=== PATIENT | male | born 1985 | race Caucasian/White ===

== ENCOUNTER 2018-08-21 14:37 | Outpatient (CLI) | payer BC, SELFPAY ==
--- NOTE | 2018-08-21 14:29 | DI.RAD_ITS ---
SYMPTOMS/DIAGNOSIS: LEFT HIP PAIN, POPPING AND CREPITUS LEFT HIP AND PELVIS: No bony or joint abnormality is seen.
== END 2018-08-21 14:57 ==
PROVIDERS: Visit Provider Student in an Organized Health Care Education/Training Program
DX: M25.552 Pain in left hip (principal)
CPT/HCPCS: 73502

== ENCOUNTER 2020-11-10 10:58 | Outpatient (REF) | payer OTHER, SELFPAY ==
[2020-11-10 14:25] LABS: HCT 52.3 % (40.0-50.0); HGB 17.2 g/dL (13.5-17.5); MCH 30.7 pg (27.0-33.0); MCHC 32.9 % (32.0-36.0); MCV 93.2 fL (80-95); MPV 9.5 fL (8.0-11.0); Platelet Count 333 10^3/uL (130-400); RBC 5.61 10^6/uL (4.36-5.78); RDW 13.1 % (11.8-14.1); WBC 8.22 10^3/uL (4.4-10.8)
[2020-11-10 14:32] LABS: ALT 33 U/L (16-63); AST 23 U/L (15-37); Anion Gap 6.5 mmol/L (3-11); BUN 16 mg/dL (7-18); CO2 29.5 mmol/L (21.0-32.0); Calcium 9.8 mg/dL (8.5-10.1); Chloride 109 mmol/L (98-107); Glucose 69 mg/dL (74-106); Magnesium 2.2 mg/dL (1.8-2.4); Potassium 4.6 mmol/L (3.5-5.1); Sodium 145 mmol/L (136-145)
[2020-11-11 09:45] LABS: HIV-1/2 Ag & Ab Screen Negative (Negative)
[2020-11-11 10:38] LABS: Hepatitis C Ab w Rflx HCV PCR Negative (Negative)
== END 2020-11-10 10:59 | disposition home or self-care (01) ==
LOC: NCHCN 10:58
PROVIDERS: Visit Provider Nurse Practitioner Family
DX: Z11.4 Encounter for screening for human immunodeficiency virus [HIV] (principal); Z13.818 Encounter for screening for other digestive system disorders; R74.8 Abnormal levels of other serum enzymes; R00.2 Palpitations
CPT/HCPCS: 80048; 85027; 86803; 87389; 83735; 84450; 84460

== ENCOUNTER 2021-02-09 01:59 | Outpatient (CLI) | payer OTHER, SELFPAY ==
--- NOTE | 2021-02-09 10:30 | DI.US_ITS ---
APPROVED REPORT EXAM: Comprehensive 2D, Doppler, and color-flow Echocardiogram Patient Location: Out-Patient [facility] Fe[employer]: Mana Bartlett RDCS (AE) Indications: A Fib Other Information Study Quality: Good Conclusion Normal left ventricular wall thickness and chamber size. Estimated ejection fraction is 60%. There are no segmental wall motion abnormalities Normal right ventricular size and systolic function Both atria are normal in size There is no structural or hemodynamically significant valvular disease Normal estimated right ventricular systolic pressure Wall motion Left Ventricle The left ventricle is normal size. The left ventricular systolic function is normal. The left ventric ular ejection fraction is within the normal range. There is normal left ventricular wall thickness. T here is normal LV segmental wall motion. There is no ventricular septal defect visualized. LVEF is 60 %. Right Ventricle The right ventricle is normal size. The right ventricular systolic function is normal. The RVSP is 22 .4 mmHg. Atria The left atrium size is normal. The right atrium size is normal. The interatrial septum is intact wit h no evidence for an atrial septal defect. Aortic Valve The aortic valve is normal in structure. Aortic valve is trileaflet. There is no aortic valvular sten osis. No aortic regurgitation is present. Mitral Valve The mitral valve is normal in structure. No evidence of mitral valve stenosis. Trace to mild mitral r egurgitation. Tricuspid Valve The tricuspid valve is normal in structure. There is no tricuspid valve stenosis. Trace tricuspid reg urgitation. Pulmonic Valve The pulmonary valve is normal in structure. There is no pulmonic valvular stenosis. There is no pulmo kristel valvular regurgitation. Great Vessels The aortic root is normal in size. The ascending aorta is normal in size. Aortic arch is normal in ca liber. IVC is normal in size and collapses >50% with inspiration. Pericardium There is no pericardial effusion. 2D Dimensions IVSD d PLAX 0.91 cm M: 0.6-1.2 LV Vol A2C d MOD 153.8 mL LVPW d PLAX 0.92 cm M: 0.6 - 1.2 LV Vol A4C d MOD 131.1 mL LVID d PLAX 5.02 cm M: 4.2 - 5.8 LA vol/ BSA A2C s A-L 37.5 mL/m2 LVDs 3.50 cm M: 2.5 - 4.0 LA vol/ BSA A4C s A-L 23.7 mL/m2 Ao Root d 2.96 cm M: 3.1 - 3.7 LA Vol/ BSA Biplane s A-L 30.7 mL/m2 RA Area A4C 18.82 cm2 LA Area A4C s MOD 18.81 cm2 RA Vol/ BSA A4C s A-L 28.0 mL/m2 LA Area A2C s MOD 22.98 cm2 Ao Asc Diam d 3.24 cm M: 2.6 - 3.4 LV EF A4C MOD 59.7 % LV EF Teichholz 56.1 % LV EF A2C MOD 57.2 % LVEF (Baldwin's) 58.12 % M: 52 - 72 LV EF Biplane MOD 58.1 % LV Volume 106.03 mL M: 62 - 150 SV 84.89 mL LV Volume Index 47.97 mL/m2 M: 34 - 74 SV Index 38.37 mL/m2 LV Vol Biplane MOD 146.1 mL FS 29.40 % M-Mode TAPSE 2.84 cm (M/F) >1.7 LV Diastology MV E' medial 0.116 (>0.07 m/s) E/A Ratio 2.2 LV E/e MED 5.75 (<14) MV E Vmax 0.67 (0.4-1.3 m/s) MV E' lateral 0.122 (>0.1 m/s) MV A Vmax 0.30 (0.4-1.3 m/s) LV E/e LAT 5.45 (<14) MV E/A Ratio 1.96 MV E/E' medial 5.75 MV E/E' lateral 5.48 Aortic Valve LVOT Area 3.83 cm2 AoV Area Vmax 3.37 cm2 LVOT Vmax 1.00 m/s AoV Area/ BSA (Vmax) 1.52 cm2/m2 LVOT Mean Braxton. 0.61 m/s URSZULA Mean Braxton. 2.90 cm2 LVOT Peak Grad 4.0 mmHg URSZULA Mean Braxton. Index 1.31 cm2/m2 LVOT Mean Grad 1.8 mmHg LVOT VTI 0.194 m LVOT Diam s 2.20 cm AoV Vmax 1.13 m/s Velocity Ratio 0.88 AoV Mean Braxton. 0.81 m/s AoV Peak Grad 5.1 mmHg LVOT SV 74.18 mL AoV Mean Grad 2.9 mmHg AoV VTI 0.213 m AoV Area VTI 3.48 cm2 AoV Area/ BSA (VTI) 1.57 cm/m2 Mitral Valve MV DT 209 (160-240 msec) MV PHT 61 msec MV Area PHT 3.63 cm2 MV VTI 0.249 m MV Area VTI 2.98 (4.0-6.0 cm2) Pulmonary Valve PV Vmax 0.88 (0.5-1.5 m/s) RVOT Peak Gr. 2.04 mmHg PV Peak Grad 3.1 mmHg RVOT Mean Gr. 0.95 mmHg PV Mean Grad 1.7 mmHg RVOT VTI 0.148 m PV VTI 0.157 m RVOT Vmax 0.71 m/s Tricuspid Valve TR Peak Grad 19.3 mmHg TR Vmax 2.20 m/s RA Pressure 3.00 mmHg RVSP (TR) 22.4 mmHg
== END 2021-02-09 02:19 ==
PROVIDERS: Visit Provider Internal Medicine Cardiovascular Disease
DX: I48.91 Unspecified atrial fibrillation (principal)
CPT/HCPCS: 93306

== ENCOUNTER 2023-02-23 10:14 | Outpatient (CLI) | payer OTHER, SELFPAY ==
--- NOTE | 2023-02-23 10:07 | DI.RAD_ITS ---
Exam(s) XR HIP RT COMPLETE AP PELVIS EXAM: XR HIP RT COMPLETE AP PELVIS CLINICAL HISTORY: RIGHT HIP PAIN. TECHNIQUE: 2D digital imaging was performed. Two views COMPARISON: CR XR hip LT complete AP pelvis from 08/21/2018 FINDINGS: BONES: No acute fracture is present. No bony destructive lesion is seen. JOINTS: No dislocation present. Hip joint spaces are maintained. No significant acetabular spurrin g. SI joints are unremarkable. SOFT TISSUE: Normal. IMPRESSION: No acute abnormality. DATA REPOSITORY: RADIATION DOSE DELIVERED:
== END 2023-02-23 10:15 | disposition home or self-care (01) ==
LOC: DIORS 10:14
PROVIDERS: PCP Nurse Practitioner Family; Referring Provider Nurse Practitioner Family; Visit Provider Physician Assistant
DX: M25.551 Pain in right hip (principal)
CPT/HCPCS: 73502

== ENCOUNTER 2024-02-21 12:22 | Outpatient (REF) | payer BC, SELFPAY ==
--- OUTSIDE RECORDS SUMMARY | 2024-02-21 12:24 | XMS_ITS | Encounter Summary ---
Author Organization [facility] Address [facility] [place] [address] Care Team Providers Care Labor And Delivery Nurse Name Role Phone Sharri Rosario APRN Primary Care Provider [phone] Reason for Visit * Diagnostic Test (Routine) - Closed Specialty Diagnoses / Procedures Referred By Davidson t Referred To Contact Sleep Center Diagnoses Paroxysmal atrial fibrillation Non-restorative sleep Procedures Home Sleep Study Gregoria Hsieh APRN [facility] [place] [address] [facility] Sleep Medicine [address] [place] [address] Referral ID Status Reason Start Date Expiration Date V isits Requested Visits Authorized [id number] Closed Specialty Service Requested 09/12/2023 09/11/2024 1 1 Encounter Details Date Type Department Care Team (Late st Contact Info) Description 11/08/2023 12:00 PM EDT Procedure visit Sleep Center at [facility] [address] [place] [address] Nikki Fontanez MD [facility] [place] [address] Paroxysmal atrial fibrillation; Non-restorative sleep Social History Tobacco Use Types Packs/Day Years Used Date Smoking Tobacco: Former Cigarettes Passive Smoke Exposure: Past Smokeless Tobacco: Former Alcohol Use Standard Drinks/Week Comments Not Currently 0 (1 standard drink = 0.6 oz pur e alcohol) Sex and Gender Information Value Date Recorded Sex Assigned at Not on file Gender Identity Not on file Sexual Orientation Not on file documented as of this encounter Progress Notes * Nikki Fontanez MD - 11/08/2023 12:00 PM EDT Images from the original note were not included. REPORT OF DIAGNOSTIC HOME SLEEP TEST IDENTIFYING INFORMATION Roni Horn : 1985 REFERRING PHYSICIAN: Gregoria Hsieh APRN PRIMARY CARE PHYSICIAN: Sharri Rosario APRN History Of Present Illness: Roni Horn is a 38 y.o. male who presents for a home based polysomnogram in the setting of new atrial fibrillation diagnosis, s/p ablation. H/o anxiety. Denies snoring. Reported non-restorative sleep. Limited Polysomnography: The recording includes chest/abdominal respiratory effort, nasal pressure air flow, snoring and oxygen saturation (by pulse oximeter). Comment: - Respiratory: EDNA 4% of 4 was noted with a minimum saturation of 88%. Mean saturation of 93%. [place] 1 minute was spent with a saturation less than or equal to 88%. - Cardiac: Heart rate ranged from 35 to 110 bpm with an average heart rate of 57 bpm. - Other: Total recording time of 583 minutes. Assessment: Mr. Roni Horn is a 38 y.o. male whose home sleep test was non- diagnostic for obstructive sleep apnea. Mild cyclic desaturations to a low of 88% were observed, mean 93%. Home sleep testing may underestimate sleep apnea severity. Results and recommendations relayed via [facility]. Recommendations: To clarify if sleep disordered breathing is playing a role in presenting symptoms,a full in lab diagnostic polysomnogram is recommended. - In lab PSG, split for AHI 30 *Results to Gregoria Hsieh APRN for review and care coordination. Nikki Fontanez MD [facility] HOME SLEEP APNEA TEST REPORT Patient Roni Horn Study Date 11/08/2023 1985 Age 37 Height 6'5 Weight (lbs.) 196 BMI 23.2 PSG Tech: DERIK Gutierrez Scoring Tech DERIK Michel Interpreting Physician Ordering Provider Fellow Physician ENTER General Test Details Type III home sleep apnea testing was performed utilizing nasal pressure, single thoracoabdominal movement, heart rate, and oxygen saturation according to established AASM guidelines. Recording Start Time: :13:03 Monitoring Start Time: ::03 Recording End Time: : Monitoring End Time: :03 Total Recording Time (TRT): 583.0 minutes Monitoring Time (MT): 583.0 minutes Respiratory Details Respiratory Event Total Count Index (events/hr) Obstructive apnea 5 0.5 Mixed apnea 0 0.0 Central apnea 24 2.5 Sum of all apnea types 29 3.0 Hypopneas without associated desaturation 0 0.0 Hypopneas with desaturation >=4% (CMS) 10 1.0 4% Respiratory Event Index (4%EDNA): 4.0 *Includes the sum of all apneas and hypopneas (assoc. with desaturation of >=4%) per hour of monitoring. 4% AHI (CMS): 4.0 *Includes the sum of all apneas and hypopneas (assoc. with desaturation of >=4%) per hour of monitoring. Tom-Gutierrez Breathin.0% of total monitoring time Minimum SpO2: 88% Average SpO2 (during TRT): 93% SpO2 <= X%: Total Time <=90% 0.4 min <=89% 0.2 min <=88% 0.1 min SpO2 Ranges: Total Time 90%-99% 571.8 min 80%-90% 0.2 min 70%-80% 0.0 min 60%-70% 0.0 min 0%-60% 0.0 min Cardiac Details Minimum Heart Rate 35 bpm Maximum Heart Rate 110 bpm Average Heart Rate 57 bpm Graphs Time Scale Respiratory Event Graph SpO2 Trend * Gregoria Hsieh APRN - 11/08/2023 12:00 PM EDT PSG ordered. Please contact to schedule. Thank you documented in this encounter Plan of Treatment Upcoming Encounters Date Type Department Care Team (Late st Contact Info) Description 02/29/2024 7:30 PM EDT Procedure visit Sleep Center at [facility] [address] [place] [address] 04/11/2024 1:00 PM EST Office Visit Cardiology at [address] [address] Gerardo Lobo MD [facility] [place] [address] documented as of this encounter Visit Diagnoses Diagnosis Paroxysmal atrial fibrillation Atrial fibrillation Non-restorative sleep Other sleep disturbances documented in this encounter Care Teams Labor And Delivery Nurse Relationship Specialty Start Date End Date Sharri Rosario APRN [address] [place] [address] PCP - General Family Medicine 06/01/22 documented as of this encounter
--- OUTSIDE RECORDS SUMMARY | 2024-02-21 12:24 | XMS_ITS | Clinical Summary ---
Author Organization [place] [address] Care Team Providers Care Audit Director Name Role Phone Sharri Rosario APRN Primary Care Provider Allergies Active Allergy Reactions Criticality Noted Date Comments Codeine Nausea Only 07/04/2022 Medications Medication Sig Dispensed Refills Start Date End Date Status traZODone (Desyrel) 50 mg tablet 1/2 to 2 tabs HS as directed (I provided him a specific titration schedule.Please call our office if questions.) 30 tablet 2 05/31/2023 Active Additional Information Patient not taking.Reported on 01/29/2024 LORazepam (Ativan) 0.5 mg tablet 1 tab TID PRN. 20 tablet 10/17/2023 Active Additional Information Patient not taking.Reported on 11/27/2023 LORazepam (Ativan) 0.5 mg tablet 1 tab TID PRN. 60 tablet 2 10/17/2023 Active dilTIAZem XR (Dilacor XR) 120 mg ER (XR/XT) 24 hr capsuleIndication s:SVT (supraventricular tachycardia) Take 1 capsule by mouth daily for 30 days. 30 capsule 01/29/2024 02/28/2024 Active hydrOXYzine (Atarax) 25 mg tablet Take 1 tablet by mouth 3 times daily as needed for Itching. 45 tablet 2 02/05/2024 Active buPROPion SR (Wellbutrin SR) 100 mg SR 12 hr tablet 1 tab QAM x 4 days then increase to 1 tab BID. 60 tablet 2 02/05/2024 Active Active Problems Problem Noted Date Diagnosed Date Paroxysmal atrial fibrillation 07/16/2023 PAF (paroxysmal atrial fibrillation) 07/04/2022 Encounters Date Type Department Care Team Description 02/20/2024 Telephone Cardiology at [address] [address] Chary Soriano RN 01/29/2024 1:40 PM EDT Office Visit Cardiology at [place] [phone] Gerardo Lobo MD SVT (supraventricular tachycardia) 01/29/2024 Travel 12/24/2023 6:45 AM EDT - 12/24/2023 11:59 PM EDT Hospital Encounter Non-[place] [address] MD PAF (paroxysmal atrial fibrillation); History of radiofrequency ablation (RFA) for complex left atrial arrhythmia; Palpitations Discharge Disposition: Home 11/28/2023 Orders [place] [address] Ranjit Padilla MD Left wrist injury, initial encounter 11/27/2023 1:30 PM EDT - 11/27/2023 11:59 PM EDT Hospital Encounter Non-[place]vasive [place] [address] MD PAF (paroxysmal atrial fibrillation); History of radiofrequency ablation (RFA) for complex left atrial arrhythmia; Dilated cardiomyopathy Discharge Disposition: Home 11/27/2023 1:00 PM EDT Office Visit Cardiology at [address] [address] Peter Jaramillo PA PAF (paroxysmal atrial fibrillation); History of radiofrequency ablation (RFA) for complex left atrial arrhythmia; Dilated cardiomyopathy; Palpitations 11/27/2023 Travel 11/25/2023 12:10 AM EDT Ancillary Procedure Radiology Library at [facility] [place] [address] Sharri Rosario APRN 11/25/2023 12:05 AM EDT Ancillary Procedure Radiology Library [place] [facility] [place] [address] Sharri Rosario APRN 11/25/2023 Ancillary Procedure Radiology Library [place] [address] Sharri Rosario APRN 11/22/2023 Orders Only Sleep Center at 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 Paroxysmal atrial fibrillation; Non-restorative sleep; Anxiety; Depression, unspecified depression type from Last 3 Months Family History Relation Status Comments Father Alive Mother Alive Social History Tobacco Use Types Packs/Day Years Used Date Smoking Tobacco: Former Cigarettes Passive Smoke Exposure: Past Smokeless Tobacco: Former Tobacco Cessation:Counseling Given: Not Answered Alcohol Use Standard Drinks/Week Comments Not Currently 0 (1 standard drink = 0.6 oz pur e alcohol) Sex and Gender Information Value Date Recorded Sex Assigned at Not on file Gender Identity Not on file Sexual Orientation Not on file Last Filed Vital Signs Vital Sign Reading Time Taken Comments Blood Pressure 141/91 01/29/2024 1:35 PM EDT Pulse 56 01/29/2024 1:35 PM EDT Temperature 36.9 ??C (98.4 ??F) 07/17/2023 5:25 AM ED T Respiratory Rate 20 07/17/2023 5:25 AM EDT Oxygen Saturation 100% 01/29/2024 1:35 PM EDT Inhaled Oxygen Concentration - - Weight 87.7 kg (193 lb 6.4 oz) 01/29/2024 1:35 P M EDT Height 195.6 cm (6' 5) 01/29/2024 1:35 PM EDT Body Mass Index 22.93 01/29/2024 1:35 PM EDT Plan of Treatment Upcoming Encounters Date Type Department Care Team (Late st Contact Info) Description 02/29/2024 7:30 PM EDT Procedure visit Sleep Center at [facility] [address] [place] [phone] 04/11/2024 1:00 PM EST Office Visit Cardiology at [address] [place] [phone] Gerardo Lobo MD [facility] [address] [place] [address] Health Maintenance Due Date Last Done Comments HIV screen 2002 Hepatitis C Screening 2002 Lipid Screening 2002 Hepatitis B vaccine (0-59 yrs) (1) 11/18/2003 Tetanus/Diphtheria/Pertussis Vaccines (1 - Tdap) 11/17 Covid-19 Vaccine (1 - 2022- season) 2023 Influenza (Flu) vaccine (1 o f 1 - Influenza standard series) 12/30/2023 Procedures Procedure Name Priority Date/Time Associated Diagnosis Comments ZIOPATCH 48 HRS-15 DAYS Routine 12/24/2023 6:45 AM EDT PAF (paroxysmal atrial fibrillation) History of radiofrequency ablation (RFA) for complex left atrial arrhythmia Palpitations ECHO COMPLETE Routine 11/27/2023 2:40 PM EDT PAF (paroxysmal atrial fibrillation) History of radiofrequency ablation (RFA) for complex left atrial arrhythmia Dilated cardiomyopathy EKG 12-LEAD Routine 11/27/2023 1:35 PM EDT PAF (paroxysmal atrial fibrillation) DIAGNOSTIC RADIOLOGY SCAN 11/27/2023 12:00 AM EDT FILM LIBRARY STORAGE ONLY CT WRIST Routine 11/25/2023 12:10 AM EDT FILM LIBRARY STORAGE ONLY DX UPPER EXTREMITY Routine 11/25/2023 12:05 AM EDT FILM LIBRARY STORAGE ONLY DX HAND Routine 11/25/2023 12:00 AM EDT from Last 3 Months Results * Ziopatch 48 Hrs-15 Days (12/24/2023 6:45 AM EDT) Total Enrollment Period [id number] Anatomical Region Laterality Modality Other 12/24/2023 Narrative 01/21/2024 3:01 PM EDT [facility] ? Zio Patch Ambulatory Cardiac Event Monitor Report Indication for Study: [Paroxysmal atrial fibrillation] Duration of recording: ??[11 days 12 hours] Summary Data: Minimum rate: ??[34] Average rate: ??[78] Maximum rate: ??[175] Predominant Rhythm: ??[Normal sinus rhythm] Atrial fibrillation: ??[None seen] Significant Pauses: ??[None seen] Patient Diary Events: Triggered Events (button pushes): ??[10] Diary Events: [0] Ectopic beats: Atrial premature beats (APC? s): [Less than 1%] Ventricular premature beats (VPC's): [Less than 1%] Patel Rhythm Findings: 1. ??[Throughout the recording normal sinus rhythm is the predominant rhythm with an average heart rate of 78 bpm. Rare isolated atrial premature contractions and rare atrial couplets are seen. ??There were 7 episodes of supraventricular tachycardia the longest lasting 11 beats at a maximum heart rate of 207 bpm. ??No definite atrial fibrillation was seen Rare premature ventricular contractions and ventricular couplets seen. ??No complex ventricular tachycardia episodes seen No pauses] Note: ??The full PDF version of this Zio evaluation is available for review. ??For medical providers accessing via the electronic medical record, the PDF can be found on the Chart Review > Media tab. ??For patients accessing the study from [facility] (My Chart), click on the link or links found in the IMAGES area below the text of the report. Gerardo Lobo MD FACC Dwaine Lane MD CARDIAC SERVICES ORD ERABLES * ECHO COMPLETE (11/27/2023 2:40 PM EDT) EF 69 HEARTLAB SYSTEM Anatomical Region Laterality Modality Cardiac Other 11/27/2023 2:09 PM EDT Narrative 11/27/2023 5:26 PM EDT 1 [place] [address] ? Echocardiogram Report Name: MERYL HORN ?Study Date: 11/27/2023 02:09 PMBP: 136/76 mmHg ? Patient Location: : 1985 ? Height: 196 cm ? Account: [id number] Age: 38 yrs ? Weight: 89 kg Gender: Male ?BSA: 2.2 m2 Ordering Physician: DWAINE LANE Referring Physician: PETER JARAMILLO Performed By: Javan Bolivar RDCS Reason For Study: PAF (paroxysmal atrial fibrillation) Interpreting Fellow: Basilio Foy. Exam Location: [facility]. Interpretation Summary -Left ventricle is of normal chamber size and wall thickness. Systolic function is normal with an ejection fraction of 69% and no wall motion abnormalities. -Right ventricle is of normal size and function. -There is mild bi-atrial dilation. -There is no hemodynamically significant valve disease. - Compared with previous study of 06/20/23, systolic function has normalized, severe diastolic dysfunction no longer present Procedure Complete-47937. 3D - 23885. Satisfactory quality. There is normal sinus rhythm. Left Ventricle Left ventricle is of normal size. Wall thickness is normal. There is no left ventricular outflow tract obstruction. There is no ventricular septal defect. Left ventricular systolic function is normal. The left ventricular ejection fraction is 69% by Baldwin's biplane. There are no segmental wall motion abnormalities. Right Ventricle The right ventricle is of normal size. Right ventricular systolic function is normal. Left Atrium The left atrium is mildly dilated. There is no evidence for a patent foramen ovale. Right Atrium The right atrium is mildly dilated. Aortic Valve The aortic valve is tricuspid. There is no aortic stenosis. There is no aortic regurgitation. Mitral Valve The mitral valve is structurally normal. There is trace mitral regurgitation. Tricuspid Valve The tricuspid valve is structurally normal. There is trace tricuspid regurgitation. Pulmonic Valve The pulmonic valve appears to be structurally normal. There is trace pulmonic valve regurgitation. Great Arteries The diameter at the level of the sinuses of Valsalva is 3.5 cm. The maximum diameter of the proximal ascending aorta is 3.2 cm. Venous Inferior vena cava is normal in size. Inferior vena cava collapse greater than 50% with respiration. Pericardium/Pleural The pericardium appears normal. Hemodynamics Pulmonary artery hypertension could not be assessed due to inadequate tricuspid regurgitation jet. The estimated right atrial pressure is 3mmHg. Left ventricular diastolic function is normal. Left ventricular filling pressure is normal. Ejection Fraction ?2D Measurements ? Volumes EF(MOD-bp): 69.2 % ?IVSd: 0.96 cm ?LAV(MOD- bp) Indexed: ?LVIDd: 5.0 cm ?LVIDs: 2.9 cm ?37.8 ml/m2 ?LVPWd: 1.1 cm ?RA A4Cs_phl: 18.4 cm2 ?RWT: 0.42 {ratio} ?EDV(MOD-bp) Indexed: ?LV mass(C)d: 187.3 grams ? 56.5 ml/m2 ?LV mass(C)dI: 84.3 grams/m2 ?ESV(MOD- bp) Indexed: ?Ao root diam: 3.5 cm ? 17.4 ml/m2 ?Ao root diam index: 1.6 ?asc Aorta Diam: 3.2 cm ?TAPSE_phl: 2.4 cm Doppler MV E max braxton: 77.6 cm/sec MV A max braxton: 52.3 cm/sec MV E/A: 1.5 MV dec time: 0.22 sec Lat Peak E' Braxton: 13.2 cm/sec E/e' (lat): 5.9 Med Peak E' Braxton: 9.5 cm/sec E/e' (med): 8.2 E/e' Average: 7.0 I ?WMSI = 1.00 ? % Normal = 100 ?Segments ??Size X - Cannot ?2 - ?4 - ?1-2 ? small Interpret ?1 - Normal ?? Hypokinetic 3 - Akinetic Dyskinetic ?? 3-5 ? moderate 5 - ? 6-14 ?large Aneurysmal ?15-16 ?? diffuse Procedure Note Rod Anderson MD - 11/27/2023 1 [place] [address] Echocardiogram Report Name: MERYL HORN Study Date: 402:09 PMBP: 136/76 mmHg Patient Location: : 1985 Height: 196 cm Account: [id number] Age: 38 yrs Weight: 89 kg Gender: Male BSA: 2.2 m2 Ordering Physician: DWAINE LANE Referring Physician: PETER JARAMILLO Performed By: Javan Bolivar RDCS Reason For Study: PAF (paroxysmal atrial fibrillation) Interpreting Fellow: Basilio Foy. Exam Location: [facility]. Interpretation Summary -Left ventricle is of normal chamber size and wall thickness. Systolicfunction is normal with an ejection fraction of 69% and no wall motionabnormalities. -Right ventricle is of normal size and function. -There is mild bi-atrial dilation. -There is no hemodynamically significant valve disease. - Compared with previous study of 06/20/23, systolic function hasnormalized, severe diastolic dysfunction no longer present Procedure Complete-45628. 3D - 61664. Satisfactory quality. There is normal sinusrhythm. Left Ventricle Left ventricle is of normal size. Wall thickness is normal. There is noleft ventricular outflow tract obstruction. There is no ventricular septaldefect. Left ventricular systolic function is normal. The left ventricular ejectionfraction is 69% by Baldwin's biplane. There are no segmental wall motionabnormalities. Right Ventricle The right ventricle is of normal size. Right ventricular systolic functionis normal. Left Atrium The left atrium is mildly dilated. There is no evidence for a patentforamen ovale. Right Atrium The right atrium is mildly dilated. Aortic Valve The aortic valve is tricuspid. There is no aortic stenosis. There is noaortic regurgitation. Mitral Valve The mitral valve is structurally normal. There is trace mitralregurgitation. Tricuspid Valve The tricuspid valve is structurally normal. There is trace tricuspid regurgitation. Pulmonic Valve The pulmonic valve appears to be structurally normal. There is tracepulmonic valve regurgitation. Great Arteries The diameter at the level of the sinuses of Valsalva is 3.5 cm. Themaximum diameter of the proximal ascending aorta is 3.2 cm. Venous Inferior vena cava is normal in size. Inferior vena cava collapse greaterthan 50% with respiration. Pericardium/Pleural The pericardium appears normal. Hemodynamics Pulmonary artery hypertension could not be assessed due to inadequatetricuspid regurgitation jet. The estimated right atrial pressure is 3mmHg. Leftventricular diastolic function is normal. Left ventricular filling pressure isnormal. Ejection Fraction 2D Measurements Volumes EF(MOD-bp): 69.2 % IVSd: 0.96 cm LAV(MOD-bp)Indexed: LVIDd: 5.0 cm LVIDs: 2.9 cm 37.8 ml/m2 LVPWd: 1.1 cm RA A4Cs_phl: 18.4cm2 RWT: 0.42 {ratio} EDV(MOD-bp)Indexed: LV mass(C)d: 187.3 grams 56.5 ml/m2 LV mass(C)dI: 84.3 grams/m2 ESV(MOD-bp)Indexed: Ao root diam: 3.5 cm 17.4 ml/m2 Ao root diam index: 1.6 asc Aorta Diam: 3.2 cm TAPSE_phl: 2.4 cm Doppler MV E max braxton: 77.6 cm/sec MV A max braxton: 52.3 cm/sec MV E/A: 1.5 MV dec time: 0.22 sec Lat Peak E' Braxton: 13.2 cm/sec E/e' (lat): 5.9 Med Peak E' Braxton: 9.5 cm/sec E/e' (med): 8.2 E/e' Average: 7.0 I WMSI = 1.00 % Normal = 100 SegmentsSize X - Cannot 2 - 4 - 1-2small Interpret 1 - Normal Hypokinetic 3 - Akinetic Dyskinetic 3-5moderate 5 - 6-14large Aneurysmal 15-16diffuse Dwaine Lane MD ECHO ORDERABLES * EKG 12 Lead (11/27/2023 1:35 PM EDT) Ventricular rate 83 BPM MUSE SYSTEM Atrial Rate 83 BPM MUSE SYSTEM P-R Interval 150 ms MUSE SYSTEM QRS Duration 92 ms MUSE SYSTEM Q-T Interval 344 ms MUSE SYSTEM QTC Calculated (Bezet) 404 ms MUSE SYSTEM Calculated P [place] 80 degrees MUSE SYSTEM Calculated R [place] 95 degrees MUSE SYSTEM Calculated T [place] 19 degrees MUSE SYSTEM INTERPRETATION Normal sinus rhythm Rightward axis Pulmonary disease pattern Abnormal ECG When compared with ECG of 16-JUL-2023 16:20, No significant change was found Confirmed by MD Letty, Ambrose ([id number]) on 11/27/2023 3:26:35 PM MUSE SYSTEM 11/27/2023 1:35 PM EDT 11/27/2023 3:[address] MD ECG ORDERABLES MUSE SYSTEM * Scan Doc: Diagnostic Radiology (11/27/2023 12:00 AM EDT) Anatomical Region Laterality Modality Other Narrative 11/27/2023 12:00 AM EDT Ordered by an unspecified provider. Scanning Provider MEDIA MGR SCAN EXT O RDR/RSLT * Film Library- Storage Only CT Wrist (11/25/2023 12:10 AM EDT) Narrative [facility] - 11/27/2023 12:11 PM EDT This exam is auto-finalizing. It's purpose is for storage only. Sharri Rosario APRN [facility] FILM LIBRARY ORD ERABLES Performing Organization Address [facility] de Phone Number [place], [place] * Film Library- Storage Only DX Upper Extremity (11/25/2023 12:05 AM EDT) Narrative [facility] - 11/27/2023 12:11 PM EDT This exam is auto-finalizing. It's purpose is for storage only. Sharri Rosario APRN [facility] FILM LIBRARY ORD ERABLES Performing Organization Address [facility] de Phone Number [place], [place] * Film Library- Storage Only DX Hand (11/25/2023 12:00 AM EDT) [facility] - 11/27/2023 12:11 PM EDT This exam is auto-finalizing. It's purpose is for storage only. Sharri Rosario APRN [facility] [employer] ORD ERABLES Performing Organization Address [facility] de Phone Number [place], [place] from Last 3 Months Care Teams Audit Director Relationship Specialty Start Date End Date Sharri Rosario APRN [address] [place] [address] PCP - General Family Medicine 06/01/22
--- OUTSIDE RECORDS SUMMARY | 2024-02-21 12:24 | XMS_ITS | Encounter Summary ---
Author Organization [facility] Address [facility] [place] [address] Care Team Providers Care Brazer Induction Name Role Phone Sharri Rosario APRN Primary Care Provider [phone] Encounter Details Date Type Department Care Team (Latest Contact Info) Description 10/10/2023 8:19 AM EDT - 10/10/2023 11:59 PM EDT Hospital Encounter XRay at [address] [place] [address] Sharri Rosario APRN [address] [place] [address] Abnormality of breathing Discharge Disposition: Home Social History Tobacco Use Types Packs/Day Years [...] on file documented as of this encounter Medications at Time of Discharge Medication Sig Dispensed Refills Start Date End Date traZODone (Desyrel) 50 mg tablet 1/2 to 2 tabs HS as directed (I provided him a specific titration schedule.Please call our office if questions.) 30 tablet 2 05/31/2023 buPROPion SR (Wellbutrin SR) 100 mg SR 12 hr tablet 1 tab QD (in addition to 150 mg XL every morning on a separate Rx). 30 tablet 2 10/10/2023 02/05/2024 buPROPion SR (Wellbutrin SR) 100 mg SR 12 hr tablet 1 tab every morning for 1 week and then D/C unless one tab a day proves beneficial. On a separate Rx will eprescribe bupropion 150 mg XL. 7 tablet 4 08/31/2023 12/20/2023 buPROPion XL (Wellbutrin XL) 150 mg XL 24 hr tablet Take 1 tablet by mouth every morning. He will begin 150 mg XL after trying 100 mg SR for a week. However if 100 mg SR provides benefit he will remail on 100 mg SR and not take 150 mg XL. 30 tablet 2 08/31/2023 12/20/2023 LORazepam (Ativan) 0.5 mg tablet 1 tab TID PRN. 60 tablet 2 08/02/2023 10/17/2023 apixaban (Eliquis) 5 mg tablet Take 1 tablet by mouth 2 times daily for 90 days. 07/17/2023 10/15/2023 documented as of this encounter Plan of Treatment Upcoming Encounters Date Type Department Care Team (Late st Contact Info) Description 02/29/2024 7:30 PM EDT Procedure visit Sleep Center at [address] [phone] 04/11/2024 1:00 PM EST Office Visit Cardiology at [address] [phone] Gerardo Lobo MD [facility] [place] [address] documented as of this encounter Procedures Procedure Name Priority Date/Time Associated Diagnosis Comments XR CHEST PA AND LATERAL Routine 10/10/2023 8:28 AM EDT Abnormality of breathing documented in this encounter Results * XR Chest PA & Lateral (Generic) (10/10/2023 8:28 AM EDT) WORKSTATION ID [id number] RAD Anatomical Region Laterality Modality Chest N/A Digital Radiogra phy Impressions 10/10/2023 10:24 AM EDT Normal chest radiographs. Thank you for letting us participate in the care of this patient. ??If you are a health care provider and have any questions regarding this report, please contact the number below. ??For patients who have questions please contact the health dog daycare provider that requested your imaging first. ? Narrative 10/10/2023 10:24 AM EDT EXAMINATION: XR CHEST PA AND LATERAL (GENERIC) CLINICAL HISTORY: Breathing abnormality difficulty taking deep breaths TECHNIQUE: PA and lateral views of the chest COMPARISON: Chest radiographs July 16, 2023 FINDINGS: Lungs are clear without pleural effusion or pneumothorax. Cardiomediastinal contours and pulmonary vasculature are normal. No free air below the diaphragm or focal extrathoracic soft tissue abnormality. No displaced fracture or destructive bone lesion. Suture anchors from a left glenoid labral repair are in unchanged position. Procedure Note Tari No MD - 10/10/2023 EXAMINATION: XR CHEST PA AND LATERAL (GENERIC) CLINICAL HISTORY: Breathing abnormality difficulty taking deep breaths TECHNIQUE: PA and lateral views of the chest COMPARISON: Chest radiographs July 16, 2023 FINDINGS: Lungs are clear without pleural effusion or pneumothorax. Cardiomediastinal contours and pulmonary vasculature are normal. No free air below the diaphragm or focal extrathoracic soft tissueabnormality. No displaced fracture or destructive bone lesion. Suture anchors from aleft glenoid labral repair are in unchanged position. IMPRESSION Normal chest radiographs. Thank you for letting us participate in the care of this patient. If youare a health care provider and have any questions regarding this report,please contact the number below. For patients who have questions please contactthe health dog daycare provider that requested your imaging first. Sharri Rosario APRN IMG DX ORDERABLES documented in this encounter Visit Diagnoses Diagnosis Abnormality of breathing Respiratory abnormality, unspecified documented in this encounter Care Teams Brazer Induction Relationship Specialty Start Date End Date Sharri Rosario APRN [address] [place] [address] PCP - General Family Medicine 06/01/22 documented as of this encounter
--- OUTSIDE RECORDS SUMMARY | 2024-02-21 12:24 | XMS_ITS | Encounter Summary ---
Author Organization [facility] Address [address] [place] [address] Care Team Providers Care Sugar Refiner Name Role Phone Sharri Rosario Primary Care Provider [phone] Reason for Referral * Consult (Routine/Next Available) - Receiving Office to Obtain Authorization Specialty Diagnoses / Procedures Referred By Contac t Referred To Contact Orthopedic Surgery Diagnoses Closed fracture of left wrist, initial encounter [facility] Ed [address] [place] [address] [facility] Upper Extremity [address] [place] [address] Referral ID Status Reason Start Date Expiration Date Visits Requested Visits Authorized [id number] Receiving Office to Obtain Authorization Specialty Services Required 4 1 1 Question Answer Scheduling Comments (optional ? describe specific scheduling needs if applicable): Operative provider Reason for Request: Left distal radius fracture * Consult (Routine/Next Available) - Receiving Office to Obtain Authorization Specialty Diagnoses / Procedures Referred By Contac t Referred To Contact Orthopedic Surgery Diagnoses Closed fracture of left wrist, initial encounter Gm Freed MD [address] [facility], [address] [place] [address] [facility]o Upper Extremity [address] [place] [address] Referral ID Status Reason Start Date Expiration Date Visits Requested Visits Authorized [id number] Receiving Office to Obtain Authorization Specialty Services Required 4 1 1 Question Answer Reason for Request: cast Reason for Visit * Reason Comments Wrist Injury Pt arrives ambulator y to triage for evaluation of left wrist pain after falling on it while playing basketball this morning. CSMTs intact, pain with movement, mild swelling noted. Encounter Details Date Type Department Care Team (Late st Contact Info) Description 11/25/2023 10:16 EDT - 11/25/2023 15:38 EDT Emergency [facility] Emergency Department - [address] [address] Gm Freed MD [address] [place] [address], [address] [place] [address] Closed fracture of left wrist, initial encounter (Primary Dx) Discharge Disposition: Home or Self Care Social History Tobacco Use Types Packs/Day Years Used Date Smoking Tobacco: Never Assessed Interpersonal Safety Answer Date Record ed Physically Hurt Never 04/20/2020 Verbally Threaten Not on file 04/20/2020 Sex and Gender Information Value Date Recorded Sex Assigned at Not on file Gender Identity Male 11/25/2023 10:46 EDT Sexual Orientation Not on file documented as of this encounter Last Filed Vital Signs Vital Sign Reading Time Taken Comments Blood Pressure 130/89 11/25/2023 1535 EDT Pulse 57 11/25/2023 1535 EDT Temperature 36.6 ??C (97.9 ??F) 11/25/2023 1535 EDT Respiratory Rate 18 11/25/2023 1535 EDT Oxygen Saturation 100% 11/25/2023 1535 EDT Inhaled Oxygen Concentration - - Weight 90.7 kg (200 lb) 11/25/2023 0957 EDT Height 195.6 cm (6' 5) 11/25/2023 0957 EDT Body Mass Index 23.72 11/25/2023 0957 EDT documented in this encounter Discharge Instructions * Attachments The following attachments cannot be sent through Care Everywhere. * Wrist Fracture ([place]) documented in this encounter Discharge Disposition Disposition Code Departure Means Destination Comment s Home or Self Skilled Nursing documented in this encounter Consult Notes * Peter Almanzar MD - 11/25/2023 0675 EDT Orthopaedic Surgery Consultation Consultation requested by: Dr. Freed for: Left distal radius fracture HPI: Roni Horn is a right-hand dominant 38 y.o. 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 Patient was playing [employer] basketball game and went for a jump and motion was bumped falling onto his left side. He landed on his left hand and wrist. He did develop some left wrist pain but he continued to play however his left wrist continued to hurt as he was playing and noticed some swelling beginning. He came to [facility] where he is found to have the above injuries. He currently endorses some weakness with pinch strength otherwise he has no numbness or paresthesias and other than wrist pain denies pain or injury to any other part of his body. Particularly denies pain to his left elbow. Ambulatory status: Independent Patient lives with his in [place], [place]. 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 Denies tobacco use, rare alcohol use denies IV drug use. Patient was seen and examined within 30 minutes of having received the consult and initially discussed with consulting provider. No past medical history on file. No past surgical history on file. Prior to Admission medications Not on File Allergies Allergen Reactions Codeine Stomach pain No family history on file. Social History: Occupational History Not on file Review of Systems: Per HPI Physical Exam: BP 130/89 (BP Cuff Location: Right arm, BP Patient Position: Semi fowlers) Pulse 57 Temp 36.6 ??C (97.9 ??F) (Oral) Resp 18 Ht (!) 195.6 cm (77) Wt 90.7 kg (200 lb) SpO2 100% BMI 23.72kg/m?? General: alert, awake, no apparent distress Respiratory: Brief wheezing in the right upper lobes otherwise clear to auscultation bilaterally with no appreciable rales CV: Regular rate and rhythm with S1 and S2 heard and no murmurs, no rubs, no gallops Focused Musculoskeletal and Neurovascular Examination Left upper extremity: - There is some swelling over the left dorsal wrist but there is no open injury or laceration no rash or open wounds - Tenderness to palpation at the left wrist post distal radius aspect in the ulnar side of around the ulnar styloid. otherwise, no tenderness to palpation of the phalanges, metacarpals, carpals, proximal forearm, elbow, humerus, scapular spine, acromion, clavicle. - Sensation intact to light touch in median, ulnar, radial, axillary nerve distributions - 5/5 strength in flexor pollicis longus, extensor pollicis longus, interossei, ancillary services manager therapy; 5/5 strength in elbow flexion, elbow extension, shoulder abduction - 2+ radial pulse Labs: Diagnostic Imaging: -Left hand, wrist, forearm radiographs demonstrate a left distal radius fracture primarily in the dorsal surface of the bone with impaction from the carpal bones. No evidence of volar cortex involvement or fracture. There is ulnar styloid fracture. No evidence of fracture within the carpal bones. - CT of the left wrist demonstrates a aforementioned dorsally impacted distal radius fracture involving the dorsal cortex but not the volar cortex. There is a bone island in the scaphoid but no evidence of scaphoid fracture carpal bone fracture. Ulnar styloid fracture as of known injury. There is greater than 2 mm articular step-off. Procedure: Obtained verbal consent. Risks, benefits, and alternatives discussed. Patient elected to proceed with placement of dorsal volar splint to left distal radius fracture. Post-procedure exam unchanged. Post-procedure images were the CT scans. No postreduction radiographs were obtained because no reduction was performed. A supervising physician was present/available for reynolds and critical portions of the procedure. Assessment: Roni Horn [id number] Roni Horn is a right-hand dominant 38 y.o. male with PMH of cardiac ablation (previously on Eliquis but no longer), left shoulder instability (status post open treatment of unknown procedure), who experienced a closed left distal radius fracture with articular impaction greater than 2 mm and a left ulnar styloid fracture after a basketball game injury. He was neurovascularly intact and was placed in a short arm splint. He was instructed to follow-up in our upper extremity clinic for management of his injury. Plan: No further acute orthopaedic intervention NWB left upper extremity, otherwise AAT Aggressive elevation Splint precautions provided: keep splint clean, dry, and intact. Return precautions/indications provided including new onset numbness, tingling, weakness, pain out of proportion of the injury. Follow-up in orthopedics upper extremity clinic. We will place referral. Pain management per emergency department provider Discussed with: Dr. Dilshad ALMANZAR MD 11/25/23 23:20 documented in this encounter ED Notes * Jackelyn Lopez RN - 11/25/2023 1537 EDT Pt discharged to home by private car with family. AVS reviewed and pt verbalized understanding. Allquestions answered. Pt ambulated to the exit with a steady gait. * Rose Mary Elizabeth RN - 11/25/2023 1515 EDT Pt given asif jerry and chicken sandwich * Rose Mary Elizabeth RN - 11/25/2023 1236 EDT Pt provided chicken sandwich, okay per Dr Freed. Updated on plan of care. Questions addressed. * Jackelyn Lopez RN - 11/25/2023 1141 EDT Pt reporting increase in pain and requesting pain medication. MD Abdiaziz notified. New bag of iceapplied. * Matt Leahy RN - 11/25/2023 0957 EDT Chief Complaint Patient presents with Wrist Injury Pt arrives ambulatory to triage for evaluation of left wrist pain after falling on it while playingbasketball this morning. CSMTs intact, pain with movement, mild swelling noted. * Gm Freed MD - 11/25/2023 0933 EDT Emergency Department Visit Medical Decision Making 38-year-old male with left wrist injury. Fracture of radius and ulnar. Seen by orthopedics and splinted. Will DC with Ortho follow-up. Medical Decision Making Problems Addressed: Closed fracture of left wrist, initial encounter: complicated acute illness or injury Amount and/or Complexity of Data Reviewed Radiology: ordered. Risk Prescription drug management. Final diagnoses: None Disposition: No disposition on file Chief complaint: Wrist pain TISHA Horn is a 38 y.o. male w who presents to the ED for wrist pain. Patient was playing in [employer] basketball game and went up for a jump and motion and was bumped falling onto his left side.He reached out with his left hand to break his fall and had wrist pain. He attempted to keep playing but was unable to because his wrist hurt immediately the first time that the ball was thrown to him. Denies any other injuries Patient's pertinent PMH, FH, SH were reviewed and edited as necessary. Nursing notes reviewed. A medical screening exam was performed. Physical Exam BP 123/70 Pulse 73 Temp 36.8 ??C (98.2 ??F) Resp 16 Ht (!) 195.6 cm (77) Wt 90.7 kg (200lb) SpO2 100% BMI 23.72 kg/m?? Physical Exam Swelling over snuffbox of left wrist Procedures Procedures documented in this encounter Plan of Treatment Scheduled Referrals Name Type Priority Associated Diagnoses Order Schedule AMB CONS/FOLLOW UP ORTHOPEDICS - [facility] Outpatient Referral Routine/Next Available Closed fracture of left wrist, initial encounter Expected: 12/02/2023 (Approximate), Expires: 11/24/2024 AMB CONS/FOLLOW UP ORTHOPEDICS - [facility] Outpatient Referral Routine/Next Available Closed fracture of left wrist, initial encounter Expected: 12/02/2023 (Approximate), Expires: 11/24/2024 documented as of this encounter Procedures Procedure Name Priority Date/Time Associated Diagnosis Comments CT WRIST LEFT WO CONTRAST STAT 11/25/2023 13:48 EDT XR FOREARM LEFT 2 VIEWS STAT 11/25/2023 11:35 EDT XR WRIST LEFT 3 OR MORE VIEWS STAT 11/25/2023 10:45 EDT XR HAND LEFT 3 OR MORE VIEWS STAT 11/25/2023 10:41 EDT documented in this encounter Results * CT WRIST LEFT WO CONTRAST (11/25/2023 13:48 EDT) Anatomical Region Laterality Modality Left Computed Tomogra phy 11/25/2023 15:1 6 EDT Impressions 11/25/2023 15:16 EDT FINDINGS/IMPRESSION: * ??There is a comminuted, mildly displaced fracture of the distal radius with intra-articular extension. * ??Small focus of sclerosis in the scaphoid adjacent to fracture site, likely a small bone island. * ??Mildly displaced fracture of the ulnar styloid. * ??No additional fractures seen in the wrist. * ??Mild soft tissue edema, skin and soft tissue calcifications.. I have personally reviewed the images and the above interpretation and agree with the findings. [id number] Narrative 11/25/2023 15:[address] WRIST LEFT WO CONTRAST ??11/25/2023 1:40 PM Signs and Symptoms/Comments: ?? wrist pain, intra-articular distal radius fracture with step-off; wrist pain, intra-articular distal radius fracture with step-off; Comparison: Same day left wrist radiograph Technique: Routine contiguous axial 0.[address] images of the left wrist were obtained without contrast. Sagittal and coronal 2-D reconstructions were generated and reviewed. No 3D imaging at time of final interpretation. Resulting Agency Comment [id number] Procedure Note Ruslan Park MD - 11/25/2023 CT WRIST LEFT WO CONTRAST 11/25/2023 1:40 PM Signs and Symptoms/Comments: wrist pain, intra-articular distal radius fracture with step-off; wristpain, intra-articular distal radius fracture with step-off; Comparison: Same day left wrist radiograph Technique: Routine contiguous axial 0.[address] images of the leftwrist were obtained without contrast. Sagittal and coronal 2-Dreconstructions were generated and reviewed. No 3D imaging at time offinal interpretation. IMPRESSION FINDINGS/IMPRESSION: * There is a comminuted, mildly displaced fracture of the distal radiuswith intra-articular extension. * Small focus of sclerosis in the scaphoid adjacent to fracture site,likely a small bone island. * Mildly displaced fracture of the ulnar styloid. * No additional fractures seen in the wrist. * Mild soft tissue edema, skin and soft tissue calcifications.. I have personally reviewed the images and the above interpretation andagree with the findings. [id number] Peter Almanzar MD IMG CT ORDERABLES * XR FOREARM LEFT 2 VIEWS (11/25/2023 11:35 EDT) Anatomical Region Laterality Modality Upper Extremities Left Computed Radio graphy 11/25/2023 11:3 8 EDT Impressions 11/25/2023 11:38 EDT * ??No additional fractures identified in the forearm. [id number] Narrative 11/25/2023 11:38 EDT EXAM/TECHNIQUE: 11/25/2023 11:31 AM ??XR FOREARM LEFT 2 VIEWS 2 views ?? HISTORY: ??arm pain, distal radius fracture; COMPARISON: No pertinent comparison available. FINDINGS: Soft tissues: The visualized soft tissues are normal. Bones: Intra-articular distal radial metaphyseal fracture and ulnar styloid fracture are again visualized. No additional fractures identified. Alignment is anatomic at the elbow joint. No evidence of elbow joint effusion. Resulting Agency Comment [id number] Procedure Note Quinn Whitt MD - 11/25/2023 EXAM/TECHNIQUE: 11/25/2023 11:31 AM XR FOREARM LEFT 2 VIEWS 2 views HISTORY: arm pain, distal radius fracture; COMPARISON: No pertinent comparison available. FINDINGS: Soft tissues: The visualized soft tissues are normal. Bones: Intra-articular distal radial metaphyseal fracture and ulnarstyloid fracture are again visualized. No additional fractures identified.Alignment is anatomic at the elbow joint. No evidence of elbow jointeffusion. IMPRESSION * No additional fractures identified in the forearm. [id number] Peter LARSON DIAGNOSTIC IMAGI NG ORDERABLES * XR WRIST LEFT 3 OR MORE VIEWS (11/25/2023 10:45 EDT) Anatomical Region Laterality Modality Upper Extremities Left Computed Radio graphy 11/25/2023 10:5 2 EDT Impressions 11/25/2023 10:52 EDT * ??Intra-articular mildly displaced distal radial and ulnar styloid fractures. [id number] Narrative 11/25/2023 10:52 EDT EXAM/TECHNIQUE: 11/25/2023 10:27 AM ??XR HAND LEFT 3 OR MORE VIEWS, XR WRIST LEFT 3 OR MORE VIEWS 3 views ?? HISTORY: ??pain after fall playing basketball; COMPARISON: No pertinent comparison available. FINDINGS: Soft tissues: Soft tissue swelling over the wrist.. Bones: There is an intra-articular minimally depressed fracture of the distal radial metaphysis. There is mildly displaced fracture of the base of the ulnar styloid. Resulting Agency Comment [id number] Procedure Note Quinn Whitt MD - 11/25/2023 EXAM/TECHNIQUE: 11/25/2023 10:27 AM XR HAND LEFT 3 OR MORE VIEWS, XR WRISTLEFT 3 OR MORE VIEWS 3 views HISTORY: pain after fall playing basketball; COMPARISON: No pertinent comparison available. FINDINGS: Soft tissues: Soft tissue swelling over the wrist.. Bones: There is an intra-articular minimally depressed fracture of thedistal radial metaphysis. There is mildly displaced fracture of the baseof the ulnar styloid. IMPRESSION * Intra-articular mildly displaced distal radial and ulnar styloidfractures. [id number] Gm LARSON DIAGNOSTIC IMAG ING ORDERABLES * XR HAND LEFT 3 OR MORE VIEWS (11/25/2023 10:41 EDT) Anatomical Region Laterality Modality Upper Extremities Left Computed Radio graphy 11/25/2023 10:5 2 EDT Impressions 11/25/2023 10:52 EDT * ??Intra-articular mildly displaced distal radial and ulnar styloid fractures. [id number] Narrative 11/25/2023 10:52 EDT EXAM/TECHNIQUE: 11/25/2023 10:27 AM ??XR HAND LEFT 3 OR MORE VIEWS, XR WRIST LEFT 3 OR MORE VIEWS 3 views ?? HISTORY: ??pain after fall playing basketball; COMPARISON: No pertinent comparison available. FINDINGS: Soft tissues: Soft tissue swelling over the wrist.. Bones: There is an intra-articular minimally depressed fracture of the distal radial metaphysis. There is mildly displaced fracture of the base of the ulnar styloid. Resulting Agency Comment [id number] Procedure Note Quinn Whitt MD - 11/25/2023 EXAM/TECHNIQUE: 11/25/2023 10:27 AM XR HAND LEFT 3 OR MORE VIEWS, XR WRISTLEFT 3 OR MORE VIEWS 3 views HISTORY: pain after fall playing basketball; COMPARISON: No pertinent comparison available. FINDINGS: Soft tissues: Soft tissue swelling over the wrist.. Bones: There is an intra-articular minimally depressed fracture of thedistal radial metaphysis. There is mildly displaced fracture of the baseof the ulnar styloid. IMPRESSION * Intra-articular mildly displaced distal radial and ulnar styloidfractures. [id number] Gm Freed MD IMG DIAGNOSTIC IMAG ING ORDERABLES documented in this encounter Visit Diagnoses Diagnosis Closed fracture of left wrist, initial encounter- Primary documented in this encounter Administered Medications Inactive Administered Medications - up to 3 most recent administrations Medication Order MAR Action Action Date Dose Rate Site oxyCODONE (ROXICODONE) immediate release tablet 10 mg 10 mg, oral, NOW X1, 1 dose, On 11/25/23 at 1230, STAT Given 11/25/2023 12:34 EDT 10 mg documented in this encounter Active and Recently Administered Medications Times are shown in EDT. Scheduled Medication Order 11/23/2023 11/24/2023 11/25/2023 oxyCODONE (ROXICODONE) immediate release tablet 10 mg (COMPLETED) 10 mg, oral, NOW X1, 1 dose, On 11/25/23 at 1230, STAT 1234 (Given - Provid er: Rose Mary Elizabeth RN) documented in this encounter Orders Medications Ordered That Dwain ht Not Have Been Administered Count Last Ordered Date First Ordered Date oxyCODONE (ROXICODONE) immed iate release tablet 10 mg 1 11/25/2023 documented in this encounter Care Teams Sugar Refiner Relationship Specialty Start Date End Date Sharri Rosario FNP [address] [place] [address] [address] [place] [address] PCP - General Family Medicine - Primary Care 11/25/23 documented as of this encounter
--- OUTSIDE RECORDS SUMMARY | 2024-02-21 12:24 | XMS_ITS | Encounter Summary ---
Author Organization [facility] Address [address] [place] [address] Care Team Providers Care Bank Vault Clerk Name Role Phone Unavailable Primary Care Provider Unavailabl e Reason for Visit * Reason Onset Date Comments Other 04/20/[address] Encounter Details Date Type Department Care Team (Late st Contact Info) Description 04/20/2020 Telephone [facility] - [facility] Testing Department [address] [place] [address] Carmen Sterling RN Other (covid19 call center) Social History Tobacco Use Types Packs/Day Years Used Date Smoking Tobacco: Never Assessed Interpersonal Safety Answer Date Record ed Physically Hurt Never 04/20/2020 Verbally Threaten Not on file 04/20/2020 Sex and Gender Information Value Date Recorded Sex Assigned at Not on file Gender Identity Male 11/25/2023 10:46 EDT Sexual Orientation Not on file documented as of this encounter Miscellaneous Notes * Telephone Encounter - Henrique Paredes - 04/21/2020 0914 EST ..C-19 screening recommended by provider. Routed for testing ordering. Vehicle: [employer] [id number] Cell #: [phone] Spoke to patient and verbally gave instructions for Testing Facility. Patient is instructed to be there at 10:30 am sharp. * Telephone Encounter - Lolis Tovar - 04/20/2020 1151 EST Tried calling patient but he has a vm that isn't set up yet * Telephone Encounter - Carmen Sterling RN - 04/20/2020 2379 EST [phone] This patient is calling the [facility] [place] with concern for COVID-19. The patient has had achiness, congestion and fever for 2 days. COVID-19 testing is indicated according to current [facility] algorithm. The patient has not been previously tested for Covid-19. 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 Patient is not immunocompromised. The patient is not a resident of a residential or assisted living facility. (If patient is, home health will facilitate testing once ordered). Patient was not offered a telehealth visit with their PCP or Express Care provider to further discuss symptoms This patient is currently stable, and was advised to go to the ER or call 911 with any worsening symptoms. Self care and self isolation reviewed with this patient. documented in this encounter Plan of Treatment Not on file documented as of this encounter Visit Diagnoses Diagnosis Encounter for screening laboratory testing for COVID-19 virus- Primary documented in this encounter
--- OUTSIDE RECORDS SUMMARY | 2024-02-21 12:24 | XMS_ITS | Encounter Summary ---
[facility] [place] [address] Care Team Providers Care Kosher Dietary Service Manager Name Role Phone Sharri Rosario APRN Primary Care Provider [phone] Reason for Visit * Reason Onset Date Comments Other 11/09/2023 Encounter Details Date Type Department Care Team (Late st Contact Info) Description 11/09/2023 Telephone [facility] Center at [facility] [address] [place] [address] Gregoria Hsieh APRN [facility] [place] [address] Other Social History Tobacco Use Types Packs/Day Years [...] encounter Miscellaneous Notes * Telephone Encounter - Shanti Morgan - 11/09/2023 10:59 AM EDT Message: Patient called and stated they were not able to complete the first of two nights for theirat home study. Patient stated they completed last night. They are asking if the should return the equipment today, or complete tonight and mail the equipment back tomorrow (Sunday). the patient Ask caller their first and last name and relationship to the patient: Roni Horn Best time to call back: any Ok to leave a message: Ok to send my- message: Offered Appointment: n/a MA/Nurse/[place] contacted via: Message: X Call: Pager: documented in this encounter Plan of Treatment Upcoming Encounters Date Type Department Care Team (Late st Contact Info) Description 02/29/2024 7:30 PM EDT Procedure visit Sleep Center at [facility] [address] [place] [address] 04/11/2024 1:00 PM EST Office Visit Cardiology at [address] [address] Gerardo Lobo MD [facility] [address] documented as of this encounter Visit Diagnoses Not on filedocumented in this encounter Care Teams Kosher Dietary Service Manager Relationship Specialty Start Date End Date Sharri Rosario APRN [address] [place] [address] PCP - General Family Medicine 06/01/22 documented as of this encounter
--- OUTSIDE RECORDS SUMMARY | 2024-02-21 12:24 | XMS_ITS | Clinical Summary ---
Author Organization [facility] Address [address] [place] [address] Care Team Providers Care Stamping Operator Name Role Phone Sharri Rosario ZANE Primary Care Provider [phone] Allergies Active Allergy Reactions Criticality Noted Date Comments Codeine 11/25/2023 Stomach pain Encounters Date Type Department Care Team Description 11/27/2023 Telephone [facility] Hand & Upper Extremity Program - Elisha [facility] Elisha [place], [place] [id number] Ronal Mays MD Surgery Cancellation 11/25/2023 10:16 EDT - 11/25/2023 15:38 EDT Emergency [facility] Emergency Department - [address] [id number] Gm Freed MD Closed fracture of left wrist, initial encounter (Primary Dx) Discharge Disposition: Home or Self Care from Last 3 Months Social History Tobacco Use Types Packs/Day Years Used Date Smoking Tobacco: Never Assessed Interpersonal Safety Answer Date Record ed Physically Hurt Never 04/20/2020 Verbally Threaten Not on file 04/20/2020 Sex and Gender Information Value Date Recorded Sex Assigned at Not on file Gender Identity Male 11/25/2023 10:46 EDT Sexual Orientation Not on file Last Filed [...] Body Mass Index 23.72 11/25/2023 0957 EDT Plan of Treatment Health Maintenance Due Date Last Done Comments Hepatitis B Vaccine (1 of 3 - 19+ 3-dose series) 11/17 COVID-19 Vaccine (2022- season) 2022 Hepatitis C Screen Completed 11/10/2020 Procedures Procedure Name Priority Date/Time Associated Diagnosis Comments CT WRIST LEFT WO CONTRAST STAT 11/25/2023 13:48 EDT XR FOREARM LEFT 2 VIEWS STAT 11/25/2023 11:35 EDT XR WRIST LEFT 3 OR MORE VIEWS STAT 11/25/2023 10:45 EDT XR HAND LEFT 3 OR MORE VIEWS STAT 11/25/2023 10:41 EDT HEPATITIS C AB W REFLEX TO HCV RNA BY PCR Routine 11/10/2020 8:05 EDT from Last 3 Months or Most Recently Relevant to Health Maintenance Results * CT WRIST LEFT WO CONTRAST [...] above interpretation and agree with the findings. [id number] Narrative 11/25/2023 15:[address] WRIST LEFT [...] time of final interpretation. Resulting Agency Comment [id number] Procedure Note Ruslan Park MD - 11/25/2023 [...] the above interpretation andagree with the findings. [id number] Peter Vigil MD IMG CT ORDERABLES * XR FOREARM LEFT 2 VIEWS (11/25/2023 11:35 EDT) Anatomical Region Laterality Modality Upper Extremities Left Computed Radio graphy 11/25/2023 11:3 8 EDT Impressions 11/25/2023 11:38 EDT * ??No additional fractures identified in the forearm. [id number] Narrative 11/25/2023 11:38 EDT EXAM/TECHNIQUE: 11/25/2023 11:31 [...] of elbow joint effusion. Resulting Agency Comment [id number] Procedure Note Quinn Whitt MD - 11/25/2023 [...] No additional fractures identified in the forearm. [id number] Peter Vigil MD IMG DIAGNOSTIC IMAGI NG ORDERABLES * XR WRIST LEFT 3 OR MORE VIEWS (11/25/2023 10:45 EDT) Anatomical Region Laterality Modality Upper Extremities Left Computed Radio graphy 11/25/2023 10:5 2 EDT Impressions 11/25/2023 10:52 EDT * ??Intra-articular mildly displaced distal radial and ulnar styloid fractures. [id number] Narrative 11/25/2023 10:52 EDT EXAM/TECHNIQUE: 11/25/2023 10:27 [...] of the ulnar styloid. Resulting Agency Comment [id number] Procedure Note Quinn Whitt MD - 11/25/2023 [...] mildly displaced distal radial and ulnar styloidfractures. [id number] Gm Freed MD [facility] ING ORDERABLES * XR HAND LEFT 3 OR MORE VIEWS (11/25/2023 10:41 EDT) Anatomical Region Laterality Modality Upper Extremities Left Computed Radio graphy 11/25/2023 10:5 2 EDT Impressions 11/25/2023 10:52 EDT * ??Intra-articular mildly displaced distal radial and ulnar styloid fractures. [id number] Narrative 11/25/2023 10:52 EDT EXAM/TECHNIQUE: 11/25/2023 10:27 [...] of the ulnar styloid. Resulting Agency Comment [id number] Procedure Note Quinn Whitt MD - 11/25/2023 [...] mildly displaced distal radial and ulnar styloidfractures. [id number] Gm [facility] IMAG ING ORDERABLES * HEPATITIS C AB W REFLEX TO HCV RNA BY PCR (11/10/2020 8:05 EDT) Hep C Antibody Negative Negative 11/11/2020 10:33 EDT [facility] Blood VENOUS BLOOD / Unknown 11/10/2020 8:05 EDT 11/10/2020 20:48 EDT Provider Outr Resulting Lab CHEMISTRY & BLOOD GAS ORDERABLES [facility] [address] [place] [address] from Last 3 Months or Most Recently Relevant to Health Maintenance Care Teams Stamping Operator Relationship Specialty Start Date End Date Sharri Rosario FNP [address] [phone] PCP - General Family Medicine - Primary Care 11/25/23
--- OUTSIDE RECORDS SUMMARY | 2024-02-21 12:24 | XMS_ITS | Encounter Summary ---
Author Organization [facility] [place] [address] Care Team Providers Care Curam Developer Name Role Phone Sharri Rosario APRN Primary Care Provider [phone] Encounter Details Date Type Department Care Team (Late st Contact Info) Description 11/25/2023 12:05 AM EDT Ancillary Procedure Radiology Library at [facility] [place] [phone] Sharri Rosario APRN [address] [place], [place] [address] Social History Tobacco Use Types Packs/Day Years [...] on file documented as of this encounter Plan of Treatment Upcoming Encounters Date Type Department Care Team (Late st Contact Info) Description 02/29/2024 7:30 PM EDT Procedure visit Sleep Center at [facility] [address] [place] [address] 04/11/2024 1:00 PM EST Office Visit Cardiology at [address] [place] [phone] Gerardo Lobo MD [facility] [place] [address] documented as of this encounter Procedures Procedure Name Priority Date/Time Associated Diagnosis Comments FILM LIBRARY STORAGE ONLY DX UPPER EXTREMITY Routine 11/25/2023 12:05 AM EDT documented in this encounter Results * Film Library- Storage Only DX Upper Extremity (11/25/2023 12:05 AM EDT) Narrative JUDI - 11/27/2023 12:11 PM EDT This exam is auto-finalizing. It's purpose is for storage only. Sharri Rosario APRN IMAnam FILM LIBRARY ORD ERABLES [place], [place] documented in this encounter Visit Diagnoses Not on filedocumented in this encounter Care Teams Curam Developer Relationship Specialty Start Date End Date Sharri Rosario APRN [address] [place] [address] PCP - General Family Medicine 06/01/22 documented as of this encounter
--- OUTSIDE RECORDS SUMMARY | 2024-02-21 12:24 | XMS_ITS | Encounter Summary ---
Author Organization [facility] Address [facility] [place] [address] Care Team Providers Care Editorial Assistant Name Role Phone Sharri Rosario APRN Primary Care Provider [phone] Encounter Details Date Type Department Care Team (Latest Contact Info) Description 11/07/2023 Travel Social History Tobacco Use Types Packs/Day Years [...] PM EDT Procedure visit Sleep Center at [facility] [address] [place] [address] 04/11/2024 1:00 PM EST Office Visit Cardiology at [address] [address] Gerardo Lobo MD [facility] [address] documented as of this encounter Visit Diagnoses Not on filedocumented in this encounter Care Teams Editorial Assistant Relationship Specialty Start Date End Date Sharri Rosario APRN [address] [place] [address] PCP - General Family Medicine 06/01/22 documented as of this encounter
--- OUTSIDE RECORDS SUMMARY | 2024-02-21 12:24 | XMS_ITS | Encounter Summary ---
Author Organization [facility] Address [facility] [place] [address] Care Team Providers Care Mixed Crop And Livestock Farm Worker Name Role Phone Sharri Rosario APRN Primary Care Provider [phone] Reason for Visit * Reason Onset Date Comments Post Procedure Call 07/19/2023 Encounter Details Date Type Department Care Team (Late st Contact Info) Description 07/19/2023 Telephone Cardiology at [address] [phone] Abel Benson MD [facility] [place] [address] Post Procedure Call Social History Tobacco Use Types Packs/Day Years [...] encounter Miscellaneous Notes * Telephone Encounter - Abel Benson MD - 07/19/2023 9:36 AM EDT I spoke to Roni by telephone this morning in follow-up from his pulsed field left atrial pulmonaryvein isolation procedure on 07/16/23 after which he experienced some intermittent, somewhat positional and/or respirophasic RUQ /diaphragmatic pain or spasm. Discussion with Anesthesia staff led to consensus of R hemidiaphragm discomfort resulting from strong contractions related to right phrenic stimulation. There is no evidence of phrenic nerve injury (normal diaphragm excursion with respirations to percussion and flat and equal hemidiaphragms of CXR prior to discharge). Shoulder area pain felt secondary to referred pain. Yesterday, we recommended pt take ibuprofen (with food and water) and Tylenol around the clock to help manage discomfort. Tylenol should be a total of 1 gram (1,000 mg) every 8 hrs and ibuprofen 600 mg every 8 hours. These medications can be taken simultaneously or staggered. This morning (07/19/23) Roni reports to me feeling much better and that his symptoms continue to jaja with time and the recommend treatment above. He had no problem sleeping overnight. I encouraged him to wean the ibuprofen first as his symptoms continue to jaja, in order to minimize the increased risk of bleeding of NSAIDS. Pt indicated understanding and agreement with the plan and expressed gratitude for the call. Abel Benson MD, PhD, [facility] Cardiac Electrophysiology 07/19/2023 10:57 AM documented in this encounter Plan of Treatment Upcoming Encounters Date Type Department Care Team (Late st Contact Info) Description 02/29/2024 7:30 PM EDT Procedure visit Sleep Center at [place] [address] [place] [address] 04/11/2024 1:00 PM EST Office Visit Cardiology at [address] [address] Gerardo Lobo MD [facility] [place] [address] documented as of this encounter Visit Diagnoses Not on filedocumented in this encounter Care Teams Mixed Crop And Livestock Farm Worker Relationship Specialty Start Date End Date Sharri Rosario APRN [address] [place] [address] PCP - General Family Medicine 06/01/22 documented as of this encounter
--- OUTSIDE RECORDS SUMMARY | 2024-02-21 12:24 | XMS_ITS | Encounter Summary ---
Author Organization [facility] Address [facility] [place] [address] Care Team Providers Care Regional Coordinator Name Role Phone Sharri Rosairo APRN Primary Care Provider [phone] Reason for Referral * Diagnostic Test (Routine) - Closed Specialty Diagnoses / Procedures Referred By Contac t Referred To Contact Sleep Center Diagnoses Paroxysmal atrial fibrillation Non-restorative sleep Procedures Home Sleep Study Gregoria Hsieh APRN [facility] [address] [facility] Sleep Medicine [address] [place] [address] Referral ID Status Reason Start Date Expiration Date V isits Requested Visits Authorized [id number] Closed Specialty Service Requested 09/12/2023 09/11/2024 1 1 Reason for Visit * Consultation (Routine) - Closed Specialty Diagnoses / Procedures Referred By Contac t Referred To Contact Sleep Center Diagnoses Paroxysmal atrial fibrillation Vik Lane MD [place] [address] Unknown None Referral ID Status Reason Start Date Expiration Date V isits Requested Visits Authorized [id number] Closed Consult, Test & Treat Non PCP 03/29/2023 09/25/2023 1 1 Encounter Details Date Type Department Care Team (Latest Contact Info) Description 09/12/2023 12:30 PM EDT TH Visit (TeleHealth) Sleep Center at [facility] [address] [place] [address] Gregoria Hsieh APRN [facility] [address] Non-restorative sleep (Primary Dx); Paroxysmal atrial fibrillation; Anxiety; Depression, unspecified depression type Social History Tobacco Use Types Packs/Day Years [...] Sign Reading Time Taken Comments Blood Pressure - - Pulse - - Temperature - - Respiratory Rate - - Oxygen Saturation - - Inhaled Oxygen Concentration - - Weight 88.9 kg (196 lb) 09/12/2023 12:54 PM EDT Height 195.6 cm (6' 5) 09/12/2023 12:54 PM EDT Body Mass Index 23.24 09/12/2023 12:54 PM EDT documented in this encounter Patient Instructions * Patient Instructions* Gregoria Hsieh APRN - 09/12/2023 12:30 PM EDT 1. HST Fed ex 2. Role of weight loss reviewed 3. Safe driving precautions extensively reviewed with the patient 4. Sleep apnea facts and figures handout reviewed 5. F/U 6 weeks after starting PAP therapy if found to have PRINCE. documented in this encounter Progress Notes * Gregoria Hsieh APRN - 09/12/2023 12:30 PM EDT Sleep Medicine Consultation Note CC:Roni Horn is a 37 y.o. male seen via telehealth from [place] at the request of Vik Lane MD for advice regarding suspected sleep disorder. HPI: Patient presents for visit regarding referral from cardiology for suspected sleep disorder due to Afib Diagnosis. Recent ablation procedure no afib episodes since. No snoring or witnessed pauses in breathing, no daytime sleepiness, Not typically napping or dozing unless sleep disruption. Current medical history Afib, anxiety Sleep Pattern: Bed/Recliner/Wedge: bed, 1-2 pillow, preferred position lateral to supine bed partner Bedtime: 10:30 p Lights out: getting into bed Latency: not long Awakenings: at times Reason: different reasons Duration: quickly Wake time: 7 am Respiratory: Snoring: none Observed Apneas: none Nocturnal Gasping: no Nasal Obstruction: chronic sinus issues Mouth Breathing: no Dry Mouth: no Daytime Symptoms: [place]: Patient-reported last 4 scores: 09/12/2023 12:17 PM [facility]- Sleep Center [place] Sleep 6 (Low Risk) Insomnia Severity Index 8 (Subthreshold insomnia) Upon Awakening: wake tried not rested Naps: not typically Involuntary Dozing: not typically Sleepy Driving: no drowsienss with driving Close calls related to sleepiness Accidents related to sleepiness Other Associates Sleep Symptoms: Parasomnias: Sleep Walking: no Dream Enactment: no Motor: RLS: yes with back pain PLMS: no Narcolepsy: Hallucinations: no Paralysis: no Cataplexy: deferred Medications: Current Outpatient Medications: buPROPion SR (Wellbutrin SR) 100 mg SR 12 hr tablet, 1 tab every morning for 1 week and then D/C unless one tab a day proves beneficial. On a separate Rx will eprescribe bupropion 150 mg XL., Disp: 7tablet, Rfl: 4 buPROPion XL (Wellbutrin XL) 150 mg XL 24 hr tablet, Take 1 tablet by mouth every morning. He will begin 150 mg XL after trying 100 mg SR for a week. However if 100 mg SR provides benefit he will remail on 100 mg SR and not take 150 mg XL., Disp: 30 tablet, Rfl: 2 LORazepam (Ativan) 0.5 mg tablet, 1 tab TID PRN., Disp: 60 tablet, Rfl: 2 apixaban (Eliquis) 5 mg tablet, Take 1 tablet by mouth 2 times daily for 90 days., Disp: , Rfl: traZODone (Desyrel) 50 mg tablet, 1/2 to 2 tabs HS as directed (I provided him a specific titrationschedule.Please call our office if questions.) (Patient not taking: Reported on 09/12/2023), Disp: 30 tablet, Rfl: 2 Past Medical History: Past Medical History: Diagnosis Date A-fib Anxiety disorder Back pain Social History: Living situation: lives with and 2 year old child 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 Alcohol: none Smoking: former Caffeine: 2 cups of coffee in am Other drugs: none Family History: Family history of sleep disorders: unknown family history of PRINCE ROS: CON: weight change: stable ENT: nasal obstruction: chronic sinus issues PUL: RUIZ: with Afib, currently with rib injury CV: chest pain: no Palpitations: current Afib stable LE edema: no GI: GERD: not currently : Nocturia: 1-2 x MSK: Pain:back NEURO: sleep related headaches: no Cognitive changes: yes ALL: not sure ENDO: no thyroid disease or diabetes PSY: Depression: yes, stable Anxiety: yes, stable PE: Ht 195.6 cm (6' 5) Wt 88.9 kg (196 lb) BMI 23.24 kg/m?? General: NAD Eyes: conjunctiva clear ENT: oropharynx MP: visual crowding Mandibular structure and position: NECK: Submental fat present: Neck Size: 17in LUNGS: CV: SKIN: NEURO: PSYCH: Alert and appropriate: yes Oriented to person, place and time: yes Affect: full range Mood: good Judgement and insight: intact Assessment: Roni Horn is a 37 y.o. male with a history of non restorative sleep, A Fib, anxiety and depression Has the following physical features visual crowding posterior oropharynx associated with PRINCE .The history and symptoms are suspicious for obstructive sleep apnea. The diagnosis of obstructive sleep apnea was reviewed in detail with the patient at this time. Potential consequences of untreatedobstructive sleep apnea reviewed, including increased cardiovascular risk. Treatment options reviewed in detail including PAP therapy, oral appliances. Testing for PRINCE reviewed. HST ordered. Patient verbalized understanding if HST is non diagnostic an in lab sleep test is recommended. Patient confirms that study results can be released to their my account or will be communicated by mailed letter. Questions regarding diagnosis and management answered at this time. Recommendations: 1. HST Fed ex 2. Role of weight loss reviewed 3. Safe driving precautions extensively reviewed with the patient 4. Sleep apnea facts and figures handout reviewed 5. F/U 6 weeks after starting PAP therapy if found to have PRINCE. Plan discussed with the patient and they are in agreement. GREGORIA HSIEH APRN Cc: Vik Lane MD documented in this encounter Plan of Treatment Upcoming Encounters Date Type Department Care Team (Late st Contact Info) Description 02/29/2024 7:30 PM EDT Procedure visit Sleep Center at [facility] [address] [place] [address] 04/11/2024 1:00 PM EST Office Visit Cardiology at [address] [address] Gerardo Lobo MD [facility] [place] [address] Scheduled Orders Name Type Priority Associated Diagnoses Orde r Schedule Home Sleep Study Sleep Center Routine Paroxysmal atrial fibrillation Non-restorative sleep Expected: 09/12/2023, Expires: 09/11/2024 documented as of this encounter Visit Diagnoses Diagnosis Non-restorative sleep- Primary Other sleep disturbances Paroxysmal atrial fibrillation Atrial fibrillation Anxiety Anxiety state, unspecified Depression, unspecified depression type documented in this encounter Care Teams Regional Coordinator Relationship Specialty Start Date End Date Sharri Rosario APRN [address] [place] [address] PCP - General Family Medicine 06/01/22 documented as of this encounter
--- OUTSIDE RECORDS SUMMARY | 2024-02-21 12:24 | XMS_ITS | Encounter Summary ---
Author Organization [facility] Address [address] [place] [address] Care Team Providers Care Cutter Grind Tool Technician Name Role Phone Sharri Rosario ZANE Primary Care Provider [phone] Encounter Details Date Type Department Care Team (Late st Contact Info) Description 04/21/2020 Lab Requisition [facility] Pathology & Laboratory Medicine - [address] [address] Outr Resulting Lab, Provider Social History Tobacco Use Types Packs/Day Years Used Date Smoking Tobacco: Never Assessed Interpersonal Safety Answer Date Record ed Physically Hurt Never 04/20/2020 Verbally Threaten Not on file 04/20/2020 Sex and Gender Information Value Date Recorded Sex Assigned at Not on file Gender Identity Male 11/25/2023 10:46 EDT Sexual Orientation Not on file documented as of this encounter Plan of Treatment Not on file documented as of this encounter Procedures Procedure Name Priority Date/Time Associated Diagnosis Comments ZZCOVID-19 TEST [facility] PCR Today 04/21/2020 10:52 EST COVID-19 TESTING Routine 04/21/2020 10:5 2 EST documented in this encounter Results * COVID-19 TEST [facility] PCR (04/21/2020 10:52 EST) Swab ENTIRE NASOPHARYNX / Unknown 04/21/2020 10:52 EST 04/21/2020 15:32 EST Provider Outr Resulting Lab MICROBIOLOGY - GENERAL ORDERABLES [facility] [address] [place] [address] * COVID-19 TESTING (04/21/2020 10:52 EST) COVID-19 rt-PCR Result Negative Negative 04/22/2020 14:33 EST [facility] Comment: Negative results do not preclude 2019-nCoV infection and should not be used as the sole basis for treatment or other patient management decisions. Negative results must be combined with clinical observations, patient history, and epidemiological information. This test was developed and its performance characteristics determined by [facility]. It has not been cleared or approved by the US Food and Drug Administration. FDA does not require this test to go through premarket FDA review. This test is used for clinical purposes. It should not be regarded as investigational or for research. This laboratory is certified under the Clinical Laboratory Improvement Amendments (CLIA) as qualified to perform high complexity clinical laboratory testing. This test is based on the CDC COVID-19 Emergency Use Authorization (EUA) assay, with minor modification as defined by the FDA Performed on the [employer] 7 Flex. Performing Lab [employer] 7 [facility] Lab 04/22/2020 14:33 EST [facility] Swab 04/21/2020 10:5 2 EST 04/21/2020 15:32 EST Provider Outr Resulting Lab MICROBIOLOGY - GENERAL ORDERABLES Performing Organization Address [facility] Co de Phone Number [facility] [address] [place] [address] documented in this encounter Visit Diagnoses Not on filedocumented in this encounter Care Teams Cutter Grind Tool Technician Relationship Specialty Start Date End Date Sharri Rosario FNP [address] [facility] [address] [place] [address] PCP - General Family Medicine - Primary Care 11/25/23 documented as of this encounter
--- OUTSIDE RECORDS SUMMARY | 2024-02-21 12:24 | XMS_ITS | Encounter Summary ---
Author Organization [facility] [place] [address] Care Team Providers Care Armed Security Guard Name Role Phone Sharri Rosario APRN Primary Care Provider [phone] Encounter Details Date Type Department Care Team (Late st Contact Info) Description 11/25/2023 Ancillary Procedure Radiology Library at [facility] [place] [address] Sharri Rosario APRN [address] [place] [address] Social History Tobacco Use Types Packs/Day Years [...] PM EDT Procedure visit Sleep Center at [place] [address] [place] [address] 04/11/2024 1:00 PM EST Office Visit Cardiology at [address] [place] [address] Gerardo Lobo MD [facility] [place] [address] documented as of this encounter Procedures Procedure Name Priority Date/Time Associated Diagnosis Comments FILM LIBRARY STORAGE ONLY DX HAND Routine 11/25/2023 12:00 AM EDT documented in this encounter Results * Film Library- Storage Only DX Hand (11/25/2023 12:00 AM EDT) Narrative [facility] - 11/27/2023 12:11 PM EDT This exam is auto-finalizing. It's purpose is for storage only. Sharri Rosario APRN IMAnam FILM LIBRARY ORD ERABLES Performing Organization Address City/State/[facility] Co de Phone Number [place], [place] documented in this encounter Visit Diagnoses Not on filedocumented in this encounter Care Teams Armed Security Guard Relationship Specialty Start Date End Date Sharri Rosario APRN [address] [place] [address] PCP - General Family Medicine 06/01/22 documented as of this encounter
--- OUTSIDE RECORDS SUMMARY | 2024-02-21 12:24 | XMS_ITS | Encounter Summary ---
Author Organization Formerly [facility] [place] [address] Care Team Providers Care Bleacher Lard Name Role Phone Sharri Rosario APRN Primary Care Provider [phone] Reason for Visit * Reason Onset Date Comments Post Procedure Call 07/25/2023 Encounter Details Date Type Department Care Team (Late st Contact Info) Description 07/25/2023 Notes Only Cardiology at [address] [phone] Jessica Cole, RN Post Procedure Call Social History Tobacco Use [...] as of this encounter Progress Notes * Jessica Cole RN - 07/25/2023 11:59 PM EDTSummary: Post Procedure Call: Farapulse Atrial Fibrillation Ablation EP RN Post-Procedure Note: Date of Follow Up Call: 07/25/2023 Spoke With: Patient Procedure Type (choose all that apply): Ablation Ablation Type (Choose all that apply): Atrial Fib Performing MD: Marcelino Date of Procedure: 07/16/2023 Date of Discharge: 07/17/2023 Follow Up EP Visit Scheduled?: No No Follow Up Visit Reason: Note sent to EP scheduleing department Intra or Post Procedure Event: Did any Intra or Post Procedure Events Occur?: No Medications at Hospital Discharge: Aspirin: No P2Y12 Inhibitor: No Other Antiplatelet: No Warfarin: No DOAC: Yes Other Anticoagulant: No Beta Neo (any): No Digoxin: No Diltiazem/Verapamil: No Amiodarone: No Dofetilide: No Dronedarone: No Flecainide: No Propafenone: No Sotalol: No PPI: No Other Antiarrhythmic: No Assessment: Access Site Assessment (Choose all that apply): None of the above UTI symptoms (Choose all that apply): None of the above Signs and Symptoms of Infection (Choose all that apply): None of the above Headaches: No Complaints of: (choose all that apply): None of the above Free Text Note: Patient Assessment: Getting better every day, PT for neck After procedure was able to take deep breath for first time in a while, but ntoices that stress & when HR goes up. Follow-up Recommendations for Providers: - s/p pulmonary vein isolation with pulsed wave ablation (electroporation) - Continue anticoagulation with apixaban for three months post procedure - Flecainide was discontinued. - Propranolol may be tapered off unless needed for anxiety or hypertension. - See below for wound care instructions and follow up Catheter Insertion Area Care - You may take a shower if you wish the morning after the procedure. Wash the area with soap and water. - Look for signs of infection over the next several days. - A little spot of blood at the catheter insertion area is not unusual. A bruise or a small lump under the skin is normal; they generally disappear in three or four days. In some cases you may develop a larger bruise that may appear to extend somewhat down your thigh; this is normal and will resolve, generally within 1-2 weeks. - Expect some mild tenderness over the area where the catheter was inserted. This should improve during the 24 to 48nhours after the procedure. - Take Tylenol if needed and contact your doctor if the discomfort worsens. Avoid higher-dose ibuprofen (greater than 400mg twice daily) due to increased bleeding risk while on blood thinners (does not include aspirin). Problems to Watch For If there is bright red blood flowing from the catheter insertion area STOP what you are doing and lie down. Hold pressure steadily on the area for fifteen minutes. Call for help. If the bleeding does not stop in fifteen minutes, call 911. If there is rapid swelling with a black and blue color at the catheter insertion area, there may be bleeding inside. Call your doctor if there is any increase in size. Check the insertion site for the next few days at home. Signs of infection are: Redness Swelling Yellow, white, green or brown, foul smelling drainage Increased soreness If you think there is an infection, take your temperature. Then call your doctor. The limb on the side where you had the catheter inserted should look and feel normal in its color, sensation and temperature. If your leg becomes cool, pale, blue or changing color with numbness and tingling, contact your doctor. If you feel faint or dizzy, lie down with your feet elevated. Have someone call the doctor. If you are alert, drink fluids. Activity - Do not bend over, strain or lift heavy objects for 48 hours after the procedure. - Do not participate in active sports for 1 week. - Avoid heavy lifting (greater than 10 pounds) for one week following your procedure. Additional discharge instructions: Pt advised to be vigilant for any of the following clinical findings (or anything else out of the ordinary): Bleeding, pain, or swelling at any sheath/catheter insertion site. Sometimes this may develop even days after discharge, and there may then be a need to examine this and alter the anticoagulation medications. It is good to be up and around after the ablation procedure, but heavy lifting and straingshould be avoided for the first 3-5 days. Chest discomfort. Inflammation in the form of pericarditis may result in chest pain, which is not uncommon after an ablation procedure for atrial fibrillation. It often may be position-dependent, or will be exacerbated by ventilatory movement. If the patient experiences chest discomfort, it should be medically evaluated to ascertain the significance, and to assess for more serious alternative considerations requiring urgent intervention. If it otherwise is pericarditis, it commonly responds well to anti-inflammatory medication. Atrial dysrhythmias (flutter, fibrillation, tachycardia). Post-procedure atrial dysrhythmias on thebasis of temporary inflammation are not uncommon, and are not necessarily indicative of an ineffective procedure... if the dysrhythmia is due to inflammtion, the dysrhythmias likely will cease as theinflammation resolves. The first 1-2 months are the most likely time during which this matter is rel evant. If the patient experiences dysrhythmias, the Cardiac Electrtophysiology Service should be contacted. Side effects of any new medications initiated at the [facility]. The patient should be aware and informed of any significant potential side effects that may be incurred as a result of being on new medication... Sudden weakness, sensory loss, altered behavior or speech. This might be a consequence of a cerbrovascular event (stroke or TIA). This requires urgent and immediate medical attention. Fever or sweats, significant malaise. Possibly a consequence of infection. This requires that the Cardiac Electrophysiology Service be contacted, or otherwise an urgent medical assessment should be obtained. Shortness of breath, increased exertional intolerance. A variety of pulmonary or cardiac processes could be responsible for this. This requires that the Cardiac Electrophysiology Service be contacted, or otherwise an urgent medical assessment should be obtained. Difficulty swallowing, or pain with swallowing. While remote, there nonetheless is a ablation procedural risk of injury to the esophagus; if these symptoms emerge, immediate medical evaluation is urged (with no oral intake pending medical evaluation). This is not an exhaustive list. If the patient experiences anything out of the ordinary post-procedure, he/she is encouraged to contact his/her physician or the Cardiac Electrophysiology Service ([phone]). documented in this encounter Plan of Treatment Upcoming Encounters Date Type Department Care Team (Late st Contact Info) Description 02/29/2024 7:30 PM EDT Procedure visit Sleep Center at [address] [address] 04/11/2024 1:00 PM EST Office Visit Cardiology at [address] [address] Gerardo Lobo MD [facility] [place] [address] documented as of this encounter Visit Diagnoses Not on filedocumented in this encounter Care Teams Bleacher Lard Relationship Specialty Start Date End Date Sharri Rosario APRN [address] [place] [address] PCP - General Family Medicine 06/01/22 documented as of this encounter
--- OUTSIDE RECORDS SUMMARY | 2024-02-21 12:24 | XMS_ITS | Encounter Summary ---
Author Organization [facility] [place] [address] Care Team Providers Care Reflow Operator Name Role Phone Sharri Rosario APRN Primary Care Provider [phone] Encounter Details Date Type Department Care Team (Late st Contact Info) Description 07/24/2023 Telephone Cardiology at [address] [phone] Sharla Gibbs RN Social History Tobacco Use Types Packs/Day Years [...] encounter Miscellaneous Notes * Telephone Encounter - Sharla Gibbs RN - 07/24/2023 11:19 AM EDT Patient called to discuss groin site healing and PT recommendations. Called pt back, groin site on right has minimal bruise that is circular and not spreading. Patient also describes round circular closure device. Explained that both are WNL post ablation. Questions answered regarding PT on AC. Explained that PT is welcomed and that neck mobility will beevaluated by therapist and therapy plan should be based on their recommendation. Explained that AC are fine to remain on for PT and that only invasive procedures require AC holding. States he has healed well post ablation and is looking forward to PT for his neck. Remains in NSR. Sharla Gibbs RN [facility] Cardiology documented in this encounter Plan of Treatment Upcoming Encounters Date Type Department Care Team (Late st Contact Info) Description 02/29/2024 7:30 PM EDT Procedure visit Sleep Center at [facility] [address] [place] [address] 04/11/2024 1:00 PM EST Office Visit Cardiology at [address] [phone] Gerardo Lobo MD [facility] [place] [address] documented as of this encounter Visit Diagnoses Not on filedocumented in this encounter Care Teams Reflow Operator Relationship Specialty Start Date End Date Sharri Rosario APRN [address] [place] [address] PCP - General Family Medicine 06/01/22 documented as of this encounter
--- OUTSIDE RECORDS SUMMARY | 2024-02-21 12:24 | XMS_ITS | Encounter Summary ---
Author Organization [facility] [place] [address] Care Team Providers Care Receptionist Secretary Name Role Phone Sharri Rosario APRN Primary Care Provider [phone] Reason for Referral * Diagnostic Test (Routine) - Authorized Specialty Diagnoses / Procedures Referred By Contac t Referred To Contact Sleep Center Diagnoses Paroxysmal atrial fibrillation Non-restorative sleep Anxiety Depression, unspecified depression type Procedures Sleep Study Diagnostic PSG / Split Night Gregoria Hsieh APRN [facility] [place] [address] [facility] Sleep Medicine [address] [place] [address] Referral ID Status Reason Start Date Expiration Date Visits Requested Visits Authorized [id number] Authorized Specialty Service Requested 11/22/2023 11/21/2024 1 1 Encounter Details Date Type Department Care Team (Late st Contact Info) Description 11/22/2023 Orders Only Sleep Center at [facility] [address] [place] [phone] Gregoria Hsieh APRN [facility] [address] Paroxysmal atrial fibrillation; Non-restorative sleep; Anxiety; Depression, unspecified depression type Social History [...] PM EDT Procedure visit Sleep Center at [facility] [address] [place] [address] 04/11/2024 1:00 PM EST Office Visit Cardiology at [address] [address] Gerardo Lobo MD [facility] [place] [address] Scheduled Orders Name Type Priority Associated Diagnoses Orde r Schedule Sleep Study Diagnostic PSG / Split Night Sleep Center Routine Paroxysmal atrial fibrillation Non-restorative sleep Anxiety Depression, unspecified depression type Expected: 11/22/2023, Expires: 11/20/2024 documented as of this encounter Visit Diagnoses Diagnosis Paroxysmal atrial fibrillation Atrial fibrillation Non-restorative sleep Other sleep disturbances Anxiety Anxiety state, unspecified Depression, unspecified depression type documented in this encounter Care Teams Receptionist Secretary Relationship Specialty Start Date End Date Sharri Rosario APRN [address] [place] [address] PCP - General Family Medicine 06/01/22 documented as of this encounter
--- OUTSIDE RECORDS SUMMARY | 2024-02-21 12:24 | XMS_ITS | Encounter Summary ---
Author Organization [facility] Address [address] [place] [address] Care Team Providers Care Review Specialist Name Role Phone AbrahamSharri ZANE Primary Care Provider [phone] Reason for Visit * Reason Onset Date Comments Surgery Cancellation 11/27/2023 Encounter Details Date Type Department Care Team (Late st Contact Info) Description 11/27/2023 Telephone [facility] Upper Extremity Program - [address] [address] Ronal Mays MD [address] [place] [address] Surgery Cancellation Social History Tobacco Use Types Packs/Day Years [...] encounter Miscellaneous Notes * Telephone Encounter - Gabriel Leigh - 11/27/2023 1144 EDT Reason for Call: Surgery Cancellation Summary: Patient will be going elsewhere that is a preferred network for their insurance and would like to cancel sx and any f/u associated. Appointment Offered? N/A Gabriel Leigh 11/27/2023 11:44 documented in this encounter Plan of Treatment Not on file documented as of this encounter Visit Diagnoses Not on filedocumented in this encounter Care Teams Review Specialist Relationship Specialty Start Date End Date Sharri Rosario FNP [address] [address] PCP - General Family Medicine - Primary Care 11/25/23 documented as of this encounter
--- OUTSIDE RECORDS SUMMARY | 2024-02-21 12:24 | XMS_ITS | Encounter Summary ---
Author Organization [facility] [place] [address] Care Team Providers Care Mental Health Specialist Name Role Phone Sharri Rosario APRN Primary Care Provider [phone] Reason for Referral * Diagnostic Test (Routine) - Closed Specialty Diagnoses / Procedures Referred By Contac t Referred To Contact Cardiology Diagnoses PAF (paroxysmal atrial fibrillation) History of radiofrequency ablation (RFA) for complex left atrial arrhythmia Dilated cardiomyopathy Procedures Echocardiogram Transthoracic Peter Jaramillo PA [facility] [place] [address] [facility] [place] [address] Referral ID Status Reason Start Date Expiration Date V isits Requested Visits Authorized [id number] Closed Specialty Service Requested 11/27/2023 11/26/2024 1 1 Reason for Visit * Diagnostic Test (Routine) - Closed Specialty Diagnoses / Procedures Referred By Contac t Referred To Contact Cardiology Diagnoses PAF (paroxysmal atrial fibrillation) History of radiofrequency ablation (RFA) for complex left atrial arrhythmia Dilated cardiomyopathy Procedures Echocardiogram Transthoracic Peter Jaramillo PA [facility] [place] [address] [facility] [place] [address] Referral ID Status Reason Start Date Expiration Date V isits Requested Visits Authorized [id number] Closed Specialty Service Requested 11/27/2023 11/26/2024 1 1 Encounter Details Date Type Department Care Team (Latest Contact Info) Description 11/27/2023 1:30 PM EDT - 11/27/2023 11:59 PM EDT Hospital Encounter Non-Invasive Cardiology Lab [facility] [place] [address] MD [facility] [place] [address] PAF (paroxysmal atrial fibrillation); History of radiofrequency ablation (RFA) for complex left atrial arrhythmia; Dilated cardiomyopathy Discharge Disposition: Home Social History Tobacco Use [...] Sig Dispensed Refills Start Date End Date LORazepam (Ativan) 0.5 mg tablet 1 tab TID PRN. 60 tablet 2 10/17/2023 LORazepam (Ativan) 0.5 mg tablet 1 tab TID PRN. 20 tablet 10/17/2023 traZODone (Desyrel) 50 mg tablet 1/2 to [...] mg XL. 30 tablet 2 08/31/2023 12/20/2023 documented as of this encounter Plan of Treatment Upcoming Encounters Date Type Department Care Team (Late st Contact Info) Description 02/29/2024 7:30 PM EDT Procedure visit Sleep Center at [facility] [address] [place] [address] 04/11/2024 1:00 PM EST Office Visit Cardiology at [address] [address] Gerardo Lobo MD [facility] [place] [address] documented as of this encounter Procedures Procedure Name Priority Date/Time Associated Diagnosis Comments ECHO COMPLETE Routine 11/27/2023 2:40 PM EDT PAF (paroxysmal atrial fibrillation) History of radiofrequency ablation (RFA) for complex left atrial arrhythmia Dilated cardiomyopathy documented in this encounter Results * ECHO COMPLETE (11/27/2023 2:40 PM EDT) [facility] EF [facility] Anatomical Region Laterality Modality Cardiac Other 11/27/2023 2:09 PM EDT Narrative 11/27/2023 5:26 PM EDT [address] [place] [address] ? Echocardiogram Report Name: MERYL HORN ?Study Date: 11/27/2023 02:09 PMBP: 136/76 mmHg ? Patient Location: : 1985 ? Height: 196 cm ? Account: [id number] Age: 38 yrs ? Weight: 89 kg Gender: Male ?BSA: 2.2 m2 Ordering Physician: DWAINE LANE Referring Physician: PETER JARAMILLO Performed By: Javan Bolivar RDCS Reason For Study: PAF (paroxysmal atrial fibrillation) Interpreting Fellow: Basilio Foy. Exam Location: [facility]. Interpretation Summary -Left ventricle is of normal [...] severe diastolic dysfunction no longer present Procedure Complete-48559. 3D - 84118. Satisfactory quality. There is normal sinus rhythm. [...] Note Rod Anderson MD - 11/27/2023 [address] [place] [address] Echocardiogram Report Name: MERYL HORN Study Date: 402:09 PMBP: 136/76 mmHg Patient Location: : 1985 Height: 196 cm Account: [id number] Age: 38 yrs Weight: 89 kg Gender: Male BSA: 2.2 m2 Ordering Physician: DWAINE LANE Referring Physician: PETER JARAMILLO Performed By: Javan Bolivar RDCS Reason For Study: PAF (paroxysmal atrial fibrillation) Interpreting Fellow: Basilio Foy. Exam Location: [facility]. Interpretation Summary -Left ventricle is of normal chamber size and wall thickness. Systolicfunction is normal with an ejection fraction of 69% and no wall motionabnormalities. -Right ventricle is of normal size and function. -There is mild bi-atrial dilation. -There is no hemodynamically significant valve disease. - Compared with previous study of 06/20/23, systolic function hasnormalized, severe diastolic dysfunction no longer present Procedure Complete-28598. 3D - 63694. Satisfactory quality. There is normal sinusrhythm. Left [...] Aneurysmal 15-16diffuse Dwaine Lane MD ECHO ORDERABLES documented in this encounter Visit Diagnoses Diagnosis PAF (paroxysmal atrial fibrillation) Atrial fibrillation History of radiofrequency ablation (RFA) for complex left atrial arrhythmia Dilated cardiomyopathy Other primary cardiomyopathies documented in this encounter Care Teams Mental Health Specialist Relationship Specialty Start Date End Date Sharri Rosario APRN [address] [place] [address] PCP - General Family Medicine 06/01/22 documented as of this encounter
--- OUTSIDE RECORDS SUMMARY | 2024-02-21 12:24 | XMS_ITS | Encounter Summary ---
Author Organization [facility] Address [facility] [place] [address] Care Team Providers Care Car Spotter Name Role Phone Sharri Rosario APRN Primary Care Provider [phone] Encounter Details Date Type Department Care Team (Latest Contact Info) Description 01/29/2024 Travel Social History Tobacco Use Types Packs/Day [...] PM EDT Procedure visit Sleep Center at [facility] [address] [place] [address] 04/11/2024 1:00 PM EST Office Visit Cardiology at [address] [address] Gerardo Lobo MD [facility] [place] [address] documented as of this encounter Visit Diagnoses Not on filedocumented in this encounter Care Teams Car Spotter Relationship Specialty Start Date End Date Sharri Rosario APRN [address] [place] [address] PCP - General Family Medicine 06/01/22 documented as of this encounter
--- OUTSIDE RECORDS SUMMARY | 2024-02-21 12:24 | XMS_ITS | Encounter Summary ---
Author Organization [facility] Address [facility] [place] [address] Care Team Providers Care Tc Operator Name Role Phone Sharri Rosario APRN Primary Care Provider [phone] Reason for Referral * Diagnostic Test (Routine) - Closed Specialty Diagnoses / Procedures Referred By Contac t Referred To Contact Cardiology Diagnoses PAF (paroxysmal atrial fibrillation) History of radiofrequency ablation (RFA) for complex left atrial arrhythmia Palpitations Procedures Ziopatch 48 Hrs-15 Days Peter Jaramillo PA [facility] [address] [facility] [place] [address] Referral ID Status Reason Start Date Expiration Date V isits Requested Visits Authorized [id number] Closed Specialty Service Requested 11/27/2023 11/26/2024 1 1 * Diagnostic Test (Routine) - Closed Specialty Diagnoses / Procedures Referred By Contac t Referred To Contact Cardiology Diagnoses PAF (paroxysmal atrial fibrillation) History of radiofrequency ablation (RFA) for complex left atrial arrhythmia Dilated cardiomyopathy Procedures Echocardiogram Transthoracic Peter Jaramillo PA [facility] [address] [facility] [place] [address] Referral ID Status Reason Start Date Expiration Date V isits Requested Visits Authorized [id number] Closed Specialty Service Requested 11/27/2023 11/26/2024 1 1 Encounter Details Date Type Department Care Team (Latest Contact Info) Description 11/27/2023 1:00 PM EDT Office Visit Cardiology at [address] [address] Peter Jaramillo PA [facility] [place] [address] PAF (paroxysmal atrial fibrillation); History of radiofrequency ablation (RFA) for complex left atrial arrhythmia; Dilated cardiomyopathy; Palpitations Social History Tobacco Use Types Packs/Day Years [...] Sign Reading Time Taken Comments Blood Pressure 136/76 11/27/2023 1:21 PM EDT Pulse 89 11/27/2023 1:21 PM EDT Temperature - - Respiratory Rate - - Oxygen Saturation 98% 11/27/2023 1:21 PM EDT Inhaled Oxygen Concentration - - Weight 88.5 kg (195 lb) 11/27/2023 1:21 PM EDT Height 195.6 cm (6' 5) 11/27/2023 1:21 PM EDT Body Mass Index 23.12 11/27/2023 1:21 PM EDT documented in this encounter Progress Notes * Peter Jaramillo PA - 11/27/2023 1:00 PM EDT Cardiac Electrophysiology Clinic Visit Subjective: Patient ID: Meryl Horn is a 38 y.o. male. CC: Follow up of PAF, s/p ablation HPI: 38 y.o. male with past medical history of paroxysmal atrial fibrillation ([id number]: 0), previously on Eliquis and Flecainide, mild cardiomyopathy (suspected tachycardia-related LVEF 45%), s/p pulmonary vein isolation (PVI) pulsed-field ablation (electroporation) on 07/16/2023, who presentedtoday in routine follow-up. Current Condition/Complaint: - Left hand injury from basketball incident - Scheduled for potential surgery - Experiencing palpitations and concerns about heart rhythm Subjective: - Patient reports basketball injury: I played basketball, got my legs taken out up in the air andlanded on his left hand. - Scheduled for potential hand surgery: I probably have to get surgery, I guess. - Seeking second opinion for hand injury - Reports two types of palpitations: 1. Fast then slow rhythmic beating 2. Brief episodes of fast, irregular heartbeat lasting about a second - Associates palpitations with recent Wellbutrin dosage change - Notices increased heart rate with caffeine consumption while on Wellbutrin - Expresses anxiety about increasing Wellbutrin dose due to palpitations - Reports increased stress related to health issues with 2-year-old child Objective: - Recent EKG: Normal sinus rhythm, heart rate 83 bpm - Post-ablation echocardiogram: Ejection fraction improved to over 50% in sinus - [id number] score: 0 Patient Active Problem List Diagnosis Paroxysmal atrial fibrillation PAF (paroxysmal atrial fibrillation) ROS: Constitutional: - fatigue, - fever, - chills Respiratory: - shortness of breath, - cough, - apnea, - wheezing Cardiovascular: - chest pain, - palpitations, - unusual rates Gastrointestinal: - nausea, - vomiting, - abdominal pain, - diarrhea Neurological: - lightheadedness, - dizziness, - syncope, - weakness Musculoskeletal: +left hand pain, + left hand weakness; - numbness/neuropathy Psychiatric: - anxious Medications: Current Outpatient Medications Medication Sig Dispense Refill LORazepam (Ativan) 0.5 mg tablet 1 tab TID PRN. 60 tablet 2 buPROPion SR (Wellbutrin SR) 100 mg SR 12 hr tablet 1 tab every morning for 1 week and then D/C unless one tab a day proves beneficial. On a separate Rx will eprescribe bupropion 150 mg XL. 7 tablet 4 buPROPion XL (Wellbutrin XL) 150 mg XL 24 hr tablet Take 1 tablet by mouth every morning. He will begin 150 mg XL after trying 100 mg SR for a week. However if 100 mg SR provides benefit he will remail on 100 mg SR and not take 150 mg XL. 30 tablet 2 traZODone (Desyrel) 50 mg tablet 1/2 to 2 tabs HS as directed (I provided him a specific titration schedule.Please call our office if questions.) (Patient taking differently: as needed. 1/2 to 2 tabsHS as directed (I provided him a specific titration schedule.Please call our office if questions.))30 tablet 2 LORazepam (Ativan) 0.5 mg tablet 1 tab TID PRN. (Patient not taking: Reported on 11/27/2023) 20 tablet 0 buPROPion SR (Wellbutrin SR) 100 mg SR 12 hr tablet 1 tab QD (in addition to 150 mg XL every morning on a separate Rx). (Patient not taking: Reported on 11/27/2023) 30 tablet 2 Social History Socioeconomic History Marital status: Spouse name: Not on file Number of children: Not on file Years of education: Not on file Highest education level: Not on file Occupational History Not on file Tobacco Use Smoking status: Former Types: Cigarettes Passive exposure: Past Smokeless tobacco: Former Vaping Use Vaping status: Never Used Substance and Sexual Activity Alcohol use: Not Currently Drug use: Not Currently Sexual activity: Not on file Other Topics Concern Not on file Social History Narrative Not on file Social Determinants of Health Financial Resource Strain: Not on file Food Insecurity: Not on file Transportation Needs: Not on file Physical Activity: Not on file Intimate Partner Violence: Not on file Housing Stability: Not on file Objective: Vitals: Vitals: 11/27/23 1321 BP: 136/76 BP Location (NBP): Left arm Patient Position: Sitting BP Cuff Sizes: Large Adult (32-43 cm) Pulse: 89 SpO2: 98% Weight: 88.5 kg (195 lb) Height: 195.6 cm (6' 5) Physical Exam: General- No acute distress, sitting comfortably in exam room chair HEENT- Head atraumatic, normocephalic Skin- Warm and dry Cardiovascular- S1/S2 regular rate and rhythm. No murmur, rub or gallop Lungs- Clear to auscultation bilaterally Extremities- Pulses equal bilaterally. 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 Echo results showed significant improvement in LVEF to 69% in the setting of rhythm control post-ablation. - Schedule Zio patch monitoring in 2-3 weeks to assess for any arrhythmias in the setting of palpitations (patient prefers to have it done after potential left hand surgery). Will mail it to his homeaddress for self-administration. - Advise reduction or elimination of caffeine intake; suggest decaf or half-caff options - Recommend follow-up with prescribing psychiatrist regarding Wellbutrin side effects and potentialdose adjustment - Follow-up to be determined based on Zio patch results. Dr. Abel Benson was present during portion of this visit and impression and plan reflect our discussion. All patient's questions and concerns were answered directly by Dr. Benson to patient's fullest satisfaction. No additional questions or concerns were brought up at the conclusion of the visit. documented in this encounter Plan of Treatment Upcoming Encounters Date Type Department Care Team (Late st Contact Info) Description 02/29/2024 7:30 PM EDT [facility] [address] [place] [address] 04/11/2024 1:00 PM EST Office Visit Cardiology at [address] [address] Gerardo Lobo MD [facility] [address] documented as of this encounter Procedures Procedure Name Priority Date/Time Associated Diagnosis Comments EKG 12-LEAD Routine 11/27/2023 1:35 PM EDT PAF (paroxysmal atrial fibrillation) documented in this encounter Results * Ziopatch 48 Hrs-15 Days (12/24/2023 6:45 AM EDT) Total Enrollment Period [id number] IRHYTHM Anatomical Region Laterality Modality Other 12/24/2023 Narrative 01/21/2024 3:01 PM EDT [facility] ? Zio Patch Ambulatory Cardiac Event [...] tab. ??For patients accessing the study from [facility] (My Chart), click on the link or links found in the IMAGES area below the text of the report. Gerardo Lobo MD FACC Dwaine Lane MD CARDIAC SERVICES ORD ERABLES * ECHO COMPLETE (11/27/2023 2:40 PM EDT) EF 69 HEARTLAB SYSTEM Anatomical Region Laterality Modality Cardiac Other 11/27/2023 2:09 PM EDT Narrative 11/27/2023 5:26 PM EDT [address] [place] [address] ? Echocardiogram Report Name: MERYL HORN ?Study Date: 11/27/2023 02:09 PMBP: 136/76 mmHg ? Patient Location: 4A : 1985 ? Height: 196 cm ? Account: [id number] Age: 38 yrs ? Weight: 89 kg Gender: Male ?BSA: 2.2 m2 Ordering Physician: DWAINE LANE Referring Physician: PETER JARAMILLO Performed By: Javan Bolivar RDCS Reason For Study: PAF (paroxysmal atrial fibrillation) Interpreting Fellow: Basilio Foy. Exam Location: [facility]. Interpretation Summary -Left ventricle is of [...] severe diastolic dysfunction no longer present Procedure Complete-12303. 3D - 64285. Satisfactory quality. There is normal sinus rhythm. [...] Procedure Note Rod Anderson MD - 11/27/[address] [place], [place] [id number] Echocardiogram Report Name: MERYL HORN Study Date: 402:09 PMBP: 136/76 mmHg Patient Location: : 1985 Height: 196 cm Account: [id number] Age: 38 yrs Weight: 89 kg Gender: Male BSA: 2.2 m2 Ordering Physician: DWAINE LANE Referring Physician: PETER JARAMILLO Performed By: Javan Bolivar RDCS Reason For Study: PAF (paroxysmal atrial fibrillation) Interpreting Fellow: Basilio Foy. Exam Location: [facility]. Interpretation Summary -Left ventricle is of normal chamber size and wall thickness. Systolicfunction is normal with an ejection fraction of 69% and no wall motionabnormalities. -Right ventricle is of normal size and function. -There is mild bi-atrial dilation. -There is no hemodynamically significant valve disease. - Compared with previous study of 06/20/23, systolic function hasnormalized, severe diastolic dysfunction no longer present Procedure Complete-76302. 3D - 39706. Satisfactory quality. There is normal sinusrhythm. Left [...] (Bezet) 404 ms MUSE SYSTEM Calculated P Rexford 80 degrees MUSE SYSTEM Calculated R Rex[place] 95 degrees MUSE SYSTEM Calculated T Rexford 19 degrees MUSE SYSTEM INTERPRETATION Normal sinus rhythm Rightward axis Pulmonary disease pattern Abnormal ECG When compared with ECG of 16-JUL-2023 16:20, No significant change was found Confirmed by MD Letty, Ambrose ([id number]) on 11/27/2023 3:26:35 PM MUSE SYSTEM 11/27/2023 1:35 PM EDT 11/27/2023 3:[address] MD ECG ORDERABLES MUSE SYSTEM documented in this encounter Visit Diagnoses Diagnosis PAF (paroxysmal atrial fibrillation) Atrial fibrillation History of radiofrequency ablation (RFA) for complex left atrial arrhythmia Dilated cardiomyopathy Other primary cardiomyopathies Palpitations PAF (paroxysmal atrial fibrillation) Atrial fibrillation History of radiofrequency ablation (RFA) for complex left atrial arrhythmia Dilated cardiomyopathy Other primary cardiomyopathies PAF (paroxysmal atrial fibrillation) Atrial fibrillation History of radiofrequency ablation (RFA) for complex left atrial arrhythmia Palpitations documented in this encounter Care Teams Tc Operator Relationship Specialty Start Date End Date Sharri Rosario APRN [address] [place] [address] PCP - General Family Medicine 06/01/22 documented as of this encounter
--- OUTSIDE RECORDS SUMMARY | 2024-02-21 12:24 | XMS_ITS | Encounter Summary ---
Author Organization [facility] [place] [address] Care Team Providers Care Health Informatics Specialist Name Role Phone Sharri Rosario APRN Primary Care Provider [phone] Reason for Visit * Reason Onset Date Comments Appointment 10/08/2023 Sleep Study Encounter Details Date Type Department Care Team (Late st Contact Info) Description 10/08/2023 Telephone Sleep Center at [facility] [address] [place] [address] Gregoria Hsieh APRN [facility] [place] [address] Appointment (Sleep Study) Social History Tobacco Use Types Packs/Day Years [...] encounter Miscellaneous Notes * Telephone Encounter - Nilam Muller - 10/09/2023 11:39 AM EDT Spoke w pt - stated we needed to schedule 2 weeks out to obtain PA from insurance - scheduled * Telephone Encounter - Netta Niño - 10/08/2023 4:09 PM EDT Message: Patient called and states he will be at [facility] on 10/10/2023 and would like to slate picker test at that time due to travel. Patient states he was informed it could not be mailed and he would need to participate in the class. Please call to further discuss. Ask caller their first and last name and relationship to the patient: Roni Horn Best time to call back: anytime Ok to leave a message: yes Ok to send - message: yes Offered Appointment: yes-declined at this time. Please see message above MA/Nurse/Rn Correctional contacted via:N/A Message: yes Call: no Pager: no documented in this encounter Plan of Treatment Upcoming Encounters Date Type Department Care Team (Late st Contact Info) Description 02/29/2024 7:30 PM EDT Procedure visit Sleep Center at [facility] [address] [place] [address] 04/11/2024 1:00 PM EST Office Visit Cardiology at [address] [address] Gerardo Lobo MD [facility] [place] [address] documented as of this encounter Visit Diagnoses Not on filedocumented in this encounter Care Teams Health Informatics Specialist Relationship Specialty Start Date End Date Sharri Rosario APRN [address] [place] [address] PCP - General Family Medicine 06/01/22 documented as of this encounter
--- OUTSIDE RECORDS SUMMARY | 2024-02-21 12:24 | XMS_ITS | Encounter Summary ---
Author Organization [facility] [place] [address] Care Team Providers Care Showplace Manager Name Role Phone Sharri Rosario APRN Primary Care Provider [phone] Encounter Details Date Type Department Care Team (Late st Contact Info) Description 07/18/2023 Telephone Cardiology at [address] [phone] Jessica Cole RN Social History Tobacco Use Types Packs/Day [...] encounter Miscellaneous Notes * Telephone Encounter - Jessica Cole RN - 07/18/2023 4:26 PM EDT RTC to pt after f/u advisement from Dr. Abad & Dr. Benson. They recommended pt take ibuprofen (with food and water) and Tylenol around the clock to help manage discomfort. Tylenol should be a total of 1 gram (1,000 mg) every 8 hrs and ibuprofen 600 mg every 8 hours. These medications can be taken simultaneously or staggered. In the meantime Dr. Benson has reached out to Dr. Fernandes to explore other medication options. Relayedthis information to pt who was agreeable with advisement. Recommended he also seek emergent medicalattention if pain becomes severe or new/worsening symptoms arise. Pt verbalized understanding &agreeable with advisement. * Telephone Encounter - Jessica Cole RN - 07/18/2023 12:56 PM EDT TC from pt s/p Afib ablation on 07/15 and discharge on 07/[address] Benson Pt called today to report that his severe R flank pain that was provoked by deep breathing, speaking, & movement of abdominal muscles that was mentioned in discharge note has subsided but that heis having sharp, shooting nerve pain on the R side of his neck/collar bone mostly when moving certain ways or when getting out of bed at a certain angle, but also with deep breathing & talking b ut is not as severe. Pain is exacerbated/increased by lying on R side or lying on stomach (describes as 10 out of 10 pain during these activities) & pain will also shoot down from neck into stomach/diaphragm area. Hehas taken Tylenol to try & manage it but it hasn't had a huge impact on his discomfort Reached out to Dr. Abad & Dr. Benson via email & SecureChat for advisement documented in this encounter Plan of Treatment Upcoming Encounters Date Type Department Care Team (Late st Contact Info) Description 02/29/2024 7:30 PM EDT Procedure visit Sleep Center at [facility] [address] [place] [address] 04/11/2024 1:00 PM EST Office Visit Cardiology at [address] [address] Gerardo Lobo MD [facility] [place] [address] documented as of this encounter Visit Diagnoses Not on filedocumented in this encounter Care Teams Showplace Manager Relationship Specialty Start Date End Date Sharri Rosario APRN [address] [place] [address] PCP - General Family Medicine 06/01/22 documented as of this encounter
--- OUTSIDE RECORDS SUMMARY | 2024-02-21 12:24 | XMS_ITS | Encounter Summary ---
Author Organization [facility] Address [facility] [place] [address] Care Team Providers Care Veneer Layer Name Role Phone Sharri Rosario APRN Primary Care Provider [phone] Encounter Details Date Type Department Care Team (Latest Contact Info) Description 10/10/2023 Travel Social History Tobacco Use Types Packs/Day [...] PM EDT Procedure visit Sleep Center at [facility] [address] [place] [address] 04/11/2024 1:00 PM EST Office Visit Cardiology at [address] [address] Gerardo Lobo MD [facility] [place] [address] documented as of this encounter Visit Diagnoses Not on filedocumented in this encounter Care Teams Veneer Layer Relationship Specialty Start Date End Date Sharri Rosario APRN [address] [place] [address] PCP - General Family Medicine 06/01/22 documented as of this encounter
--- OUTSIDE RECORDS SUMMARY | 2024-02-21 12:24 | XMS_ITS | Encounter Summary ---
Author Organization [facility] Address [facility] [place] [address] Care Team Providers Care Distributor Operator Name Role Phone Sharri Rosario APRN Primary Care Provider [phone] Encounter Details Date Type Department Care Team (Latest Contact Info) Description 11/07/2023 3:30 PM EDT Procedure visit Sleep Center at [facility] [address] [place] [address] Paroxysmal atrial fibrillation; Non-restorative sleep Social History [...] PM EDT Procedure visit Sleep Center at [facility] [address] [place] [address] 04/11/2024 1:00 PM EST Office Visit Cardiology at [address] [address] Gerardo Lobo MD [facility] [place] [address] documented as of this encounter Visit Diagnoses Diagnosis Paroxysmal atrial fibrillation Atrial fibrillation Non-restorative sleep Other sleep disturbances documented in this encounter Care Teams Distributor Operator Relationship Specialty Start Date End Date Sharri Rosario APRN [address] [place] [address] PCP - General Family Medicine 06/01/22 documented as of this encounter
--- OUTSIDE RECORDS SUMMARY | 2024-02-21 12:24 | XMS_ITS | Encounter Summary ---
Author Organization [facility] Address [address] [place] [address] Care Team Providers Care Batch Records Clerk Name Role Phone Unavailable Primary Care Provider Unavailabl e Reason for Visit * Reason Comments Other covid-19 rule out te sting Encounter Details Date Type Department Care Team (Late st Contact Info) Description 04/21/2020 10:30 EST Office Visit [facility] - Mobile Testing Department [address] [place] [address] Nurse, [facility] Mobile Testing Screening for viral disease (Primary Dx) Social History Tobacco Use Types Packs/Day Years Used Date Smoking Tobacco: Never Assessed Interpersonal Safety Answer Date Record ed Physically Hurt Never 04/20/2020 Verbally Threaten Not on file 04/20/2020 Sex and Gender Information Value Date Recorded Sex Assigned at Not on file Gender Identity Male 11/25/2023 10:46 EDT Sexual Orientation Not on file documented as of this encounter Progress Notes * Jenifer Dia - 04/21/2020 1030 EST Covid specimen collected by: Sia Dietrich, RN Patient tolerated well. Covid instructional hand-out given. documented in this encounter Plan of Treatment Not on file documented as of this encounter Visit Diagnoses Diagnosis Screening for viral disease- Primary Special screening examination for unspecified viral disease documented in this encounter
--- OUTSIDE RECORDS SUMMARY | 2024-02-21 12:24 | XMS_ITS | Encounter Summary ---
Author Organization [facility] [place] [address] Care Team Providers Care Typecasting Machine Operator Name Role Phone Sharri Rosario APRN Primary Care Provider [phone] Encounter Details Date Type Department Care Team (Late st Contact Info) Description 01/29/2024 1:40 PM EDT Office Visit Cardiology at [address] [phone] Gerardo Lobo MD [facility] [place] [address] SVT (supraventricular tachycardia) Social History Tobacco Use Types Packs/Day Years [...] Pulse 56 01/29/2024 1:35 PM EDT Temperature - - Respiratory Rate - - Oxygen Saturation 100% 01/29/2024 1:35 PM EDT Inhaled Oxygen Concentration - - Weight 87.7 kg (193 lb 6.4 oz) 01/29/2024 1:35 P M EDT Height 195.6 cm (6' 5) 01/29/2024 1:35 PM EDT Body Mass Index 22.93 01/29/2024 1:35 PM EDT documented in this encounter Progress Notes * Gerardo Lobo MD - 01/29/2024 1:40 PM EDT Images from the original note were not included. Formerly [facility] [place] [address] CARDIOLOGY OUTPATIENT PROGRESS NOTE PRIMARY CARE PROVIDER: Sharri Rosario APRN REFERRING PROVIDER: Sharri Rosario PROBLEM LIST: Patient Active Problem List Diagnosis Paroxysmal atrial fibrillation PAF (paroxysmal atrial fibrillation) MEDICATIONS: Current Outpatient Medications Medication Sig Dispense Refill buPROPion XL (Wellbutrin XL) 300 mg XL 24 hr tablet Take 1 tablet by mouth every morning. 30 tablet2 LORazepam (Ativan) 0.5 mg tablet 1 tab TID PRN. 60 tablet 2 LORazepam (Ativan) 0.5 mg tablet 1 tab TID PRN. (Patient not taking: Reported on 11/27/2023) 20 tablet 0 buPROPion SR (Wellbutrin SR) 100 mg SR 12 hr tablet 1 tab QD (in addition to 150 mg XL every morning on a separate Rx). (Patient not taking: Reported on 11/27/2023) 30 tablet 2 traZODone (Desyrel) 50 mg tablet 1/2 to 2 tabs HS as directed (I provided him a specific titration schedule.Please call our office if questions.) (Patient not taking: Reported on 01/29/2024) 30 tablet2 No current facility-administered medications for this visit. Subjective: Patient ID: Roni Horn is a 38 y.o. patient of Sharri Rosario APRN. HPI: Came in for a follow-up of his atrial fibrillation status post ablation. Since the last visit he had a Zio patch placed which revealed that he had a few episodes of supraventricular tachycardia which were symptomatic the longest lasting for 11 beats. No atrial fibrillation seen. He continues to have significant stress at home because of sickness in the family and is having issues controllingthe blood pressure. Will try diltiazem, as he did not tolerate metoprolol in the past, in order to control the palpitations and improving the blood pressure. We also discussed with him to continue his antidepressants and antianxiety medications. His echo shows that his ejection fraction has normaliz ed suggesting that his previously decreased left ventricular systolic function was secondary to thetachycardia REVIEW OF SYSTEMS: Unchanged from prior Family History: No family history on file. Social History: Social History Socioeconomic History Marital status: Spouse [...] file Housing Stability: Not on file Objective: PHYSICAL EXAM: BP (!) 141/91 Pulse 56 Ht 195.6 cm (6' 5) Wt 87.7 kg (193 lb 6.4 oz) SpO2 100% BMI 22.93kg/m?? , Body mass index is 22.93 kg/m??. General: Pleasant. No distress. Skin: Warm and dry. HEENT: Anicteric sclera. Neck: JVP not elevated. No AJR. No carotid bruits. Chest: Clear to auscultation Heart: No heave. Regularly regular rhythm. Normal S1 and S2. No gallops. No murmurs. Abdomen: Nondistended. Soft. Nontender. Extremities: No edema. PRODUCTION ASSEMBLY OPERATOR: Normal mentation. Psych: Appropriate affect. Labs: Lab Results Component Value Date WBC 8.5 07/16/2023 WBC 10.2 (H) 06/22/2023 HGB 16.2 07/16/2023 HGB 15.9 06/22/2023 PLATELET 308 07/16/2023 PLATELET 351 06/22/2023 NA 140 07/16/2023 NA 143 06/22/2023 NA 144 06/20/2023 K 4.4 07/16/2023 K 4.7 06/22/2023 CL 102 07/16/2023 CL 103 06/22/2023 CO2 30 07/16/2023 CO2 29 06/22/2023 BUN 14 07/16/2023 BUN 15 06/22/2023 CREATININE 0.99 07/16/2023 CREATININE 1.05 06/22/2023 Assessment and Plan: #1 Paroxysmal atrial fibrillation Status post ablation, maintaining normal sinus rhythm, serial patch revealed short episodes of SVT.He is intolerant of beta-blockers so because of the palpitations and also hypertension we are goingto initiate diltiazem 120 mg daily #2 Palpitation Due to symptomatic SVT, will initiate diltiazem as above #3 Hypertension Not well-controlled. In the office today was 141/91. He is under a great deal of stress at home taking antianxiety meds and antidepressants #4 Tachycardia induced cardiomyopathy Ejection fraction normalized suggesting that this was tachycardia induced cardiomyopathy Thank you for the opportunity to participate in this patient's cardiovascular care. All questions were answered and I look forward to the next visit. Gerardo Lobo MD documented in this encounter Plan of Treatment Upcoming Encounters Date Type Department Care Team (Late st Contact Info) Description 02/29/2024 7:30 PM EDT Procedure visit Sleep Center at [address] [address] 04/11/2024 1:00 PM EST Office Visit Cardiology at [address] [phone] Gerardo Lobo MD [facility] [place] [address] documented as of this encounter Visit Diagnoses Diagnosis SVT (supraventricular tachycardia) Other specified cardiac dysrhythmias documented in this encounter Care Teams Typecasting Machine Operator Relationship Specialty Start Date End Date Sharri Rosario APRN [address] [place] [address] PCP - General Family Medicine 06/01/22 documented as of this encounter
--- OUTSIDE RECORDS SUMMARY | 2024-02-21 12:24 | XMS_ITS | Encounter Summary ---
Author Organization [facility] [place] [address] Care Team Providers Care Mental Tester Name Role Phone Sharri Rosario APRN Primary Care Provider [phone] Encounter Details Date Type Department Care Team (Late st Contact Info) Description 11/25/2023 12:10 AM EDT Ancillary Procedure Radiology Library [place] [phone] Sharri Rosario APRN [address] [place], [place] [phone] Social History Tobacco Use Types Packs/Day Years [...] visit Sleep Center at [facility] [address] [place] [address] 04/11/2024 1:00 PM EST Office Visit Cardiology at [address] [place] [phone] Gerardo Lobo MD [facility] [place] [address] documented as of this encounter Procedures Procedure Name Priority Date/Time Associated Diagnosis Comments FILM LIBRARY STORAGE ONLY CT WRIST Routine 11/25/2023 12:10 AM EDT documented in this encounter Results * Film Library- Storage Only CT Wrist (11/25/2023 12:10 AM EDT) Narrative [facility] - 11/27/2023 12:11 PM EDT This exam is auto-finalizing. It's purpose is for storage only. Sharri LARSON FILM LIBRARY ORD ERABLES [place], [place] documented in this encounter Visit Diagnoses Not on filedocumented in this encounter Care Teams Mental Tester Relationship Specialty Start Date End Date Sharri Rosario APRN [address] [place] [address] PCP - General Family Medicine 06/01/22 documented as of this encounter
--- OUTSIDE RECORDS SUMMARY | 2024-02-21 12:24 | XMS_ITS | Encounter Summary ---
Author Organization [facility] Address [address] [place] [address] Care Team Providers Care Opal Polisher Name Role Phone Unavailable Primary Care Provider Unavailabl e Encounter Details Date Type Department Care Team (Late st Contact Info) Description 04/21/2020 Results Only [facility] [address] [place] [phone] Anna Webster MD [address] [facility] [address] [place], [place] [phone] Social History Tobacco Use Types Packs/Day Years [...] Procedure Name Priority Date/Time Associated Diagnosis Comments COVID-19 TESTING Routine 04/21/2020 10:5 2 EST documented in this encounter Results * COVID-19 TESTING (04/21/2020 10:52 EST) Performing Lab AB [id number] 04/22/2020 15:12 EST [facility] Comment: RESULT: [employer] 7 [facility] Please indicate the Triage Tier2 Test performed or referred by The [address] [address] COVID-19 rt-PCR Result Not Detected Negative 04/22/2020 15:12 EST [facility] Comment: Negative results do not preclude 2019-nCoV infection and should not be used as the sole basis for treatment or other patient management decisions. Negative results must be combined with clinical observations, patient history, and epidemiological information. This test was developed and its performance characteristics determined by [facility]. It has not been cleared or approved [...] defined by the FDA Performed on the [employer] Flex. 04/21/2020 10:5 2 EST 04/21/2020 11:22 EST Anna Webster MD MICROBIOLOGY - GENER AL ORDERABLES [facility] [address] [place] [address] documented in this encounter Visit Diagnoses Not on filedocumented in this encounter
--- OUTSIDE RECORDS SUMMARY | 2024-02-21 12:24 | XMS_ITS | Encounter Summary ---
Author Organization [facility] [place] [address] Care Team Providers Care Captain Fire Prevention Bureau Name Role Phone Sharri Rosario APRN Primary Care Provider [phone] Reason for Referral * Diagnostic Test (Routine) - Closed Specialty Diagnoses / Procedures Referred By Contac t Referred To Contact Cardiology Diagnoses PAF (paroxysmal atrial fibrillation) History of radiofrequency ablation (RFA) for complex left atrial arrhythmia Palpitations Procedures Ziopatch 48 Hrs-15 Days Peter Jaramillo PA [facility] [place] [address] [facility] [place] [address] Referral ID Status Reason Start Date Expiration Date V isits Requested Visits Authorized [id number] Closed Specialty Service Requested 11/27/2023 11/26/2024 1 1 Reason for Visit * Diagnostic Test (Routine) - Closed Specialty Diagnoses / Procedures Referred By Contac t Referred To Contact Cardiology Diagnoses PAF (paroxysmal atrial fibrillation) History of radiofrequency ablation (RFA) for complex left atrial arrhythmia Palpitations Procedures Ziopatch 48 Hrs-15 Days Peter Jaramillo PA [facility] [place] [address] [facility] [place] [address] Referral ID Status Reason Start Date Expiration Date V isits Requested Visits Authorized [id number] Closed Specialty Service Requested 11/27/2023 11/26/2024 1 1 Encounter Details Date Type Department Care Team (Latest Contact Info) Description 12/24/2023 6:45 AM EDT - 12/24/2023 11:59 PM EDT Hospital Encounter Non[place] [address] MD [facility] [place] [address] PAF (paroxysmal atrial fibrillation); History of radiofrequency ablation (RFA) for complex left atrial arrhythmia; Palpitations Discharge Disposition: Home Social History Tobacco Use [...] if questions.) 30 tablet 2 05/31/2023 buPROPion XL (Wellbutrin XL) 300 mg XL 24 hr tablet Take 1 tablet by mouth every morning. 30 tablet 2 12/20/2023 02/05/2024 buPROPion SR (Wellbutrin SR) 100 mg SR 12 hr tablet 1 tab QD (in addition to 150 mg XL every morning on a separate Rx). 30 tablet 2 10/10/2023 02/05/2024 documented as of this encounter Plan of Treatment Upcoming Encounters Date Type Department Care Team (Late st Contact Info) Description 02/29/2024 7:30 PM EDT Procedure visit Sleep Center at [facility] [address] [place] [address] 04/11/2024 1:00 PM EST Office Visit Cardiology at [address] [address] Gerardo Lobo MD [facility] [place] [address] documented as of this encounter Procedures Procedure Name Priority Date/Time Associated Diagnosis Comments ZIOPATCH 48 HRS-15 DAYS Routine 12/24/2023 6:45 AM EDT PAF (paroxysmal atrial fibrillation) History of radiofrequency ablation (RFA) for complex left atrial arrhythmia Palpitations documented in this encounter Results * Ziopatch 48 Hrs-15 Days (12/24/2023 6:45 AM EDT) Total Enrollment Period [id number] Anatomical Region Laterality Modality Other 12/24/2023 Narrative 01/21/2024 3:01 PM EDT [facility] ? Zio Patch Ambulatory Cardiac Event Monitor [...] tab. ??For patients accessing the study from [facility] (My Chart), click on the link or links found in the IMAGES area below the text of the report. Gerardo Lobo MD FACC Vik Lane MD CARDIAC SERVICES ORD ERABLES documented in this encounter Visit Diagnoses Diagnosis PAF (paroxysmal atrial fibrillation) Atrial fibrillation History of radiofrequency ablation (RFA) for complex left atrial arrhythmia Palpitations documented in this encounter Care Teams Captain Fire Prevention Bureau Relationship Specialty Start Date End Date Sharri Rosario APRN [address] [place] [address] PCP - General Family Medicine 06/01/22 documented as of this encounter
--- OUTSIDE RECORDS SUMMARY | 2024-02-21 12:24 | XMS_ITS | Encounter Summary ---
Author Organization [facility] Address [address] [place] [address] Care Team Providers Care Consumer Sales Representative Name Role Phone Unavailable Primary Care Provider Unavailabl e Reason for Visit * Reason Onset Date Comments Other 04/24/2020 covid neg Encounter Details Date Type Department Care Team (Late st Contact Info) Description 04/24/2020 Telephone [facility] Testing Department [address] [place] [address] Kasey Lopez RN Other (covid neg) Social History Tobacco Use Types Packs/Day Years [...] encounter Miscellaneous Notes * Telephone Encounter - Kasey Lopez RN - 04/24/2020 0853 EST Pt aware covid neg. Patient is feeling alittle better will stay home intil he goes without fever for 24 hrs and is feeling better. He will call his primary if needed. covid was neg. Patient reminded to use masks, social distancing, and frequent hand washing documented in this encounter Plan of Treatment Not on file documented as of this encounter Visit Diagnoses Not on filedocumented in this encounter
--- OUTSIDE RECORDS SUMMARY | 2024-02-21 12:24 | XMS_ITS | Encounter Summary ---
Author Organization [facility] Address [address] [place] [address] Care Team Providers Care Security Assurance Specialist Name Role Phone Sharri Rosario ZANE Primary Care Provider [phone] Encounter Details Date Type Department Care Team (Late st Contact Info) Description 11/10/2020 Lab Requisition [facility] Pathology & Laboratory Medicine - [address] [address] Outr Resulting Lab, Provider Social History Tobacco [...] Procedure Name Priority Date/Time Associated Diagnosis Comments HEPATITIS C AB W REFLEX TO HCV RNA BY PCR Routine 11/10/2020 8:05 EDT documented in this encounter Results * HEPATITIS C AB W REFLEX TO HCV RNA BY PCR (11/10/2020 8:05 EDT) Hep C Antibody Negative Negative 11/11/2020 10:33 EDT [facility] Blood VENOUS BLOOD / Unknown 11/10/2020 8:05 EDT 11/10/2020 20:48 EDT Provider Outr Resulting Lab CHEMISTRY & BLOOD GAS ORDERABLES [facility] [address] [place] [address] documented in this encounter Visit Diagnoses Not on filedocumented in this encounter Care Teams Security Assurance Specialist Relationship Specialty Start Date End Date Sharri Rosario FNP [address] [phone] PCP - General Family Medicine - Primary Care 11/25/23 documented as of this encounter
--- OUTSIDE RECORDS SUMMARY | 2024-02-21 12:24 | XMS_ITS | Referral Summary ---
Author Organization [facility] Address [address] [place] [address] Care Team Providers Care Prepared Foods Team Leader Name Role Phone Sharri Rosario ZANE Primary Care Provider [phone] Encounters Date Type Department Care Team Description 11/27/2023 Telephone [facility] Hand & Upper Extremity Program - [facility] [place], [place] [phone] Ronal Mays MD Surgery Cancellation 11/25/2023 10:16 EDT - 11/25/2023 15:38 EDT Emergency [facility] Emergency Department - Main [address] [address] Gm Freed MD Closed fracture of left wrist, initial encounter (Primary Dx) Discharge Disposition: Home or Self Care from Last 3 Months Allergies Active Allergy Reactions Criticality Noted Date Comments Codeine 11/25/2023 Stomach pain Social History Tobacco Use Types Packs/Day Years [...] 23.72 11/25/2023 0957 EDT Plan of Treatment Not on file Procedures Procedure Name Priority Date/Time Associated Diagnosis [...] above interpretation and agree with the findings. [id number] Narrative 11/25/2023 15:[address] WRIST LEFT [...] time of final interpretation. Resulting Agency Comment [id number] Procedure Note Ruslan Park MD - 11/25/2023 [...] the above interpretation andagree with the findings. [id number] Peter Vigil MD IMG CT ORDERABLES * XR FOREARM LEFT 2 VIEWS (11/25/2023 11:35 EDT) Anatomical Region Laterality Modality Upper Extremities Left Computed Radio graphy 11/25/2023 11:3 8 EDT Impressions 11/25/2023 11:38 EDT * ??No additional fractures identified in the forearm. [id number] Narrative 11/25/2023 11:38 EDT EXAM/TECHNIQUE: 11/25/2023 11:31 [...] of elbow joint effusion. Resulting Agency Comment [id number] Procedure Note Quinn Whitt MD - 11/25/2023 [...] No additional fractures identified in the forearm. [id number] Peter Vigil MD IMG DIAGNOSTIC IMAGI NG ORDERABLES * XR WRIST LEFT 3 OR MORE VIEWS (11/25/2023 10:45 EDT) Anatomical Region Laterality Modality Upper Extremities Left Computed Radio graphy 11/25/2023 10:5 2 EDT Impressions 11/25/2023 10:52 EDT * ??Intra-articular mildly displaced distal radial and ulnar styloid fractures. [id number] Narrative 11/25/2023 10:52 EDT EXAM/TECHNIQUE: 11/25/2023 10:27 [...] of the ulnar styloid. Resulting Agency Comment [id number] Procedure Note Quinn Whitt MD - 11/25/2023 [...] mildly displaced distal radial and ulnar styloidfractures. [id number] Gm Freed MD IMG DIAGNOSTIC IMAG ING ORDERABLES * XR HAND LEFT 3 OR MORE VIEWS (11/25/2023 10:41 EDT) Anatomical Region Laterality Modality Upper Extremities Left Computed Radio graphy 11/25/2023 10:5 2 EDT Impressions 11/25/2023 10:52 EDT * ??Intra-articular mildly displaced distal radial and ulnar styloid fractures. [id number] Narrative 11/25/2023 10:52 EDT EXAM/TECHNIQUE: 11/25/2023 10:27 [...] of the ulnar styloid. Resulting Agency Comment [id number] Procedure Note Quinn Whitt MD - 11/25/2023 [...] mildly displaced distal radial and ulnar styloidfractures. [id number] Gm LARSON DIAGNOSTIC IMAG ING ORDERABLES * HEPATITIS C AB W REFLEX TO HCV RNA BY PCR (11/10/2020 8:05 EDT) Hep C Antibody Negative Negative 11/11/2020 10:33 EDT [facility] Blood VENOUS BLOOD / Unknown 11/10/2020 8:05 EDT 11/10/2020 20:48 EDT Provider Outr Resulting Lab CHEMISTRY & BLOOD GAS ORDERABLES [facility] [address] [place] [address] from Last 3 Months or Most Recently Relevant to Health Maintenance Care Teams Prepared Foods Team Leader Relationship Specialty Start Date End Date Sharri Rosario FNP [address] [place] [phone] PCP - General Family Medicine - Primary Care 7/28/24
--- OUTSIDE RECORDS SUMMARY | 2024-02-21 12:24 | XMS_ITS | Encounter Summary ---
Author Organization [facility] [place] [address] Care Team Providers Care Sheltered Workshop Executive Director Name Role Phone Sharri Rosario APRN Primary Care Provider [phone] Encounter Details Date Type Department Care Team (Late st Contact Info) Description 02/20/2024 Telephone Cardiology at [address] [phone] Chary Soriano, RN Social History Tobacco Use Types Packs/Day [...] encounter Miscellaneous Notes * Telephone Encounter - Chary Soriano, RN - 02/20/2024 3:53 PM EDT VM from patient requesting if Dr. Lobo would be willing to refer the patient to ENT. Patient states he has worsening blockages in his sinuses that causes gagging and difficulty breathing, states he had a sleep study that flagged some issues and he is having a second study done. TC to patient and recommended he follow up with PCP. Patient states he attempted and they would notgive him a referral without seeing him first, and he doesn't want to continue with this PCP. Stateshe doesn't want to wait the amount of time it would take to get a new PCP before he is referred as this is affecting his AFIB. Informed patient again that this referral would need to be discussed with his PCP and that it's not unusual they would want to see him first. Patient disconnected call. Chary Soriano RN [facility] Purple Team Nurse [phone] documented in this encounter Plan of Treatment Upcoming Encounters Date Type Department Care Team (Late st Contact Info) Description 02/29/2024 7:30 PM EDT Procedure visit Sleep Center at [facility] [address] [place] [address] 04/11/2024 1:00 PM EST Office Visit Cardiology at [address] [address] Gerardo Lobo MD [facility] [address] documented as of this encounter Visit Diagnoses Not on filedocumented in this encounter Care Teams Sheltered Workshop Executive Director Relationship Specialty Start Date End Date Sharri Rosario APRN [address] [place] [address] PCP - General Family Medicine 06/01/22 documented as of this encounter
--- OUTSIDE RECORDS SUMMARY | 2024-02-21 12:24 | XMS_ITS | Encounter Summary ---
Author Organization [facility] Address [facility] [place] [place] [address] Care Team Providers Care Weatherization Technician Name Role Phone Sharri Rosario APRN Primary Care Provider [phone] Encounter Details Date Type Department Care Team (Latest Contact Info) Description 11/27/2023 Travel Social History Tobacco Use Types Packs/Day [...] PM EDT Procedure visit Sleep Center at [facility] [address] [place] [address] 04/11/2024 1:00 PM EST Office Visit Cardiology at [address] [address] Gerardo Lobo MD [facility] [place] [address] documented as of this encounter Visit Diagnoses Not on filedocumented in this encounter Care Teams Weatherization Technician Relationship Specialty Start Date End Date hSarri Rosario APRN [address] [place] [address] PCP - General Family Medicine 06/01/22 documented as of this encounter
--- OUTSIDE RECORDS SUMMARY | 2024-02-21 12:24 | XMS_ITS | Encounter Summary ---
Author Organization [facility] [place] [address] Care Team Providers Care Environmental Services Project Manager Name Role Phone Sharri Rosario APRN Primary Care Provider [phone] Encounter Details Date Type Department Care Team (Late st Contact Info) Description 11/28/2023 [place] [phone] Ranjit Padilla MD [facility] [place] [address] Left wrist injury, initial encounter Social History Tobacco Use Types Packs/Day Years [...] PM EDT Procedure visit Sleep Center at [facility] [address] [place] [address] 04/11/2024 1:00 PM EST Office Visit Cardiology at [address] [address] Gerardo Lobo MD [facility] [place] [address] Scheduled Orders Name Type Priority Associated Diagnoses Orde r Schedule XR Wrist 3 Views Left Imaging Routine Left wrist injury, initial encounter Expected: 11/28/2023 (Approximate), Expires: 11/27/2024 documented as of this encounter Visit Diagnoses Diagnosis Left wrist injury, initial encounter documented in this encounter Care Teams Environmental Services Project Manager Relationship Specialty Start Date End Date Sharri Rosario APRN [address] [place] [address] PCP - General Family Medicine 06/01/22 documented as of this encounter
--- OUTSIDE RECORDS SUMMARY | 2024-02-21 12:24 | XMS_ITS | Encounter Summary ---
Author Organization [facility] Address [address] [place] [address] Care Team Providers Care Bee Breeder Name Role Phone AbrahamSharri ZANE Primary Care Provider [phone] Encounter Details Date Type Department Care Team (Late st Contact Info) Description 11/10/2020 Lab Requisition [facility] Pathology & Laboratory Medicine - [address] [address] Outr Resulting Lab, Provider Social History Tobacco [...] Procedure Name Priority Date/Time Associated Diagnosis Comments HIV 1/2 ANTIGEN AND ANTIBODY, 4TH GENERATION Routine 11/10/2020 8:05 EDT documented in this encounter Results * HIV 1/2 ANTIGEN AND ANTIBODY, 4TH GENERATION (11/10/2020 8:05 EDT) HIV 1 and 2 Antibody/p24 Antigen, 4th Generation Negative Negative 11/11/2020 9:41 EDT [facility] Comment: If acute HIV-1 infection is suspected in a high risk ??patient, submit plasma specimen for HIV-1 RNA quantitation test. Fourth Generation assay performed on the Siemens EcoMotorsaur. Blood VENOUS BLOOD / Unknown 11/10/2020 8:05 EDT 11/10/2020 20:48 EDT Provider Outr Resulting Lab IMMUNOLOGY A ND SEROLOGY ORDERABLES [facility] [address] [place] [address] documented in this encounter Visit Diagnoses Not on filedocumented in this encounter Care Teams Bee Breeder Relationship Specialty Start Date End Date Sharri Rosario FNP [address] [place] [address] [place] [phone] PCP - General Family Medicine - Primary Care 11/25/23 documented as of this encounter
--- OUTSIDE RECORDS SUMMARY | 2024-02-21 12:25 | XMS_ITS | Encounter Summary ---
Author Organization [facility] [place] [address] Care Team Providers Care Ladies Suit Operator Name Role Phone Sharri Rosario APRN Primary Care Provider [phone] Reason for Referral * Diagnostic Test (Routine) - New Request Specialty Diagnoses / Procedures Referred By Contac t Referred To Contact Radiology Diagnoses PAF (paroxysmal atrial fibrillation) Procedures CT Cardiac for Morphology & Function Abel Benson MD [facility] [place] [address] [facility] [place] [address] Referral ID Status Reason Start Date Expiration Date Visits Requested Visits Authorized [id number] New Request Specialty Service Requested 06/25/2023 12/23/2024 1 1 Encounter Details Date Type Department Care Team (Late st Contact Info) Description 06/25/2023 Orders Only Cardiology at [address] [phone] Abel Benson MD [facility] [place] [address] PAF (paroxysmal atrial fibrillation) Social History Tobacco Use Types Packs/Day Years Used Date Smoking Tobacco: Former Cigarettes Passive Smoke Exposure: Past Sex and Gender Information Value Date Recorded Sex Assigned at Not on file Gender Identity Not on file Sexual Orientation Not on file documented as of this encounter Progress Notes * Abel Benson MD - 06/25/2023 12:51 PM EST Please see 06/20/23 ED EP COnsult by Dr. José Miguel Flores, co-signed by me. Roni Horn is a 37 y.o. male with symptomatic paroxysmal atrial fibrillation for which he would like to pursue PFA PVI Afib ablation for maintenance of sinus rhythm. Please start most cost-effective DOAC 2 weeks prior to procedure Please hold 1 dose of DOAC (should stop ASA when starting DOAC) prior to procedure Please hold propranolol x 2 doses pre procedure. Orders placed. documented in this encounter H&P Notes * Abel Benson MD - 06/25/2023 12:[address] Flores's (co-signed by me) ED consult note of 06/20/22 for details. 37 yo man w/ increasingly frequent PAF wishing to pursue PFA PVI for maintenance of sinus rhythm. Understands needs to be anticoagulated at the time (preferably 1-2 weeks prior) and minimum 90 [address] ablation[address] procedure orders. Jessica Cole RN : Pt should stop ASA when starting apixiban 2 weeks prior to scheduled procedure. Pt should hold 1 dose of apixiban Pt should hold 2 doses of propranolol Abel Benson MD, PhD, [facility] Cardiac Electrophysiology 06/25/2023 12:56 PM documented in this encounter Plan of Treatment Upcoming Encounters Date Type Department Care Team (Late st Contact Info) Description 02/29/2024 7:30 PM EDT Procedure visit Sleep Center at [facility] [address] [place] [address] 04/11/2024 1:00 PM EST Office Visit Cardiology at [facility] [address] [place] [address] Gerardo Lobo MD [facility] [place] [address] Scheduled Orders Name Type Priority Associated Diagnoses Orde r Schedule CT Cardiac for Morphology & Function Imaging Routine PAF (paroxysmal atrial fibrillation) Expected: 07/09/2023 (Approximate), Expires: 01/08/2024 documented as of this encounter Visit Diagnoses Diagnosis PAF (paroxysmal atrial fibrillation) Atrial fibrillation documented in this encounter Care Teams Ladies Suit Operator Relationship Specialty Start Date End Date Sharri Rosario APRN [address] [place] [address] PCP - General Family Medicine 06/01/22 documented as of this encounter
--- OUTSIDE RECORDS SUMMARY | 2024-02-21 12:25 | XMS_ITS | Encounter Summary ---
[place] [address] Care Team Providers Care Chrome Worker Name Role Phone Sharri Rosario APRN Primary Care Provider [phone] Reason for Referral * Diagnostic Test (Routine) - Closed Specialty Diagnoses / Procedures Referred By Contac t Referred To Contact Cardiology Diagnoses PAF (paroxysmal atrial fibrillation) Procedures Ziopatch 48 Hrs-15 Days Danny Cherry Jr., MD [facility] [place] [address] [facility] [place] [address] Referral ID Status Reason Start Date Expiration Date V isits Requested Visits Authorized [id number] Closed Specialty Service Requested 02/16/2023 02/16/2024 1 1 Reason for Visit * Diagnostic Test (Routine) - Closed Specialty Diagnoses / Procedures Referred By Contac t Referred To Contact Cardiology Diagnoses PAF (paroxysmal atrial fibrillation) Procedures Ziopatch 48 Hrs-15 Days Danny Cherry Jr., MD [facility] [place] [address] [facility] [place] [address] Referral ID Status Reason Start Date Expiration Date V isits Requested Visits Authorized [id number] Closed Specialty Service Requested 02/16/2023 02/16/2024 1 1 Encounter Details Date Type Department Care Team (Latest Contact Info) Description 02/23/2023 6:54 AM EDT - 02/23/2023 11:59 PM EDT Hospital Encounter Non[place] [address] MD [facility] [place] [address] PAF (paroxysmal atrial fibrillation) Discharge Disposition: Home Social History Tobacco Use Types Packs/Day Years Used Date Smoking Tobacco: Former Cigarettes Passive Smoke Exposure: Past Sex and Gender Information Value Date Recorded Sex Assigned at Not on file Gender Identity Not on file Sexual Orientation Not on file documented as of this encounter Medications at Time of Discharge Medication Sig Dispensed Refills Start Date End Date aspirin EC 81 mg Tablet, Delayed Release (E.C.) Take 81 mg by mouth daily. 07/17/2021 07/16/2023 propranolol LA (Inderal LA) 60 mg Capsule,Sustained Action 24 hr Take 1 capsule by mouth daily. 90 capsule 3 07/04/2022 02/26/2023 documented as of this encounter Plan of Treatment Upcoming Encounters Date Type Department Care Team (Late st Contact Info) Description 02/29/2024 7:30 PM EDT Procedure visit Sleep Center at [place] [address] [place] [address] 04/11/2024 1:00 PM EST Office Visit Cardiology at [address] [address] Gerardo Lobo MD [facility] [place] [address] documented as of this encounter Procedures Procedure Name Priority Date/Time Associated Diagnosis Comments ZIOPATCH 48 HRS-15 DAYS Routine 02/23/2023 6:54 AM EDT PAF (paroxysmal atrial fibrillation) documented in this encounter Results * Ziopatch 48 Hrs-15 Days (02/23/2023 6:54 AM EDT) Total Enrollment Period 11.0 IRHYTHM Anatomical Region Laterality Modality Other 02/23/2023 Narrative 03/20/2023 4:46 PM EST [facility] ? Zio Patch? Ambulatory Cardiac Event Monitor Report Duration of recording - 9 days 13 hours ??(after removal of artifact) Summary Data Predominant rhythm - sinus rhythm Minimum sinus rate - 32 bpm Maximum sinus rate - 165 bpm Average heart rate - 60 bpm Atrial fibrillation - 13% A fib burden with rate range 56-250 BPM; average rate 132 BPM. Longest duration 16 h 52 m. Ectopic beats atrial premature beats (APC? s) rare ventricular premature beats (VPC's) rare Tachyarrhythmias There were 2 episodes of NSVT lasting up to 4 beats with a peak rate of 250 BPM There were 3 episodes of SVT lasting up t 9 beats as fast as 138 BPM Bradyarrhythmias No severe or symptomatic bradycardia, significant pauses (>3 seconds) or high grade AV block. Triggered and Patient Diary Events There were 14 triggered and 0 patient diary events which occurred with atrial fibrillation, SVT, sinus and isolated SVE/VEs Conclusion(s): ?? Predominant rhythm is sinus 13% A fib burden with rate range 56-250 BPM; average rate 132 BPM. Longest duration 16 h 52 m. Rare brief symptomatic runs of SVT and NSVT No severe or symptomatic bradycardia, significant pauses (>3 seconds) or high grade AV block. Vik Lane MD CARDIAC SERVICES ORD ERABLES documented in this encounter Visit Diagnoses Diagnosis PAF (paroxysmal atrial fibrillation) Atrial fibrillation documented in this encounter Care Teams Chrome Worker Relationship Specialty Start Date End Date Sharri Rosario APRN [address] [place] [address] PCP - General Family Medicine 06/01/22 documented as of this encounter
--- OUTSIDE RECORDS SUMMARY | 2024-02-21 12:25 | XMS_ITS | Encounter Summary ---
Author Organization [facility] [place] [address] Care Team Providers Care Bender Machine Operator Name Role Phone Sharri Rosario APRN Primary Care Provider [phone] Reason for Visit * Reason Onset Date Comments Results 05/23/2023 Parental VUS res olution testing Encounter Details Date Type Department Care Team (Late st Contact Info) Description 05/23/2023 [place] [phone] Rosalinda Kay [facility] GENETICS & [place] [address] Results (Parental VUS resolution testing) Social History Tobacco Use Types Packs/Day Years Used Date Smoking Tobacco: Former Cigarettes Passive Smoke Exposure: Past Sex and Gender Information Value Date Recorded Sex Assigned at Not on file Gender Identity Not on file Sexual Orientation Not on file documented as of this encounter Miscellaneous Notes * Telephone Encounter - Rosalinda Kay LGC - 05/23/2023 9:12 AM EST Images from the original note were not included. GENETICS - LAB FOLLOW-UP Roni Kory 1985 [id number] Provider: Rosalinda Kay MS, [facility] Reason for contact: Provide review of results from studies ordered in Roni in follow-up of genetictesting that was completed in his son. The results of the familial variant genetic testing ordered in Roni are complete and the results found that Roni and Paul share two of the four gene variants that were initially detected in [facility] genetic testing: RESULT: CARRIER One Pathogenic variant identified in ARSA. 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 Additional Variant(s) of Uncertain Significance identified. Clinical summary A Pathogenic variant, c.465+1G>A (Splice donor), was identified in ARSA. 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 Biochemical testing for arylsulfatase A (ARSA) enzyme activity and urine sulfatides should be considered in individuals with clinical suspicion of metachromatic leukodystrophy (PMIDs: 1408411, 4789211, 8943620). 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 This result is insufficient to cause autosomal recessive metachromatic leukodystrophy; however, carrier status does impact reproductive risk. Metachromatic leukodystrophy is a neuroprogressive lipid storage disorder caused by the accumulation of sulfatides in the nervous system. The accumulation results in the destruction of the myelin sheath surrounding nerves in both the central and peripheral nervous systems (PMID: 22922074, 35340366). Earlier onset forms generally become apparent during the second year of life with loss of developmental milestones, gait disturbances, muscle weakness, seizures, behavioral issues and peripheral neuropathy (PMID: 34376349, 5747500). Later onset forms often present initially with changes in behavior and/or psychiatric symptoms followed by muscle weakness, peripheral neuropathy, tremor, seizures an d dementia (PMID: 9579397, 2243169, 71282524). Sulfatide accumulation also occurs in visceral organs and has been associated with gallbladder dysfunction and pathology (PMID: 23909644, 86575876, 76203474). Affected individuals exhibit decreased arylsulfatase A (ARSA) activity in various tissues, leukocytes and fibroblasts, along with increased urinary sulfatide excretion (PMID: 3769629, 9612142, 6294327). Biological relatives have a chance of being a carrier for or being at risk for autosomal recessive metachromatic leukodystrophy. Testing should be considered if clinically appropriate. The chance of having a child with autosomal recessive metachromatic leukodystrophy depends on the carrier state ofthis individual's partner. A Variant of Uncertain Significance, c.3158C>A (p.[id number]), was identified in KCNT1. The KCNT1 gene is associated with autosomal dominant nocturnal frontal lobe epilepsy (MedGen UID: 569940) and developmental and epileptic encephalopathy, also known as early infantile epileptic encephalopathy (MedGen UID: 101099). Not all variants present in a gene cause disease. The clinical significance of the variant(s) identified in this gene is uncertain. Until this uncertainty can be resolved, caution should be exercisedbefore using this result to inform clinical management decisions. Available evidence and segregation data are insufficient to reclassify the variant(s) of uncertain significance at this time. 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 It is expected to disrupt RNA splicing. Variants that disrupt the donor or acceptor splice site typically lead to a lossof protein function (PMID: 98949185), and ildh-kz-tkbqkxyd variants in ARSA are known to be pathogenic (PMID: 2456089, 58749832). This variant is present in population databases ([id number], gnomAD 0.1%), and has an allele count higher than expected for a pathogenic variant. Disruption of this splice site has been observed in individuals with metachromatic leukodystrophy (PMID: 7645881, 2178576, 0626165, 3595826, 39253286, 76589462, 62702694, 99690130). ClinVar contains an entry for this variant (Variation ID: [id number]). Algorithms developed to predict the effect of sequence changes on RNA splicing suggest that this variant may disrupt the consensus splice site. 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 This variant is present in population databases ([id number], gnomAD 0.002%). This variant has not been reported in the literature in individuals affected with KCNT1-related conditions. ClinVar contains an entry for this variant (Variation ID: [id number]). An algorithm developed to predict the effect of missense changes on protein structure and function (PolyPhen-2) suggests that this variant is likely to be tolerated. In summary, the available evidence is currently insufficient to determine the role of this variant in disease. Therefore, it has been classified as a Variant of Uncertain Significance. The carrier risk for ARSA pathogenic variants in Caucasians is estimated at about 1/130 people. Thepresence of a single pathogenic variant in this gene infers unaffected carrier status. Symptoms would only be present if there were also a second pathogenic variant in the remaining copy of the gene.Additional testing would only be needed if an individual showed symptoms suggestive of metachromatic leukodystrophy. The second variant shared between Roni and Paul and the case KCNT1 gene is classified as uncertain. However, in review of the clinical condition this gene causes and given that Roni has no seizures or developmental diagnoses and since Paul has an alternative genetic diagnosis accounting for hissymptoms, we expect that that this variant is benign. No further testing is planned and follow-up in genetics for Roni is not needed. Rosalinda Kay, MS, [facility] Licensed Genetic Counselor [phone] documented in this encounter Plan of Treatment Upcoming Encounters Date Type Department Care Team (Late st Contact Info) Description 02/29/2024 7:30 PM EDT Procedure visit Sleep Center at [facility] [address] [place] [address] 04/11/2024 1:00 PM EST Office Visit Cardiology at [address] [address] Gerardo Lobo MD [facility] [place] [address] documented as of this encounter Visit Diagnoses Diagnosis Family history of genetic disorder Family history of other condition documented in this encounter Care Teams Bender Machine Operator Relationship Specialty Start Date End Date Sharri Rosario APRN [address] [place] [address] PCP - General Family Medicine 06/01/22 documented as of this encounter
--- OUTSIDE RECORDS SUMMARY | 2024-02-21 12:25 | XMS_ITS | Encounter Summary ---
Author Organization [facility] [place] [address] Care Team Providers Care Community Development Worker Name Role Phone Sharri Rosario APRN Primary Care Provider [phone] Reason for Visit * Reason Onset Date Comments Questions 06/19/2023 Encounter Details Date Type Department Care Team (Late st Contact Info) Description 06/19/2023 Telephone Cardiology at [address] [phone] Shilpa Garza RN Questions Social History Tobacco Use Types Packs/Day Years Used Date Smoking Tobacco: Former Cigarettes Passive Smoke Exposure: Past Sex and Gender Information Value Date Recorded Sex Assigned at Not on file Gender Identity Not on file Sexual Orientation Not on file documented as of this encounter Miscellaneous Notes * Telephone Encounter - Shilpa Garza RN - 06/19/2023 3:15 PM EST Roni called today to report that for the past month or so, he feels as if he has been experiencingincreased frequency of atrial fibrillation events. He has been journaling these episodes where he feels he goes into a.fib and states it has been happening daily or every other day. He stated that hehas not been able to measure his heart rate accurately during these episodes but feels he is slightly tachycardic during them. He denies shortness of breath, chest pain/pressure or feelings of impending syncope. Roni also asked if he could possibly be seen sooner than his next scheduled visit (07/16/23) with and if he could schedule his ablation that was recommended at his last visit. This RN educated the patient that there is likely not availability before the date of his appointment but that we would let know that he is experiencing a possible increase in frequency of a.fib occurrences. He was also educated to seek care in a local ER if he feels any chest pressure/pain, dizziness/syncope, shortness of breath at rest, heart rate 120 or over during a run of a.fib lasting more than 30-60 minutes. Roni verbalized understanding and thanked this RN for the assistance. Lastly, Roni was informed that his ablation will be scheduled likely at his next visit and a procedure nurse will be in contact with him to answer any questions/concerns he may have for preparation fo r the procedure. documented in this encounter Plan of Treatment Upcoming Encounters Date Type Department Care Team (Late st Contact Info) Description 02/29/2024 7:30 PM EDT Procedure visit Sleep Center at [address] [address] 04/11/2024 1:00 PM EST Office Visit Cardiology at [address] [address] Gerardo Lobo MD [facility] [place] [address] documented as of this encounter Visit Diagnoses Not on filedocumented in this encounter Care Teams Community Development Worker Relationship Specialty Start Date End Date Sharri Rosario APRN [address] [place] [address] PCP - General Family Medicine 06/01/22 documented as of this encounter
--- OUTSIDE RECORDS SUMMARY | 2024-02-21 12:25 | XMS_ITS | Encounter Summary ---
Author Organization [facility] [place] [address] Care Team Providers Care Cloud Physicist Name Role Phone Sharri Rosario APRN Primary Care Provider [phone] Encounter Details Date Type Department Care Team (Late st Contact Info) Description 07/03/2023 Orders Only Cardiology at [address] [phone] Abel Benson MD [facility] [place] [address] Social History Tobacco Use Types Packs/Day Years [...] PM EDT Procedure visit Sleep Center at [facility] [address] [place] [address] 04/11/2024 1:00 PM EST Office Visit Cardiology at [address] [address] Gerardo Lobo MD [facility] [place] [address] documented as of this encounter Visit Diagnoses Not on filedocumented in this encounter Care Teams Cloud Physicist Relationship Specialty Start Date End Date Sharri Rosario APRN [address] [place] [address] PCP - General Family Medicine 06/01/22 documented as of this encounter
--- OUTSIDE RECORDS SUMMARY | 2024-02-21 12:25 | XMS_ITS | Encounter Summary ---
[facility] Organization [facility] [place] [address] Care Team Providers Care Paper Tube Machine Operator Name Role Phone Sharri Rosario APRN Primary Care Provider [phone] Encounter Details Date Type Department Care Team (Late st Contact Info) Description 06/30/2023 Telephone Cardiology at [address] [address] Anna Nava PA [facility] [place] [address] Social History Tobacco Use Types Packs/Day Years Used Date Smoking Tobacco: Former Cigarettes Passive Smoke Exposure: Past Sex and Gender Information Value Date Recorded Sex Assigned at Not on file Gender Identity Not on file Sexual Orientation Not on file documented as of this encounter Miscellaneous Notes * Telephone Encounter - Anna Nava PA - 06/30/2023 10:44 AM EST Received a phone call from apron operator for cardiology patient concern. Mr. Horn is requesting his flecainide prescription be renewed through home delivery service(insurance preference and preferred for cost). He has supply for 4 more days but wanted to be sure this can be delivered before he runs out prompting his call today. Refill sent for 1 month. Recommended he discuss flecainide duration and future refills with Dr. Benson/Dr. Lane as his ablation is scheduled for 07/16/23. All concerns were answered. Anna Nava PA-C 06/30/2023 documented in this encounter Plan of Treatment Upcoming Encounters Date Type Department Care Team (Late st Contact Info) Description 02/29/2024 7:30 PM EDT Procedure visit Sleep Center at [facility] [address] [place] [address] 04/11/2024 1:00 PM EST Office Visit Cardiology at [address] [address] Gerardo Lobo MD [facility] [place] [address] documented as of this encounter Visit Diagnoses Not on filedocumented in this encounter Care Teams Paper Tube Machine Operator Relationship Specialty Start Date End Date Sharri Rosario APRN [address] [place] [address] PCP - General Family Medicine 06/01/22 documented as of this encounter
--- OUTSIDE RECORDS SUMMARY | 2024-02-21 12:25 | XMS_ITS | Encounter Summary ---
Author Organization [facility] [place] [address] Care Team Providers Care Record Label Intern Name Role Phone Sharri Rosario APRN Primary Care Provider [phone] Reason for Visit * Auth/Cert (Routine) Specialty Diagnoses / Procedures Referred By Contac t Referred To Contact Diagnoses PAF (paroxysmal atrial fibrillation) PAF (paroxysmal atrial fibrillation) [I48.0] Procedures ELECTROPHYSIOLOGY PROCEDURE TRANSESOPHAGEAL ECHO DURING CATH/EP PROCEDURE Abel Benson MD [facility] [place] [address] [facility] Referral ID Status Reason Start Date Expiration Date Visits Re quested Visits Authorized [id number] 1 1 Encounter Details Date Type Department Care Team (Late st Contact Info) Description 07/16/2023 9:49 AM EDT Anesthesia Event [place] [id number] Nora Dan MD [facility] [place] [address] Roland Sanders CRNA [facility] [place] [address] Anesthesia Record Procedure Summary Procedure Name Responsible Anesthesiologist Anesthesia Start Time Anesthesia Stop Time ELECTROPHYSIOLOGY PROCEDURE Nora Dan MD 07/16/23 0949 07/16/23 1529 Events Date Time Event Comment 07/16/2023 0856 0949 AN Verify 0949 Start 0949 An Start Data 0958 An Induction 1000 An Intubation 1001 Anesthesia Ready 1234 Break/Relief In I assumed ca re for Break Relief before which we: 1. Identified the patient 2. Identified the responsible provider(s) 3. Reviewed the pertinent medical history 4. Discussed the surgical plan and course 5. Reviewed intra-op anesthesia management and issues during anesthesia 6. Set expectations for the relief (and/or post-procedure) period 7. Allowed opportunity for questions and acknowledgement of understanding Ruby Higuera CRNA 1301 Break/Relief Out 1520 Extubation/LMA Out 1529 an stop data 1529 Recovery or ICU Handoff Molly ent care was transferred to the destination unit staff after review of the patient's medical history, current anesthetic/surgical status and plan, according to the Provider Handoff Checklist. 1529 Stop Meds Name Total Midazolam 2 mg fentaNYL 100 mcg IV Lidocaine 50 mg Rocuronium 130 mg PHENYLephrine 480 mcg ePHEDrine 5 mg Ondansetron 8 mg Glycopyrrolate 0.6 mg heparin 24,000 Units heparin INF 10,541.67 Units PHENYLephrine INF 2,250 mcg protamine 35 mg sugammadex 300 mg lactated ringers infusion 1,300 mL lactated ringers 0 mL * Agents Name O2 Sevoflurane (et) * Blood No blood administrations on file. Lines, Drains, and Airways Type Details Placement Removal PIV 07/16/23; 0911; 20 g auge; median vein (underside of arm), right; MICHEL franklin; distraction, tolerated well, appears comfortable; 07/17/23; 1156 07/16/23 0911 by Meri Rivera RN 07/17/23 1156 by Yoseph Madison, RN ETT Mask Ventilation: Benjamin angela (1); ETT Type: Cuffed, Oral; ETT Size: 7.5 mm; Mac Blade: 4; Notes: Asleep, Pre-O2; Attempts: 1; Laryngoscopy Grade: 1; Secured at Teeth: 23 cm; Inserted by: PILI; Removal Date: 07/16/23; Removal Time: 15207/16/23 0958 by Roland Sanders CRNA 07/16/23 1520 by Roland Sanders CRNA PIV 07/16/23; 1001; 18 g auge; dorsal arch vein (top of hand), left; Anatomical Landmarks; US Not Used; Ni; 07/17/23; 1156 07/16/23 1001 by Nora Dan MD 07/17/23 1156 by Yoseph Madison RN Arterial Line 07/16/23; 1001; radi al artery, right; 20 gauge; Anatomical Landmarks; US Not Used; continuous blood pressure monitoring, frequent blood gas measurement; Sanders; Sterile Gloves, Sterile Prep; 07/16/23; 1628 07/16/23 1001 by Nora Dan MD 07/16/23 1628 by Hannah Carroll RN LDA Cath/EP Sheath 07/16/23; 1048; 16 F rench (Fr) (8.5 F up sized to 16F); Proximal, Right, Anterior; Femoral; Venous 07/16/23 1048 by Vesta Stanton RN 07/16/23 1501 by Vesta Stanton RN LDA Cath/EP Sheath 07/16/23; 1049; 5.5 Burmese (Fr); Proximal, Right, Anterior; Femoral; Venous 07/16/23 1049 by Vesta Stanton RN 07/16/23 1501 by Vesta Stanton RN LDA Cath/EP Sheath 07/16/23; 1049; 7 Fr ench (Fr); Left, Proximal, Anterior; Femoral; Venous 07/16/23 1049 by Vesta Stanton RN 07/16/23 1502 by Vesta Stanton RN LDA Cath/EP Sheath 07/16/23; 1049; 9 Fr ench (Fr); Left, Proximal, Anterior; Femoral; Venous 07/16/23 1049 by Vesta Stanton RN 07/16/23 1502 by Vesta Stanton RN documented in this encounter Social History Tobacco Use Types Packs/Day [...] on file documented as of this encounter OR Notes * Anesthesia Postprocedure Evaluation - Nora Dan MD - 07/16/2023 4:20 PM EDT Department of Anesthesiology Post-procedure Note Patient: Roni Horn Procedure Summary Date: 07/16/23 Room / Location: [facility] B-LAB ROOM 4 / [facility] EP LABS Anesthesia Start: 948 Anesthesia Stop: 1528 Procedures: ELECTROPHYSIOLOGY PROCEDURE TRANSESOPHAGEAL ECHO DURING CATH/EP PROCEDURE Diagnosis: PAF (paroxysmal atrial fibrillation) (PAF (paroxysmal atrial fibrillation) [I48.0]) Providers: Abel Benson MD; Rod Anderson MD Responsible Provider: Nora Dan MD Anesthesia Type: general ASA Status: 3 All Anesthesia Providers: Anesthesiologist: Nora Dan MD PUNCH OUT CREW MEMBER: Roland Sanders CRNA Vitals Value Taken Time BP 127/74 07/16/23 1615 Temp 36.5 ??C (97.7 ??F) 07/16/23 1531 Pulse 58 07/16/23 1619 Resp 19 07/16/23 1619 SpO2 100 % 07/16/23 1619 Pain Level 7 07/16/23 1550 Vitals shown include unfiled device data. Patient Location: PACU/[facility] Level of Consciousness: Conscious but Sleepy Pain Management: Satisfactory Analgesia PONV: None Cardiovascular Status: At Baseline and Hemodynamically Stable Respiratory Status: Stable Respiratory Status and Supplemental O2 (NC or FM) Postoperative Fluid Status: Intravascular EUvolemia Possible Anesthetic Complications: NONE apparent at time of evaluation Final Primary Anesthesia Type: General (The anesthetic type performed was the same as planned.) Comments: Pt c/o pleuritic chest pain on the right (lower ribs and upper shoulder) and is expressing increasing anxiety from inability to comfortably take a deep breath. Pt says that prior to this procedure, he was experiencing similar symptoms, but on the left side of his chest. Per bedside nurse,pt has already been evaluated by the EP team and discomfort was thought to be 2/2 positioning during the case. Lung sounds are CTABL and pt had excellent chest excursion. I spoke with our PACU resident who will order a small dose of ativan (pt and bedside AIRPLANE PATROLLER in agreement) as well as a CXR to r/o a pneumothorax. Nora Dan MD * Anesthesia Preprocedure Evaluation - Nora Dan MD - 07/14/2023 3:25 PM EDT Pre-Anesthesia Evaluation for: Roni beal 37 y.o. male. Procedure(s): ELECTROPHYSIOLOGY PROCEDURE TRANSESOPHAGEAL ECHO DURING CATH/EP PROCEDURE Patient Active Problem List Diagnosis Date Noted ??? PAF (paroxysmal atrial fibrillation) 07/04/2022 No past medical history on file. No past surgical history on file. Social History Tobacco Use ??? Smoking status: Former Types: Cigarettes Passive exposure: Past ??? Smokeless tobacco: Not on file Substance Use Topics ??? Alcohol use: Not on file Social History Substance and Sexual Activity Drug Use Not on file Allergies Allergen Reactions ??? Codeine Nausea Only Medications: MAR and/or home medications have been reviewed. Physical Exam: Preprocedure Vitals Current as of 07/14/23 1525 No BP, pulse, respiration, SpO2, or temperature recorded. Height: Weight: BMI: IBW: Airway Assessment: Mallampati: II TM distance: >3 FB Neck ROM: full Cardiovascular Assessment: Rhythm: irregular Rate: normal Pulmonary Assessment: unlabored breathing Dental Assessment: Misc Assessment: Last Filed Perioperative Cognitive Screening None Anesthesia Plan: ASA 3 general, with a(n) intravenous induction 37 y.o.male here for Afib ablation MEDICAL HISTORY is also significant for - otherwise healthy - eGFR>80 ANESTHESIA HISTORY: - Past GA: none. No family history of fever/ after anesthesia - Airway: no past records STUDIES TTE: LVEF45%, RV systolic function mildly decreased. No significant valve disease EKG:early repol. NSR. LHC/RHC:- Holter: 13% afib. Few symptomatic runs of svt/nsvt ALLERGIES -- Codeine -- Nausea Only ANESTHETIC PLAN - GA, ETT - invasive BP monitoring with arterial line - Multimodal analgesia and PONV prophylaxis Region - Intrathoracic Cardiac Informed Consent: Anesthetic plan and risks discussed with patient. Use of blood products discussed with patient who consented to blood products. Plan discussed with PUNCH OUT CREW MEMBER and attending. Anesthesia Screening documented in this encounter Miscellaneous Notes * Addendum Note - Nora Dan MD - 07/16/2023 4:48 PM EDT Addendum created 07/16/23 1648 by Nora Dan MD Clinical Note Signed documented in this encounter Plan of Treatment Upcoming Encounters Date Type Department Care Team (Late st Contact Info) Description 02/29/2024 7:30 PM EDT Procedure visit Sleep Center at [facility] [address] [place] [address] 04/11/2024 1:00 PM EST Office Visit Cardiology at [address] [address] Gerardo Lobo MD [facility] [place] [address] documented as of this encounter Visit Diagnoses Not on filedocumented in this encounter Administered Medications Inactive Administered Medications - up to 3 most recent administrations Medication Order MAR Action Action Date Dose Rate Site ePHEDrine sulfate (5 mg/mL) multi-dose injection Intravenous, PRN, Starting on Sun07/16/23 at 1116, Until Sun07/16/23 at 1529, Anesthesia Intra-op, Routine Given 07/16/2023 11:16 AM EDT 5 mg fentaNYL (pf) (50 mcg/mL) multi-dose injection Intravenous, PRN, Starting on Sun07/16/23 at 0958, Until Sun07/16/23 at 1529, Anesthesia Intra-op, Routine Given 07/16/2023 3:12 PM EDT 50 mcg Given 07/16/2023 9:58 AM EDT 50 mcg glycopyrrolate (Robinul) (0.2 mg/mL) multi-dose injection Intravenous, PRN, Starting on Sun07/16/23 at 1118, Until Sun07/16/23 at 1529, Anesthesia Intra-op, Routine Given 07/16/2023 1:36 PM EDT 0.2 mg Given 07/16/2023 12:17 PM EDT 0.2 mg Given 07/16/2023 11:18 AM EDT 0.2 mg heparin (porcine) (1,000 units/mL) injection Intravenous, PRN, Starting on Sun07/16/23 at 1047, Until Sun07/16/23 at 1524, Anesthesia Intra-op, Routine Given 07/16/2023 12:44 PM EDT 6,000 Un its Given 07/16/2023 11:05 AM EDT 6,000 Units Given 07/16/2023 10:47 AM EDT 12,000 Units heparin (porcine) 50 units/mL in sodium chloride 0.45% 500 mL infusion Intravenous, CONTINUOUS PRN, Starting on Sun07/16/23 at 1047, Until Sun07/16/23 at 1524, Anesthesia Intra-op, Routine Rate/Dose Change 07/16/2023 12:48 PM EDT 3,000 Units/hr 60 mL/hr Rate/Dose Change 07/16/2023 11:54 AM EDT 2,600 Units/hr 52 mL/hr Rate/Dose Change 07/16/2023 11:05 AM EDT 2,500 Units/hr 50 mL/hr lactated ringers infusion 1,000 mL, at 100 mL/hr, Intravenous, CONTINUOUS, Starting on Sun07/16/23 at 0930, Until Sun07/16/23 at 1726, Day of Surgery (Day of Procedure) New Bag 07/16/2023 3:14 PM EDT Restarted 07/16/2023 1:12 PM EDT New Bag 07/16/2023 9:45 AM EDT 1,000 mLs 100 mL/hr lactated ringers infusion Intravenous, CONTINUOUS PRN, Starting on Sun07/16/23 at 0958, Until Sun07/16/23 at 1529, Anesthesia Intra-op New Bag 07/16/2023 9:58 AM EDT lidocaine (pf) (Xylocaine) (20 mg/mL) 2% injection syringe Intravenous, PRN, Starting on Sun07/16/23 at 0958, Until Sun07/16/23 at 1529, Anesthesia Intra-op, Routine Given 07/16/2023 9:58 AM EDT 50 mg midazolam (pf) (Versed) (1 mg/mL) multi-dose injection Intravenous, PRN, Starting on Sun07/16/23 at 0949, Until Sun07/16/23 at 1529, Anesthesia Intra-op, Routine Given 07/16/2023 9:49 AM EDT 2 mg ondansetron (pf) (Zofran) (2 mg/mL) injection Intravenous, PRN, Starting on Sun07/16/23 at 1441, Until Sun07/16/23 at 1529, Anesthesia Intra-op, Routine Given 07/16/2023 2:41 PM EDT 8 mg PHENYLephrine (Reynold-Synephrine) (80 mcg/mL) in sodium chloride 0.9% 250 mL infusion Intravenous, CONTINUOUS PRN, Starting on Sun07/16/23 at 1311, Until Sun07/16/23 at 1529, Anesthesia Intra-op, Routine Rate/Dose Change 07/16/2023 2:02 PM EDT 10 mcg/min 7.5 mL/hr Restarted 07/16/2023 1:51 PM EDT 20 mcg/min 15 mL/hr Rate/Dose Change 07/16/2023 1:39 PM EDT 10 mcg/min 7.5 mL/ hr PHENYLephrine in NS (PF) (REYNOLD-SYNEPHRINE) 0.8 mg/10 mL (80 mcg/mL) multi-dose injection Syringe Intravenous, PRN, Starting on Sun07/16/23 at 1052, Until Sun07/16/23 at 1529, Anesthesia Intra-op, Routine Given 07/16/2023 1:11 PM EDT 80 mcg Given 07/16/2023 1:07 PM EDT 80 mcg Given 07/16/2023 12:40 PM EDT 80 mcg protamine (10 mg/mL) injection Intravenous, PRN, Starting on Sun07/16/23 at 1457, Until Sun07/16/23 at 1529, Anesthesia Intra-op, Routine Given 07/16/2023 3:00 PM EDT 30 mg Given 07/16/2023 2:57 PM EDT 5 mg rocuronium (Zemuron) (10 mg/mL) multi-dose injection Intravenous, PRN, Starting on Sun07/16/23 at 0958, Until Sun07/16/23 at 1529, Anesthesia Intra-op, Routine Given 07/16/2023 1:56 PM EDT 10 mg Given 07/16/2023 12:44 PM EDT 20 mg Given 07/16/2023 11:06 AM EDT 30 mg sugammadex (Bridion) 100 mg/mL injection Intravenous, PRN, Starting on Sun07/16/23 at 1502, Until Sun07/16/23 at 1529, Anesthesia Intra-op, Routine Given 07/16/2023 3:02 PM EDT 300 mg documented in this encounter Care Teams Record Label Intern Relationship Specialty Start Date End Date Sharri Rosario APRN [address] [place] [address] PCP - General Family Medicine 06/01/22 documented as of this encounter
--- OUTSIDE RECORDS SUMMARY | 2024-02-21 12:25 | XMS_ITS | Encounter Summary ---
Author Organization [facility] [place] [address] Care Team Providers Care Intelligence Engineer Name Role Phone Sharri Rosario APRN Primary Care Provider [phone] Encounter Details Date Type Department Care Team (Latest Contact Info) Description 06/20/2023 Travel Social History Tobacco Use Types Packs/Day [...] PM EDT Procedure visit Sleep Center at [place] [address] [place] [address] 04/11/2024 1:00 PM EST Office Visit Cardiology at [address] [address] Gerardo Lobo MD [facility] [place] [address] documented as of this encounter Visit Diagnoses Not on filedocumented in this encounter Care Teams Intelligence Engineer Relationship Specialty Start Date End Date Sharri Rosario APRN [address] [place] [address] PCP - General Family Medicine 06/01/22 documented as of this encounter
--- OUTSIDE RECORDS SUMMARY | 2024-02-21 12:25 | XMS_ITS | Encounter Summary ---
Author Organization [facility] Address [facility] [place] [place] [address] Care Team Providers Care Oil Spraying Machine Operator Name Role Phone Sharri Rosario APRN Primary Care Provider [phone] Reason for Referral * Consultation (Routine) - Closed Specialty Diagnoses / Procedures Referred By Contac t Referred To Contact Sleep Center Diagnoses Paroxysmal atrial fibrillation Vik Lane MD [facility] [place] [address] Unknown None Referral ID Status Reason Start Date Expiration Date V isits Requested Visits Authorized [id number] Closed Consult, Test & Treat Non PCP 03/29/2023 09/25/2023 1 1 Reason for Visit * Consultation (Routine) - Closed Specialty Diagnoses / Procedures Referred By Contact Referred To Contact Electrophysiology / Cardiology Diagnoses Atrial arrhythmia Atrial arrhythmias w/ significant SOB when in Afib. Pt frustrated by afib episodes happening at times weekly. Recent Card consult (06/2022-[facility]) EP was recc, but referral not made. Sharri Rosario APRN [address] [place] [address] [facility] [address] [place] [phone] Referral ID Status Reason Start Date Expiration Date V isits Requested Visits Authorized [id number] Closed Consult, Test & Treat PCP Updated and/or Approved 07/27/2022 07/27/2023 6 6 Encounter Details Date Type Department Care Team (Latest Contact Info) Description 03/28/2023 1:00 PM EST TH Visit (TeleHealth) Cardiology at [address] [address] MD [facility] [place] [address] Paroxysmal atrial fibrillation Social History Tobacco Use Types Packs/Day Years Used Date Smoking Tobacco: Former Cigarettes Passive Smoke Exposure: Past Sex and Gender Information Value Date Recorded Sex Assigned at Not on file Gender Identity Not on file Sexual Orientation Not on file documented as of this encounter Progress Notes * Vik Lane MD - 03/28/2023 1:00 PM EST Images from the original note were not included. Section of Cardiology/Cardiac Electrophysiology Clinical Cardiac Electrophysiology Consult Patient ID Roni Horn [id number] Roni Horn is referred to the EP clinic by Sharri Rosario NP C/c: AFib History Mr. Horn and I met today via telephone visit as referred by Sharri Rosario for a discussion of atrial fibrillation. We met via telephone today as Mr. Horn's son is under the weather with RSV and he may have contracted this as well. I reached Mr. Horn by phone this afternoon but in less than a minute our call was disconnected. I called back his number but no one picked up and I left a voicemail, for him to call me back at my office. We then reconnected in about 20 minutes. Mr. Horn, When in AFib, feels like a panic attack with anxiety. Also heart racing sensation, exhaustion. Was in AFib for 5 days once, before it spontaneously cardioverted. Has AFib at least once a week, sometimes every other day. Will wake up with it. Currently takes propranolol 160 mg daily and buspirone and aspirin 81 mg daily. He notes heart rates in the 40s bpm range at times but does not have significant symptoms at this time. No syncope. No syncope, no chest pain. Rare lightheadedness, usually thinks this is related to propranolol and low blood pressure. Has mostly eliminated alcohol intake as he has noticed an associated with even a small amount of alcohol and the onset of AFib. Echo in 2020 was normal. I do not have any sinus rhythm EKGs for review. EKGs in 202 show atrial fibrillation with normal QRS duration. Zio patch performed recently shows a roughly 13% AFib burden. No overt atrial flutter. Fairly normal heart rate distribution. He saw Dr. Sahu in 2020 at which point they considered pill in the pocket flecainide but this wasultimately deferred at that time. Problem List Patient Active Problem List Diagnosis PAF (paroxysmal atrial fibrillation) Review of Systems ROS See above. All other review of systems negative. Meds Current Outpatient Medications Medication Sig Dispense Refill propranoloL (Inderal LA) 160 mg ER 24 hr capsule Take 1 capsule by mouth daily. 90 capsule 3 aspirin EC 81 mg Tablet, Delayed Release (E.C.) Take 81 mg by mouth daily. No current facility-administered medications for this visit. Social History Social History Socioeconomic History Marital status: Spouse name: Not on file Number of children: Not on file Years of education: Not on file Highest education level: Not on file Occupational History Not on file Tobacco Use Smoking status: Former Types: Cigarettes Passive exposure: Past Smokeless tobacco: Not on file Substance and Sexual Activity Alcohol use: Not on file Drug use: Not on file Sexual activity: Not on file Other Topics Concern Not on file Social History Narrative Not on file Social Determinants of Health Financial Resource Strain: Not on file Food Insecurity: Not on file Transportation Needs: Not on file Physical Activity: Not on file Intimate Partner Violence: Not on file Housing Stability: Not on file Family History No family history on file. Exam none, telephone visit I have personally reviewed all pertinent labs, cardiac rhythm monitors and imaging Impression/Plan Mr. Horn presents with symptomatic, paroxysmal atrial fibrillation. [id number] score is 0, though he remarks at times having borderline high blood pressure measurements. We discussed at length and in detail atrial fibrillation, its natural history and its pathophysiology. We discussed the role of anticoagulation in stroke prevention and the assessment of stroke risk by the [id number] score. We discussed rate versus rhythm control and the results of the AFFIRM trialand that the role of rhythm control is largely to control symptoms. We discussed rhythm control options including antiarrhythmic drugs and ablation. We also spoke about the lifestyle factors that canimpact AF frequency: obstructive sleep apnea, overweight, low amount of exercise and alcohol intake. We spoke of the procedural details, risks, benefits and alternatives of atrial fibrillation ablation. Major complications from a first procedure occur in approximately 6% of patients. ~ 1.5 % risk of tamponade, esophageal injury 0.1% or less, vagus nerve damage < 1%, phrenic nerve damage < 1%, vascular complications ~ 2%, CVA ~ 0.5%, Pericarditis ~ 30%, 0.1% 15 % of patients have more frequent AF in the post ablation period. The blanking period occurs for 3 months post-procedure during which AF may come and go but does not necessarily indicate proceduralfailure. 20-40% of patients require repeat atrial fibrillation ablation, but this is generally deferred for over three months after the index procedure. All of the patient's questions were addressed. For now, Mr. Horn wishes to consider AF ablation as well as medication. If he were to go the medication route, I favor standing flecainide, starting at 50 mg twice a day. I also think he is an excellent ablation candidate. He also is most focused on his son's health at the present time, and sohe needs some free time to consider these options. For now, I will refer him to a sleep study and follow up with him in 3 months to see how he is doing. Consider follow up in [facility] with me Vik Lane MD 30 total minutes were spent on this encounter for patient counseling, medical record review, note entry, placing referral Cc: Sharri Rosario APRN documented in this encounter Plan of Treatment Upcoming Encounters Date Type Department Care Team (Late st Contact Info) Description 02/29/2024 7:30 PM EDT Procedure visit Sleep Center at [facility] [address] [place] [address] 04/11/2024 1:00 PM EST Office Visit Cardiology at [address] [address] Gerardo Lobo MD [facility] [place] [address] Scheduled Referrals Name Type Priority Associated Diagnoses Orde r Schedule Referral to Sleep Disorders Center Outpatient Referral Routine Paroxysmal atrial fibrillation Ordered: 03/29/2023 documented as of this encounter Visit Diagnoses Diagnosis Paroxysmal atrial fibrillation Atrial fibrillation documented in this encounter Care Teams Oil Spraying Machine Operator Relationship Specialty Start Date End Date Sharri Rosario APRN [address] [place] [address] PCP - General Family Medicine 06/01/22 documented as of this encounter
--- OUTSIDE RECORDS SUMMARY | 2024-02-21 12:25 | XMS_ITS | Encounter Summary ---
Author Organization [facility] Address [facility] [place] [address] Care Team Providers Care Real Estate Assistant Name Role Phone Sharri Rosario APRN Primary Care Provider [phone] Encounter Details Date Type Department Care Team (Late st Contact Info) Description 07/04/2022 4:00 PM EST Office Visit Cardiology at [address] [address] Ambrose Saenz MD [facility] [place] [address] Danny Cherry Jr., MD [facility] [place] [address] PAF (paroxysmal atrial fibrillation) Social History Tobacco Use Types Packs/Day Years Used Date Smoking Tobacco: Former Cigarettes Passive Smoke Exposure: Past Tobacco Cessation:Counseling Given: Not Answered Sex and Gender Information Value Date Recorded Sex Assigned at Not on file Gender Identity Not on file Sexual Orientation Not on file documented as of this encounter Last Filed Vital Signs Vital Sign Reading Time Taken Comments Blood Pressure 149/89 07/04/2022 4:03 PM EST Pulse 82 07/04/2022 4:03 PM EST Temperature - - Respiratory Rate - - Oxygen Saturation 99% 07/04/2022 4:03 PM EST Inhaled Oxygen Concentration - - Weight 92.8 kg (204 lb 8 oz) 07/04/2022 4:03 PM EST Height 195.6 cm (6' 5) 07/04/2022 4:03 PM EST Body Mass Index 24.25 07/04/2022 4:03 PM EST documented in this encounter Progress Notes * Danny Cherry Jr., MD - 07/04/2022 4:00 PM EST Images from the original note were not included. [facility] [address], [place] [address] Roni Horn [id number] 07/04/2022 REFERRING PROVIDER: Sharri Rosario HISTORY OF PRESENT ILLNESS: 36 yo gentleman w/ a pmh sig for MDD and pAF presenting for cardiology f/u. AF initially occurred about 10 years ago, which presented as palpitations. It seemed to go away, and then came back, thought to be related to wellbutrin. He was started on aspirin and metoprolol PRN.Episodes typically occur at night, a couple times per month. Exercise seems to help. Has had episodes lasting more than 24 hours, which is new. He feels like exercising is difficult on metoprolol and it bothers him. Has been checking his BP at home, and averaging 130/80. The pt denies headaches, dizziness, nausea, vomiting, changes in vision, chest pain/pressure, diaphoresis, sob, orthopnea, RUIZ, changes in micturition/defecation, JUAN, or weight gain. 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 PHYSICAL EXAMINATION: Vital Signs: BP 149/89 (BP Location (NBP): Left arm, Patient Position: Sitting) Pulse 82 Ht 195.6 cm (6' 5) Wt 92.8 kg (204 lb 8 oz) SpO2 99% BMI 24.25 kg/m?? General - No acute distress. Well-groomed/nourished. Speech is normal HEENT - EOMI. No scleral icterus. Noninjected. Moist membranes. No cervical LAD Respiratory: Clear to auscultation bilaterally. Good effort/excursion. Cardiac - RRR, normal S1/S2, no audible murmur, gallop or rubs. No JVD. No JUAN. Abdomen - Soft, nontender/nondistended, normal active bowel sounds. Extremities - Warm. No clubbing or cyanosis. Radial Pulses: 2+ B/L Neuro - Limited exam. No deficits. DATA: CBC: No results for input(s): WBC, HGB, PLATELET in the last 7068 hours. Chemistry: No results for input(s): NA, K, CL, CO2, BUN, CREATININE, GLUCOSE in the last 7068 hours. No results for input(s): CALCIUM, MAGNESIUM, PHOS in the last 7068 hours. LFT's: No results for input(s): BILITOT, BILIDIR, ALBUMIN, ALKPHOS, ALT, AST in the last 7068 hours. Coags: No results for input(s): PT, INR, PTT, FIBRINOGEN, DDIMER in the last 168 hours. Invalid input(s): THROMBIN TIME Cardiac enzymes: No results for input(s): TROPONINT, CK in the last 7068 hours. Endocrine: No results for input(s): TSH, CORTISOL in the last 7068 hours. Invalid input(s): [id number] Heme: No results for input(s): LDH, HAPTOGLOBIN, URICACID in the last 168 hours. Lipids: Lipid Panel Echocardiogram 02/17: ASSESSMENT + PLAN: 36 yo gentleman w/ a pmh sig for anxiety/depression and pAF presenting for cardiology f/u. AF burden seems to be increasing and is bothersome. He does not like metoprolol due to the limited ability to exercise. He would like to try another medication. We discussed several optionsand have settled on trial of propanolol. Should this not work, we can consider flecainide. BP at home has been borderline normal and I suspect w/ a BB onboard it will be WNL. pAF: -Propanolol long acting 60 mg QD Elevated BP reading: -home checks -Propanolol as above Thank you for allowing us to participate in the care of this patient. The patient was seen and discussed with attending physician. Danny Cherry Cardiovascular Medicine Fellow * Ambrose Saenz MD - 07/04/2022 4:00 PM EST Images from the original note were not included. Cardiology Staff Addendum: This patient was seen today and personally interviewed and examined. Agree with documentation by Dr. Cherry, which I have reviewed and independently confirmed. Briefly, having palpitations for a number of years and more recently was diagnosed with a bit of atrial fibrillation about a year ago. He is managed with aspirin and as needed metoprolol. In the last few months he stopped his Wellbutrin and was doing a little better. He still has paroxysms that are sometimes lasting 24 hours and are bothersome to him. He is drinking couple cups of coffee per day. He is not taking alcohol beverages. He is active and enjoys running and basketball. Typically he has found that aerobic exercise will help h im break an episode when it occurs. His exam today is unremarkable and accurately documented by Dr. Cherry. Assessment: He has paroxysmal atrial fibrillation. We talked about potential benefit from reducing or discontinuing caffeine. He is interested in seeing whether a different beta-akhil may help withthe symptoms. We explained that propranolol may have anti-inflammatory effects and also slow and make the atrial fibrillation less noticeable. He wants to give this a try. Another alternative would be to treat him with flecainide. Ambrose Saenz MD, FA, [facility] documented in this encounter Plan of Treatment Upcoming Encounters Date Type Department Care Team (Late st Contact Info) Description 02/29/2024 7:30 PM EDT Procedure visit Sleep Center at [facility] [address] [place] [address] 04/11/2024 1:00 PM EST Office Visit Cardiology at [address] [address] Gerardo Lobo MD [facility] [place] [address] documented as of this encounter Visit Diagnoses Diagnosis PAF (paroxysmal atrial fibrillation) Atrial fibrillation documented in this encounter Care Teams Real Estate Assistant Relationship Specialty Start Date End Date Sharri Rosario APRN [address] [place] [address] PCP - General Family Medicine 06/01/22 documented as of this encounter
--- OUTSIDE RECORDS SUMMARY | 2024-02-21 12:25 | XMS_ITS | Encounter Summary ---
Author Organization [facility] [place] [address] Care Team Providers Care Mobile Pet Groomer Name Role Phone Abraham Sharri CHEEK Primary Care Provider [phone] Reason for Visit * Reason Onset Date Comments Medication Refill 02/26/2023 Encounter Details Date Type Department Care Team (Late st Contact Info) Description 02/26/2023 [place] [phone] Danny Cherry Jr., MD [facility] [place] [address] Medication Refill Social History Tobacco Use Types Packs/Day Years [...] PM EDT Procedure visit Sleep Center at [facility] [address] [place] [address] 04/11/2024 1:00 PM EST Office Visit Cardiology at [address] [phone] Gerardo Lobo MD [facility] [place] [address] documented as of this encounter Visit Diagnoses Diagnosis PAF (paroxysmal atrial fibrillation) Atrial fibrillation documented in this encounter Care Teams Mobile Pet Groomer Relationship Specialty Start Date End Date Sharri Rosario APRN [address] [place] [address] PCP - General Family Medicine 06/01/22 documented as of this encounter
--- OUTSIDE RECORDS SUMMARY | 2024-02-21 12:25 | XMS_ITS | Encounter Summary ---
Author Organization [facility] [place] [address] Care Team Providers Care Full Stack Engineer Name Role Phone Sharri Rosario APRN Primary Care Provider [phone] Encounter Details Date Type Department Care Team (Latest Contact Info) Description 07/04/2022 Travel Social History Tobacco Use Types Packs/Day [...] PM EDT Procedure visit Sleep Center at [place] [address] [place] [address] 04/11/2024 1:00 PM EST Office Visit Cardiology at [address] [address] Gerardo Lobo MD [facility] [place] [address] documented as of this encounter Visit Diagnoses Not on filedocumented in this encounter Care Teams Full Stack Engineer Relationship Specialty Start Date End Date Sharri Rosario APRN [address] [place] [address] PCP - General Family Medicine 06/01/22 documented as of this encounter
--- OUTSIDE RECORDS SUMMARY | 2024-02-21 12:25 | XMS_ITS | Encounter Summary ---
Author Organization [facility] [place] [address] Care Team Providers Care Emotionally Impaired Teacher Name Role Phone Sharri Rosario APRN Primary Care Provider [phone] Reason for Referral * Diagnostic Test (Routine) - Closed Specialty Diagnoses / Procedures Referred By Contac t Referred To Contact Cardiology Diagnoses PAF (paroxysmal atrial fibrillation) Procedures Ziopatch 48 Hrs-15 Days Danny Cherry Jr., MD [facility] [place] [address] [facility] [place] [address] Referral ID Status Reason Start Date Expiration Date V isits Requested Visits Authorized [id number] Closed Specialty Service Requested 02/16/2023 02/16/2024 1 1 Encounter Details Date Type Department Care Team (Late st Contact Info) Description 02/16/2023 [place] [phone] Danny Cherry Jr., MD [facility] [place] [address] Social History Tobacco Use Types Packs/Day Years Used Date Smoking Tobacco: Former Cigarettes Passive Smoke Exposure: Past Sex and Gender Information Value Date Recorded Sex Assigned at Not on file Gender Identity Not on file Sexual Orientation Not on file documented as of this encounter Miscellaneous Notes * Telephone Encounter - Danny Cherry Jr., MD - 02/16/2023 9:22 AM EDT Called pt to discuss the initial plan for his Holter Monitor. He states that he's actually in the ED with his son who had a seizure. His AF has been better sincehe's been able to exercise again, and has not had an episode in a couple weeks. He is scheduled to see EP here on 03/28. The pt is now taking propanolol 120 mg QD. We discussed plans to do a zio patch in place of a Holter monitor as his AF burden has reduced significantly. We will also check some labs which can be drawn in the coming weeks. We will cancel his clinic appointment today. documented in this encounter Plan of Treatment Upcoming Encounters Date Type Department Care Team (Late st Contact Info) Description 02/29/2024 7:30 PM EDT Procedure visit Sleep Center at [address] [place] [address] 04/11/2024 1:00 PM EST Office Visit Cardiology at [address] [address] Gerardo Lobo MD [facility] [place] [address] documented as of this encounter Results * (ABNORMAL) TSH [place] (06/22/2023 4:44 PM EST) Thyroid Stimulating Hormone 4.31(H) 0.27 - 4.20 mcIU/mL [facility] Comment: Reference Interval (mcIU/mL): Females: ??First Trimester: 0.23-3.88 ??Second Trimester: 0.22-3.90 ??Third Trimester: 0.44-4.66 Blood 06/22/2023 4:44 PM EST 06/22/2023 4:54 PM EST Narrative Resulting Agency Comment Spec In Lab Vik Lane MD CHEMISTRY ORDERABLES Performing Organization Address [facility]/ZIP Co de Phone Number [facility] [place] [address] * Basic Metabolic Panel (non-fasting) (06/22/2023 4:44 PM EST) Glucose 113 65 - 199 mg/dL [facility] Comment:Diabetes: >=200 mg/d L plus symptoms Blood Urea Nitrogen 15 10 - 20 mg/dL [facility] Creatinine 1.05 0.80 - 1.50 mg/dL [facility] Sodium 143 135 - 145 mmol/L [facility] Potassium 4.7 3.5 - 5.0 mmol/L [facility] Comment: Please note: ??Patients with WBC >100,000 may have falsely elevated Potassium levels. ??For accurate Potassium quantification in these patients send serum separator tube (gold top) for subsequent determinations. ??Contact the Clinical Chemistry Laboratory if there are any questions. Chloride 103 98 - 107 mmol/L [facility] Carbon Dioxide 29 22 - 31 mmol/L [facility] Anion Gap 11 5 - 15 mmol/L [facility] Calcium 10.0 8.5 - 10.5 mg/dL [facility] Est Glomerular Filtration Rate 93 >=60 mL/min/1. 73 m?? [facility] Comment: This patient's estimated GFR was calculated using the 2020 CKD-EPI equation. The estimated GFR can vary from the measured GFR by up to 30% in the absence of rapidly changing kidney function. Assessment of the estimated GFR is not appropriate when creatinine concentrations are rapidly changing. For clinical situations in which a more precise estimate of GFR is necessary, consider alternative methods of GFR estimation such as a 24-hour urine creatinine clearance. Assignment of CKD stage 1-5 for patients with an eGFR near the transition point between stages may be based on clinical assessment of muscle mass and symptoms in addition to eGFR. Blood 06/22/2023 4:44 PM EST 06/22/2023 4:54 PM EST Narrative Resulting Agency Comment Spec In Lab Vik Lane MD CHEMISTRY ORDERABLES Performing Organization Address [facility] Co de Phone Number [facility] [place] [address] * Ziopatch 48 Hrs-15 Days (02/23/2023 6:54 AM EDT) Total Enrollment Period 11.0 IRHYTHM Anatomical Region Laterality Modality Other 02/23/2023 Narrative 03/20/2023 4:46 PM EST [facility] ? Zio Patch? Ambulatory Cardiac [...] Diagnosis PAF (paroxysmal atrial fibrillation) Atrial fibrillation PAF (paroxysmal atrial fibrillation) Atrial fibrillation documented in this encounter Care Teams Emotionally Impaired Teacher Relationship Specialty Start Date End Date Sharri Rosario APRN [address] [place] [address] PCP - General Family Medicine 06/01/22 documented as of this encounter
--- OUTSIDE RECORDS SUMMARY | 2024-02-21 12:25 | XMS_ITS | Encounter Summary ---
Author Organization [facility] [address] Care Team Providers Care Clearing Supervisor Name Role Phone Sharri Rosario APRN Primary Care Provider [phone] Encounter Details Date Type Department Care Team (Late st Contact Info) Description 02/02/2023 [place] [address] Danny Cherry Jr., MD [facility] [place] [address] PAF (paroxysmal atrial fibrillation) Social History Tobacco [...] PM EDT Procedure visit Sleep Center at [address] [phone] 04/11/2024 1:00 PM EST Office Visit Cardiology at [address] [phone] Gerardo Lobo MD [facility] [place] [address] documented as of this encounter Visit Diagnoses Diagnosis PAF (paroxysmal atrial fibrillation) Atrial fibrillation documented in this encounter Care Teams Clearing Supervisor Relationship Specialty Start Date End Date Sharri Rosario APRN [address] [place] [address] PCP - General Family Medicine 06/01/22 documented as of this encounter
--- OUTSIDE RECORDS SUMMARY | 2024-02-21 12:25 | XMS_ITS | Encounter Summary ---
Author Organization [facility] [place] [address] Care Team Providers Care Clerical Assigner Name Role Phone Sharri Rosario APRN Primary Care Provider [phone] Reason for Visit * Reason Onset Date Comments Medication Refill 03/24/2023 Encounter Details Date Type Department Care Team (Late st Contact Info) Description 03/24/2023 [place] [address] Danny Cherry Jr., MD [facility] [place] [address] Medication Refill Social History Tobacco Use Types [...] PM EDT Procedure visit Sleep Center at [place] [address] [place] [address] 04/11/2024 1:00 PM EST Office Visit Cardiology at [address] [address] Gerardo Lobo MD [facility] [place] [address] documented as of this encounter Visit Diagnoses Diagnosis PAF (paroxysmal atrial fibrillation) Atrial fibrillation documented in this encounter Care Teams Clerical Assigner Relationship Specialty Start Date End Date Sharri Rosario APRN [address] [place] [address] PCP - General Family Medicine 06/01/22 documented as of this encounter
--- OUTSIDE RECORDS SUMMARY | 2024-02-21 12:25 | XMS_ITS | Encounter Summary ---
Author [place] [address] Care Team Providers Care Face Man Name Role Phone Sharri Rosario APRN Primary Care Provider [phone] Reason for Referral * Diagnostic Test (Routine) - Closed Specialty Diagnoses / Procedures Referred By Contac t Referred To Contact Cardiology Diagnoses PAF (paroxysmal atrial fibrillation) Procedures Transesophageal Echocardiogram (WARREN) Jh Benson MD [facility] [place] [address] [facility] [place] [address] Referral ID Status Reason Start Date Expiration Date V isits Requested Visits Authorized [id number] Closed Specialty Service Requested 07/09/2023 07/08/2024 1 1 Encounter Details Date Type Department Care Team (Late st Contact Info) Description 07/04/2023 Orders Only Cardiology at [address] [phone] [facility] [place] [address] PAF (paroxysmal atrial fibrillation) Social [...] PM EDT Procedure visit Sleep Center at [address] [place] [address] 04/11/2024 1:00 PM EST Office Visit Cardiology at [address] [address] [facility] [place] [place] [address] documented as of this encounter Results * WARREN W LMTD SPECTRAL DOPPLER COLOR DOPPLER (07/16/2023 10:41 AM EDT) EF 55 HEARTLAB SYSTEM Anatomical Region Laterality Modality Cardiac Other 07/16/2023 9:43 AM EDT Narrative 07/16/2023 11:18 AM EDT ? Transesophageal Echocardiogram Report Name: MERYL HORN ?Study Date: 07/16/2023 09:43 AM ? Patient Location: EP EP04 A : 1985 ? Height: 77 in ? Account: [id number] Age: 37 yrs ? Weight: 205 lb Gender: Male ?BSA: 2.3 m2 Ordering Physician: JH BENSON Referring Physician: JH BENSON Performed By: Gm Dixon MD Reason For Study: Atrial fibrillation Interpreting Fellow: Gm Dixon. Exam Location: [facility]. Interpretation Summary WARREN performed in the EP lab prior to ablation to assess for CHRISTY thrombus. Left ventricular systolic function is normal with a visually estimated EF at 55- 60% There is no thrombus in the left atrial appendage, LA, or RA. No hemodynamically significant valvular disease. See remainder of report for additional findings. Compared with images of , systolic function has normalized Procedure Complete Transesophageal echocardiogram, real-time with image documentation (2D) including probe placement, image acquisition, interpretation, and report; Color flow velocity mapping; PW and/or CW doppler display. A complete WARREN study was performed under deep sedation with anesthesia provided by the anesthesiology service. After suitable sedation by anesthesia, the probe was inserted without difficulty. Standard views were obtained in the transgastric, mid esophageal, and basal planes using a multiplane transesophageal echo probe. Additional evaluation with color flow Doppler and limited spectral Doppler was performed. Continuous HR, BP, ECG, and O2 sat monitoring was performed during the procedure. There were no complications during the procedure. Informed consent from the patient in writing. The risks and benefits of the procedure were explained in detail to the patient, including but not limited to the risk of aspiration, dysphagia, and esophageal perforation. Patient agreed to proceed. Left Ventricle Left ventricle is of normal size. Left ventricular size and systolic function is normal. Left ventricular ejection fraction is estimated visually at 55-60%. There are no segmental wall motion abnormalities. Right Ventricle The right ventricle is of normal size. Right ventricular systolic function is normal. Left Atrium There is no thrombus in the left atrial appendage. There is no evidence of a mass or thrombus. The right and left upper pulmonary veins are identified. There is no evidence for a patent foramen ovale. Pulsed wave Doppler of the left atrial appendage demonstrates normal emptying velocity. Right Atrium No evidence of a mass or thrombus. Aortic Valve The aortic valve is structurally and functionally normal. The aortic valve is tricuspid. There is no aortic stenosis. There is no aortic regurgitation. Mitral Valve The mitral valve is structurally and functionally normal. There is no mitral stenosis. There is trace mitral regurgitation. Tricuspid Valve The tricuspid valve is structurally and functionally normal. There is no tricuspid stenosis. There is trace tricuspid regurgitation. Pulmonic Valve The pulmonic valve is not well visualized. There is no pulmonic valve regurgitation. Great Arteries The aortic root is of normal size. No abnormalities are identified. The diameter at the level of the sinuses of Valsalva is 3.6 cm. Ascending aorta is normal in size. Ascending Plaque grade 1: (normal Intima). Descending Thoracic Aorta Plaque grade 2: (extensive intimal thickening). Aortic Arch Plaque grade 1: (normal Intima). Pericardium/Pleural There is no pericardial effusion. Hemodynamics Pulmonary artery hypertension could not be assessed due to inadequate tricuspid regurgitation jet. ? 2D Measurements ? Volumes ?Ao root diam: 3.5 cm ? SV(LVOT): 85.8 ml ?Ao root diam index: 1.5 ?SI(LVOT): 37.9 ml/m2 ?asc Aorta Diam: 3.3 cm ?LVOT diam: 2.6 cm Doppler LV V1 VTI: 16.1 cm Ao V2 VTI: 19.0 cm Ao Max: 100.7 cm/sec Ao valve max: 4.1 mmHg Ao valve mean: 2.0 mmHg URSZULA(I,D): 4.5 cm2 Dimensionless index Aov: 0.84 I ?WMSI = 1.00 ? % Normal = 100 ?Segments ??Size X - Cannot ?2 - ?4 - ?1-2 ? small Interpret ?1 - Normal ?? Hypokinetic 3 - Akinetic Dyskinetic ?? 3-5 ? moderate 5 - ? 6-14 ?large Aneurysmal ?15-16 ?? diffuse Procedure Note Rod Anderson MD - 07/16/2023 Transesophageal Echocardiogram Report Name: MERYL HORN Study Date: 409:43 AM Patient Location: [address] : 1985 Height: 77 in Account: [id number] Age: 37 yrs Weight: 205 lb Gender: Male BSA: 2.3 m2 Ordering Physician: JH BENSON Referring Physician: JH BENSON Performed By: Gm Dixon MD Reason For Study: Atrial fibrillation Interpreting Fellow: Gm Dixon. Exam Location: [facility]. Interpretation Summary WARREN performed in the EP lab prior to ablation to assess for LAAthrombus. Left ventricular systolic function is normal with a visually estimated EFat 55- 60% There is no thrombus in the left atrial appendage, LA, or RA. No hemodynamically significant valvular disease. See remainder of report for additional findings. Compared with images of , systolic function has normalized Procedure Complete Transesophageal echocardiogram, real-time with imagedocumentation (2D) including probe placement, image acquisition, interpretation, and report;Color flow velocity mapping; PW and/or CW doppler display. A complete WARREN studywas performed under deep sedation with anesthesia provided by theanesthesiology service. After suitable sedation by anesthesia, the probe was insertedwithout difficulty. Standard views were obtained in the transgastric, midesophageal, and basal planes using a multiplane transesophageal echo probe. Additionalevaluation with color flow Doppler and limited spectral Doppler was performed.Continuous HR, BP, ECG, and O2 sat monitoring was performed during the procedure. Therewere no complications during the procedure. Informed consent from the patient inwriting. The risks and benefits of the procedure were explained in detail to thepatient, including but not limited to the risk of aspiration, dysphagia, andesophageal perforation. Patient agreed to proceed. Left Ventricle Left ventricle is of normal size. Left ventricular size and systolicfunction is normal. Left ventricular ejection fraction is estimated visually at55-60%. There are no segmental wall motion abnormalities. Right Ventricle The right ventricle is of normal size. Right ventricular systolic functionis normal. Left Atrium There is no thrombus in the left atrial appendage. There is no evidence ofa mass or thrombus. The right and left upper pulmonary veins are identified.There is no evidence for a patent foramen ovale. Pulsed wave Doppler of the leftatrial appendage demonstrates normal emptying velocity. Right Atrium No evidence of a mass or thrombus. Aortic Valve The aortic valve is structurally and functionally normal. The aortic valveis tricuspid. There is no aortic stenosis. There is no aorticregurgitation. Mitral Valve The mitral valve is structurally and functionally normal. There is nomitral stenosis. There is trace mitral regurgitation. Tricuspid Valve The tricuspid valve is structurally and functionally normal. There is notricuspid stenosis. There is trace tricuspid regurgitation. Pulmonic Valve The pulmonic valve is not well visualized. There is no pulmonic valve regurgitation. Great Arteries The aortic root is of normal size. No abnormalities are identified. Thediameter at the level of the sinuses of Valsalva is 3.6 cm. Ascending aorta isnormal in size. Ascending Plaque grade 1: (normal Intima). Descending Thoracic AortaPlaque grade 2: (extensive intimal thickening). Aortic Arch Plaque grade 1:(normal Intima). Pericardium/Pleural There is no pericardial effusion. Hemodynamics Pulmonary artery hypertension could not be assessed due to inadequatetricuspid regurgitation jet. 2D Measurements Volumes Ao root diam: 3.5 cm SV(LVOT): 85.8ml Ao root diam index: 1.5 SI(LVOT): 37.9ml/m2 asc Aorta Diam: 3.3 cm LVOT diam: 2.6 cm Doppler LV V1 VTI: 16.1 cm Ao V2 VTI: 19.0 cm Ao Max: 100.7 cm/sec Ao valve max: 4.1 mmHg Ao valve mean: 2.0 mmHg URSZULA(I,D): 4.5 cm2 Dimensionless index Aov: 0.84 I WMSI = 1.00 % Normal = 100 SegmentsSize X - Cannot 2 - 4 - 1-2small Interpret 1 - Normal Hypokinetic 3 - Akinetic Dyskinetic 3-5moderate 5 - 6-14large Aneurysmal 15-16diffuse Jh Benson MD ECHO ORDERABLES documented in this encounter Visit Diagnoses Diagnosis PAF (paroxysmal atrial fibrillation) Atrial fibrillation documented in this encounter Care Teams Face Man Relationship Specialty Start Date End Date Sharri Rosario APRN [address] [place] [address] PCP - General Family Medicine 06/01/22 documented as of this encounter
--- OUTSIDE RECORDS SUMMARY | 2024-02-21 12:25 | XMS_ITS | Encounter Summary ---
Author Organization [facility] [place] [address] Care Team Providers Care Modeling Instructor Name Role Phone Sharri Rosario APRN Primary Care Provider [phone] Reason for Visit * Reason Onset Date Comments Pre Procedure Call 07/03/2023 Encounter Details Date Type Department Care Team (Late st Contact Info) Description 07/03/2023 Telephone Cardiology at [address] [phone] Jessica Cole RN Pre Procedure Call Social History Tobacco Use Types Packs/Day Years Used Date Smoking Tobacco: Former Cigarettes Passive Smoke Exposure: Past Sex and Gender Information Value Date Recorded Sex Assigned at Not on file Gender Identity Not on file Sexual Orientation Not on file documented as of this encounter Miscellaneous Notes * Telephone Encounter - Jessica Cole RN - 07/03/2023 10:33 AM ESTSummary: Pre Procedure Call: EP ATTORNEY LAWYER COORDINATION CHECKLIST Patient Name: Roni Horn Patient Performing Outdoor Studies Professor: Abel Benson Referring Provider: Vik Lane Date of Procedure: 07/16/23 Arrival Time/ Case Time: 8:00 am / 9:00 am Check In Location: [employer] [facility] Date Patient was Called: 07/03/23 Procedure: Farapulse Atrial Fibrillation Ablation Company: [employer] Type: Pulse Field Ablation Orders: Yes Lab Orders: Yes Anesthesia: GA Discharge Plan/Disposition: OVERNIGHT/SSU Med Instructions: BB/CCB - hold pronpranolol x 2 doses (no dose on AM of 07/14 or AM of 07/15) Anticoag Type: Eliquis (apixaban) - will begin 07/03/23, provided pt w/ $10 copay card, knows to stopaspirin when beginning Eliquis Anticoag Instructions: Hold Eliquis for 1 dose (hold the AM of procedure) Imaging: WARREN the AM of procedure (unable to fit in CT scan prior to procedure) Contrast Allergy: N/A DM: N/A Coming from an assisted living facility?: No Any recent S/S of infection (fevers, on oral ABX)?: No Other Instructions: Clear liquids (water, apple juice, asif jerry) OK up until 2 hrs prior to procedure, nothing to eatafter midnight on day of procedure.Same Day will call 07/12. If applicable will bring CPAP from home. Will be going home the following day , understands that they will need milk wagon driver on day of discharge Notified pt that Bunn catheter may be placed on day of procedure depending on type & duration of case. documented in this encounter Plan of Treatment Upcoming Encounters Date Type Department Care Team (Late st Contact Info) Description 02/29/2024 7:30 PM EDT Procedure visit Sleep Center at [address] [address] 04/11/2024 1:00 PM EST Office Visit Cardiology at [address] [phone] Gerardo Lobo MD [facility] [place] [address] documented as of this encounter Visit Diagnoses Not on filedocumented in this encounter Care Teams Modeling Instructor Relationship Specialty Start Date End Date Sharri Rosario APRN [address] [place] [address] PCP - General Family Medicine 06/01/22 documented as of this encounter
--- OUTSIDE RECORDS SUMMARY | 2024-02-21 12:25 | XMS_ITS | Encounter Summary ---
Author Organization [facility] [place] [address] Care Team Providers Care Call Centre Supervisor Name Role Phone Sharri Rosario APRN Primary Care Provider [phone] Encounter Details Date Type Department Care Team (Late st Contact Info) Description 02/15/2023 Telephone Cardiology at [address] [address] Alexandra Prado Social History Tobacco Use Types Packs/Day Years [...] PM EDT Procedure visit Sleep Center at [facility] [address] [place] [address] 04/11/2024 1:00 PM EST Office Visit Cardiology at [address] [phone] Gerardo Lobo MD [facility] [place] [address] documented as of this encounter Visit Diagnoses Not on filedocumented in this encounter Care Teams Call Centre Supervisor Relationship Specialty Start Date End Date Sharri Rosario APRN [address] [place] [address] PCP - General Family Medicine 06/01/22 documented as of this encounter
--- OUTSIDE RECORDS SUMMARY | 2024-02-21 12:25 | XMS_ITS | Encounter Summary ---
Author Organization [facility] [place] [address] Care Team Providers Care Upper Inspector Name Role Phone Sharri Rosario APRN Primary Care Provider [phone] Reason for Referral * Consultation (Routine) - Closed Specialty Diagnoses / Procedures Referred By Contact Referred To Contact Electrophysiology / Cardiology Diagnoses Atrial arrhythmia Atrial arrhythmias w/ significant SOB when in Afib. Pt frustrated by afib episodes happening at times weekly. Recent Card consult (06/2022-[facility]) EP was recc, but referral not made. Sharri Rosario APRN [address] [place] [address] [facility] [address] [place] [phone] Referral ID Status Reason Start Date Expiration Date V isits Requested Visits Authorized [id number] Closed Consult, Test & Treat PCP Updated and/or Approved 07/27/2022 07/27/2023 6 6 Encounter Details Date Type Department Care Team (Late st Contact Info) Description 07/27/2022 Transcribe Orders eDH Incoming Referrals [phone] Sharri Rosario APRN [address] [place], [place] [address] Atrial arrhythmia Social History Tobacco Use Types Packs/Day Years [...] PM EDT Procedure visit Sleep Center at [facility] [address] [place] [address] 04/11/2024 1:00 PM EST Office Visit Cardiology at [address] [address] Gerardo Lobo MD [facility] [place] [address] Scheduled Referrals Name Type Priority Associated Diagnoses Order Schedule Referral to Cardiac Electrophysiology Outpatient Referral Routine Atrial arrhythmia Ordered: 07/27/2022 documented as of this encounter Visit Diagnoses Diagnosis Atrial arrhythmia Cardiac dysrhythmia, unspecified documented in this encounter Care Teams Upper Inspector Relationship Specialty Start Date End Date Sharri Rosario APRN [address] [place] [address] PCP - General Family Medicine 06/01/22 documented as of this encounter
--- OUTSIDE RECORDS SUMMARY | 2024-02-21 12:25 | XMS_ITS | Encounter Summary ---
Author Organization [facility] [place] [address] Care Team Providers Care Senior Gamemaster Name Role Phone Sharri Rosario APRN Primary Care Provider [phone] Encounter Details Date Type Department Care Team (Latest Contact Info) Description 06/22/2023 4:35 PM EST Laboratory Appointment Lab [address] [place] [phone] PAF (paroxysmal atrial fibrillation) Social History Tobacco [...] PM EDT Procedure visit Sleep Center at [address] [phone] 04/11/2024 1:00 PM EST Office Visit Cardiology at [address] [phone] Gerardo Lobo MD [facility] [place] [address] documented as of this encounter Procedures Procedure Name Priority Date/Time Associated Diagnosis Comments TSH CASCADE Routine 06/22/2023 4:44 PM EST PAF (paroxysmal atrial fibrillation) HEMOGRAM Routine 06/22/2023 4:44 PM EST PAF (paroxysmal atrial fibrillation) DIFFERENTIAL, AUTOMATED Routine 06/22/2023 4:44 PM EST PAF (paroxysmal atrial fibrillation) CBC (WITH DIFF) Routine 06/22/2023 4:44 PM EST PAF (paroxysmal atrial fibrillation) T4, FREE Routine 06/22/2023 4:44 PM EST BASIC METABOLIC PANEL Routine 06/22/2023 4:44 PM EST PAF (paroxysmal atrial fibrillation) documented in this encounter Results * T4, free (06/22/2023 4:44 PM EST) Pathologist [facility] Free T4 1.37 0.93 - 1.70 ng/dL [facility] Comment: Reference Interval (ng/dL): Females: ??First Trimester: 0.97-1.68 ??Second Trimester: 0.77-1.51 ??Third Trimester: 0.77-1.49 Blood 06/22/2023 4:44 PM EST 06/22/2023 5:03 PM EST Narrative Resulting Agency Comment Spec In Lab Danny Cherry Jr., MD CHEMISTRY SAYDA ROBERSON Performing Organization Address City/State/[facility] Co de Phone Number [facility] [place] [address] * (ABNORMAL) Differential, Automated (06/22/2023 4:44 PM EST) [facility] Neutrophil % 55.7 % [facility] Neutrophil Absolute 5.69 1.70 - 6.10 x10(3)/mc L [facility] Lymph % 30.1 % [facility] Lymphocytes Abs 3.1 0.9 - 3.2 x10(3)/mc L [facility] Monocyte % 9.7 % [facility] Monocyte Abs 1.0(H) 0.3 - 0.9 x10(3)/mc L [facility] Eos % 3.4 % [facility] Eosinophils Abs 0.4 0.0 - 0.4 x10(3)/mc L [facility] Basophil % 0.8 % [facility] Baso Absolute 0.1 0.0 - 0.1 x10(3)/mc L [facility] Immature Gran % 0.30 % [facility] Comment: Immature granulocytes(IG's)percentage and absolute count will include metamyelocytes, myelocytes, and promyelocytes. Blood smears from CBCs yielding IG's will be scanned manually for concordance. If this scan disagrees with the automated IG or if promyelocytes are noted, a manual differential will be performed. Immature Gran Absolute 0.03 0.00 - 0.04 x10(3)/ L [facility] Blood 06/22/2023 4:44 PM EST 06/22/2023 4:54 PM EST Narrative Resulting Agency Comment Spec In Lab Danny Cherry Jr., MD HEMATOLOGY ORD ERABLES [facility] [place] [address] * (ABNORMAL) Hemogram (06/22/2023 4:44 PM EST) White Blood Cell 10.2(H) 4.0 - 9.5 x10(3)/mc L [facility] Red Blood Cell 5.04 4.58 - 5.54 x10(6)/mc L [facility] Hemoglobin 15.9 13.7 - 16.5 g/dL [facility] Hematocrit 48.4 40.5 - 48.5 % [facility] Mean Cell Volume 96.0(H) 82.9 - 93.1 fL [facility] Mean Cell Hemoglobin 31.5 27.5 - 32.1 pg [facility] Mean Cell Hemoglobin Concentration 32.9 32.0 - 35.7 g/dL [facility] Platelet 351 145 - 357 x10(3)/mc L [facility] RDW Standard Deviation 45.7(H) 36.0 - 45.0 fL [facility] RDW coefficient of variation 12.9 11.4 - 13.8 % [facility] Mean Platelet Volume 9.0 7.6 - 12.9 fL [facility] NRBC% auto 0.0 % [facility] NRBC Absolute 0.000 0.000 - 0.000 x10(3)/mc L [facility] Blood 06/22/2023 4:44 PM EST 06/22/2023 4:54 PM EST Narrative Resulting Agency Comment Spec In Lab Danny Cherry Jr., MD HEMATOLOGY ORD ERABLES [facility] [address] [place] [address] * Basic Metabolic Panel (non-fasting) (06/22/2023 4:44 PM EST) Glucose 113 65 - 199 mg/dL [facility] Comment:Diabetes: >=200 mg/d L plus symptoms Blood Urea Nitrogen 15 10 - 20 mg/dL [facility] Creatinine 1.05 0.80 - 1.50 mg/dL [facility] Sodium 143 135 - 145 mmol/L [facility] Potassium 4.7 3.5 - 5.0 mmol/L [facility] Comment: Please note: ??Patients with WBC >100,000 may have falsely elevated Potassium levels. ??For accurate Potassium quantification in these patients send serum separator tube (gold top) for subsequent determinations. ??Contact the Clinical Chemistry Laboratory if there are any questions. Chloride 103 98 - 107 mmol/L [facility] Carbon Dioxide 29 22 - 31 mmol/L [facility] Anion Gap 11 5 - 15 mmol/L [facility] Calcium 10.0 8.5 - 10.5 mg/dL [facility] Est Glomerular Filtration Rate 93 >=60 mL/min/1. 73 m?? [facility] Comment: This patient's estimated GFR was [...] Lane MD CHEMISTRY ORDERABLES Performing Organization Address City/[facility] Co de Phone Number [facility] [place] [address] * (ABNORMAL) TSH [place] (06/22/2023 4:44 PM EST) Thyroid Stimulating Hormone 4.31(H) 0.27 - 4.20 mcIU/mL [facility] Comment: Reference Interval (mcIU/mL): Females: ??First Trimester: 0.23-3.88 ??Second Trimester: 0.22-3.90 ??Third Trimester: 0.44-4.66 Blood 06/22/2023 4:44 PM EST 06/22/2023 4:54 PM EST Narrative Resulting Agency Comment Spec In Lab Vik Lane MD CHEMISTRY ORDERABLES Performing Organization Address [facility] Co de Phone Number [facility] [place] [address] documented in this encounter Visit Diagnoses Diagnosis PAF (paroxysmal atrial fibrillation) Atrial fibrillation documented in this encounter Care Teams Senior Gamemaster Relationship Specialty Start Date End Date Sharri Rosario APRN [address] [place] [address] PCP - General Family Medicine 06/01/22 documented as of this encounter
--- OUTSIDE RECORDS SUMMARY | 2024-02-21 12:25 | XMS_ITS | Encounter Summary ---
Author Organization [facility] [place] [address] Care Team Providers Care Skating Rink Ice Maker Name Role Phone Sharri Rosario APRN Primary Care Provider [phone] Reason for Visit * Reason Comments Atrial Fibrillation Encounter Details Date Type Department Care Team (Late st Contact Info) Description 06/20/2023 3:41 AM EST - 06/20/2023 2:55 PM EST [place] [address] Carlota Naranjo MD [facility] [place] [address] Jj Card MD [facility] [place] [address] Atrial fibrillation with RVR Discharge Disposition: Home Social History Tobacco Use Types Packs/Day Years Used Date Smoking Tobacco: Former Cigarettes Passive Smoke Exposure: Past Sex and Gender Information Value Date Recorded Sex Assigned at Not on file Gender Identity Not on file Sexual Orientation Not on file documented as of this encounter Last Filed Vital Signs Vital Sign Reading Time Taken Comments Blood Pressure 97/68 06/20/2023 11:00 AM EST Pulse 69 06/20/2023 2:00 PM EST Temperature 36.8 ??C (98.2 ??F) 06/20/2023 3:50 AM ES T Respiratory Rate 14 06/20/2023 2:00 PM EST Oxygen Saturation 96% 06/20/2023 9:01 AM EST Inhaled Oxygen Concentration - - Weight 90.7 kg (200 lb) 06/20/2023 7:00 AM EST Height 195.6 cm (6' 5) 06/20/2023 7:00 AM EST Body Mass Index 23.72 06/20/2023 7:00 AM EST documented in this encounter Discharge Instructions * Discharge Instructions* Darin Gonzalez MD - 06/20/2023 11:11 AM EST You were seen in the emergency department for progressive more symptomatic atrial fibrillation. Youwere seen by our cardiology/electrophysiology team who recommend continuing with flecainide. You have been prescribed flecainide. Please take this as prescribed. We discussed the most likely diagnosis and reviewed the results of any appropriate labs or imaging tests that were ordered during your stay. Please follow-up with cardiology as we discussed. Please return to the emergency department if you develop any fevers, chest pain, shortness of breath, feeling like you are going to pass out or passing out, unusual weakness or numbness, blurred or double vision, headache, or have worsening of your current symptoms or develop new symptoms that are concerning to you and require immediate attention. It was a pleasure providing care to you at [facility]! documented in this encounter Medications at Time of Discharge Medication Sig Dispensed Refills Start Date End Date traZODone (Desyrel) 50 mg tablet 1/2 to 2 tabs HS as directed (I provided him a specific titration schedule.Please call our office if questions.) 30 tablet 2 05/31/2023 flecainide (Tambocor) 100 mg tablet Take 1 tablet by mouth 2 times daily. 30 tablet 06/20/2023 06/30/2023 propranoloL (Inderal LA) 60 mg ER 24 hr capsuleIndications:PAF (paroxysmal atrial fibrillation) Take 1 capsule by mouth daily. 90 capsule 3 06/04/2023 07/17/2023 aspirin EC 81 mg Tablet, Delayed Release (E.C.) Take 81 mg by mouth daily. 07/17/2021 07/16/2023 documented as of this encounter ED Notes * Darin Gonzalez MD - 06/20/2023 11:06 AM EST Emergency Department Sign-Out Note The patient was signed out to me by preceding ED team. Please see their notes for full details. I assumed the patient's care, reviewed the medical record, and discussed the patient's ED course with the previous treatment team. Pertinent labs and studies have been reviewed. Brief HPI The patient presented with symptomatic PAF and was awaiting EP formal recommendations at the time of signout. ED Course (since sign-out to me) ED Course as of 06/20/23 1109 SunJun 20, 2023 0826 EP by bedside 1000 Reevaluation: Patient denies any chest pain recently took flecainide remains in atrial fibrillation though heart rate is significantly better. Patient is hesitant about a cardioversion here in the ER and is interested in home flecainide 1108 Cardiology/EP consult: Recommend loading with flecainide here and discharged with flecainide 100 3 times daily. Also recommend a 1 L bolus. They said that he potentially could be cardioverted and the afternoon. Informed them that he is not interested in this Assessment/Plan 37-year-old with more significant paroxysmal atrial fibrillation who has previously been resistant to beta-blockade and cardioversion along with anticoagulation. Not a candidate for cardioversion based off of the history with multiple episodes of paroxysmal atrial fibrillation over the past month that there could significantly be a clot present. I spoke to the cardiology and EP team about this that he would prefer to have a pill in pocket and not be cardioverted. The plan was to load him with flecainide here and likely discharge with 100 twice daily of flecainide. Pending final reevaluation with EP/cardiology. Darin Gonzalez MD Resident 06/20/23 1110 Associated attestation - Jj Card MD - 06/21/2023 4:55 PM EST ED ATTENDING ATTESTATION See my note for additional details The patient was seen in conjunction with the resident physician. I have independently performed thekey portions of the history and physical exam. I have personally reviewed nursing notes, vital signs, and diagnostic studies including labs, imaging studies and EKGs. I have discussed the details of the case with the resident and agree with the assessment and plan as described in the resident's note, unless stated otherwise in my separate note. * Moraima Peralta RN - 06/20/2023 8:31 AM EST Cardiology @ bedside * Tamela Niño RN - 06/20/2023 6:37 AM EST Pt sleeping on left side, eyes closed, even non-labored resp effort. Covered pt with 2 warm blankets for comfort. * Tamela Niño RN - 06/20/2023 5:30 AM EST Pt removed monitor equipment. States he feels better. * Tamela Niño RN - 06/20/2023 4:45 AM EST Pt declines meds and wants to speak to cards before taking new meds. * Nella Valentin MD - 06/20/2023 4:05 AM EST ED Resident Note HPI: Meryl Horn is a 37 y.o. male who presents to the Emergency Department with atrial fibrillationwith RVR. Patient has a long-standing history of paroxysmal atrial fibrillation and follows with cardiology for this. Over the last couple of months, he completed a ziopatch which showed an approximately 13% burden of a fib. At that time, his primary molder trimmer had offered ablation or flecanide MO N, however patient declined this at that time given that his burden was only approximately once weekly and his symptoms always resolved with vigorous exercise. Over the past one month, patient notes episodes of a fib for much of the day approximately every other day. His a fib still resolved with vigorous exercise, however he states that he has to run a couple of miles to make a fib go away. Theyfib always starts while he is lying down. He feels palpitations with this and notes that his heart rate is frequently tachycardic. He was given return precautions by cardiology that if his heart ratewas persistently above 120, that he should present to the emergency room. He feels quite fatigued with this and has exertional dyspnea which resolves when he is in a normal rhythm again. He is at this point interested in a fib ablation but does not see cardiology for more than one month and feels that his symptoms are intolerable. No recent fevers, lower extremity edema, orthopnea, unintentional weight gain, chest pain. Patient takes a daily baby aspirin but no anticoagulation. ROS as per HPI Vitals: ED Triage Vitals [06/20/23 0350] BP: 140/89 Heart Rate: (!) 131 Resp: 15 Temp: 36.8 ??C (98.2 ??F) Temp src: Oral SpO2: 99 % O2 Device: RA O2 Flow Rate (L/min): n/a Physical Exam Vitals and nursing note reviewed. Constitutional: General: He is not in acute distress. Appearance: He is well-developed. He is not diaphoretic. HENT: Head: Normocephalic and atraumatic. Eyes: Conjunctiva/sclera: Conjunctivae normal. Cardiovascular: Rate and Rhythm: Tachycardia present. Rhythm irregular. Comments: Atrial fibrillation with RVR on the monitor, ventricular rates 115-135 Pulmonary: Effort: No respiratory distress. Abdominal: General: There is no distension. Musculoskeletal: Cervical back: Neck supple. Right lower leg: No edema. Left lower leg: No edema. Skin: General: Skin is warm and dry. Capillary Refill: Capillary refill takes less than 2 seconds. Neurological: Mental Status: He is alert and oriented to person, place, and time. Mental status is at baseline. Psychiatric: Mood and Affect: Mood normal. Behavior: Behavior normal. ED Course: I have reviewed labs and imaging, images and available reports, and they are significant for: ED Course as of 06/20/23 0447 SunJun 20, 2023 0405 Paged cardiology 044 ProBNP(!): 266 0446 CBC (with Diff)(!) unremarkable 0446 Magnesium: 0.92 0446 Basic Metabolic Panel (non-fasting)(!) Assessment and Plan: 37 y.o. male with history of paroxysmal atrial fibrillation who presents the emergency department in a fib with RVR. Patient previously was experiencing a fib once weekly and is now experiencing a fib every other day, however can still get himself back into sinus rhythm by running 3 miles. Patient is well appearing, and is euvolemic. BP is stable. He is able to ambulate without dizziness. No clear trigger for his episode of increased a fib frequency this month. Discussed with overnight jacquard loom fixer, who recommends EP consult at 7 AM for expedited ablation workup, and rate control with metoprolol and anticoagulation until that procedure. Discussed this with the patient, who is in agreement with plan to wait until EP comes in at 7 AM, however is hesitant to initiate rate control or AC at this time prior to speaking with EP. Given clinical stability, feel that it is appropriate to hold off 3 hours until they can speak with him directly. Patient was signed out to oncoming team awaiting EP consultation. See oncoming ED documentation forremainder of ED course. Nella Valentin MD Resident 06/20/23 0447 Associated attestation - Carlota Naranjo MD - 06/20/2023 4:53 AM EST ED ATTENDING ATTESTATION NOTE The patient was seen in conjunction with the resident physician. I have independently performed thekey portions of the history and physical exam. I have reviewed the diagnostic studies including labs, imaging studies and EKGs. I have discussed the details of the case with the resident and agree with the assessment and plan as described in the resident note unless noted below or in my separate note. * Carlota Naranjo MD - 06/20/2023 3:46 AM EST Brief Attending Note I cared for the patient with the resident physician. Please see his/her/their note associated with the encounter, for more details. I have reviewed all diagnostic studies personally including labs, imaging studies and EKGs. Please see ED course below for details. Assessment/plan: Medical Decision Making: Briefly, Meryl Horn is a 37 y.o. male who presents with palpitations ED Course: ED Course as of 06/20/23 0611 SunJun 20, 2023 0404 37 M with past medical history of paroxysmal A-fib currently on propranolol 160 mg twice dailypresents with persistent A-fib. Patient states that he has had a long outpatient workup for this and his molder trimmer is considering ablation versus as needed flecainide. The patient has been somewhat hesitant to get the ablation due to some stressors at home and not wanting a big surgery as he has to take care of his son who also has medical issues. Called his molder trimmer today to see if theycould expedite his outpatient ablation workup and was given return precautions such that if his heart rate stays over 1 20-1 30 for over 30 minutes to come to the ED. He did have some tachycardia this evening and so presented for evaluation. He has had no fevers, chest pain, shortness of breath prior to going into A-fib. No abdominal pain. States it is hard to take a deep breath with the A-fib but does not feel particularly short of breath. States that usually when he goes in A-fib he can run3 miles and he will spontaneously resolve the A-fib. Denies EtOH use or illicit drug use. 0406 BP: 140/89 0406 Temp: 36.8 ??C (98.2 ??F) 0406 Heart Rate(!): 131 0406 Resp: 15 0406 O2 Device: RA 0406 SpO2: 99 % 0406 Pain Level: 0 0406 On my independent exam, patient is resting comfortably, is irregularly irregular with no murmurs appreciated tachycardic. Lungs CTAB. No unilateral leg swelling or pitting edema. 0406 EKG on my independent review: Rate 127, narrow QRS, normal axis, no STEMI, irregularly irregular without P waves 0407 From cardiology note on 03/28/2023: Currently takes propranolol 160 mg daily and [...] sinus rhythm EKGs for review. EKGs in 2020 show atrial fibrillation with normal QRS duration. Zio patch performed recently shows a roughly 13% AFib burden. No overt atrial flutter. Fairly normal heart rate distribution. He saw Dr. Sahu in 2020 at which point they considered pill in the pocket flecainide but this wasultimately deferred at that time. 0437 Resident Homero discussed with cardiology, they recommend consulting EP in the morning to see ifthey can use this preablation appointment so that his next interaction with cardiology can be for his ablation. Cards also recommended rate control and anticoagulation. Dr. Valentin discussed this with the patient and he is amenable to staying. He would like to hold off on any medications until he can d iscuss further with EP. 0447 ProBNP(!): 266 0601 Signed out to oncoming team pending EP eval MDM: Patient presents in A-fib with RVR with multiple prior episodes of similar. Denies alcohol ingestion, and no clinically significant Eleonora abnormality. BNP is mildly elevated at 266, but he does notappear clinically in acute heart failure. Lungs CTAB and do not think that CXR is necessary at thistime. No S/S of focal nidus of infection. Suspect worsening paroxysmal A-fib. Discussed with cardiology as above and patient declined rate control and anticoagulation at this time in lieu of discussing with EP for possible outpatient ablation. Signout to oncoming team pending cardiology evaluation. 1. Atrial fibrillation with RVR Dispo: Signed out to oncoming team Carlota Naranjo MD 06/20/23 0656 documented in this encounter Miscellaneous Notes * Consult Note - Oliverio Nava MD - 06/20/2023 7:51 AM EST Images from the original note were not included. [facility] [place] [id number] CARDIOLOGY CONSULT NOTE Date of Consultation: 06/20/2023 Admit Date: 06/20/2023 Hospital Day 0 days Reason for Consult: atrial fibrillation Active Problems: There are no hospital problems to display for this patient. ID: Meryl Horn is a 37 y.o. male with a past medical history of paroxysmal atrial fibrillation([id number]) not on anticoagulation, anxiety, who presents for symptomatic atrial fibrillation. Brief HPI: He was seen in the ED today for atrial fibrillation. He struggles with recurrent episodes of atrialfibrillation now with increasing frequency. Normally they start overnight and will resolve if he goes on a run. Last night, he awoke at 2 am with palpitations consistent with prior episodes. Given that the episodes have become more frequent he presented to the ED. He currently takes propranolol 60 mg daily and trazodone. He saw Dr. Sahu in 2020 at which point they considered pill in the pocket flecainide but this was ultimately deferred at that time. He saw Dr. Lane in February 2023 and theydiscussed the possibility of atrial fibrillation ablation for which the patient was in favor of as well as flecainide in the meantime. Flecainide was never started. The plan was to follow up in 3 months. Social: No tobacco or other drug use. He occasionally uses marijuana. He will have a couple drinks per week but nothing significant. He previously drank heavily in college. Family: , now on second marriage. He has a child with developmental delay (HNRNPU). No atrial fibrillation in family that he knows of. Physical Exam: Last value Range last 8 hrs Temperature Temp: 36.8 ??C (98.2 ??F) Temp: [36.8 ??C (98.2 ??F)] Heart Rate Heart Rate: (!) 114 Heart Rate: [106-131] Blood Pressure BP: 99/70 BP: (99-147)/(70-99) Respiratory Rate Resp: 15 Resp: [15-20] SpO2 SpO2: 97 % SpO2: [97 %-99 %] No intake or output data in the 24 hours ending 06/20/23 0752 Wt & BMI By Encounter Date Flowsheet Row Office Visit from 07/04/2022 in Cardiology at [facility] Weight 92.8 kg (204 lb 8 oz) 1 07/04/2022 1603 BMI 24.25 1 07/04/2022 1603 General: Pleasant male in NAD. Cardiac: Irregular rate and rhythm. Normal S1, S2. No murmur. PMI nondisplaced. JVP within normal limits. Respiratory: Adequate air entry throughout. Clear lung sounds. Abdominal: Soft and non-tender with no organomegaly. Normal bowel sounds. Extremities: Warm lower extremities, bilateral lower extremity pitting edema, radial and DP pulses 2+ bilaterally. Labs reviewed and notable for: WBC 12.1, Hb 15.9, PLT 299 BMP normal, Cr 0.93 ProBNP 266 Mg 0.92 Relevant imaging: ECG (06/20/23): Atrial fibrillation, Qtc 420 ZIO 2023: Conclusion(s): Predominant rhythm is sinus 13% A fib burden with rate range 56-250 BPM; average rate 132 BPM. Longest duration 16 h 52 m. Rare brief symptomatic runs of SVT and NSVT No severe or symptomatic bradycardia, significant pauses (>3 seconds) or high grade AV block. Transthoracic echocardiogram 05/2022: TTE 06/20/23: -Left ventricular systolic function is mildly reduced. The left ventricular ejection fraction is 45% by Baldwin's biplane. Mild global hypokinesis. There is no left ventricular thrombus. There is Grade III LV diastolic dysfunction (restriction with markedly elevated left ventricular filling pressure). -The right ventricle is of normal size. Right ventricular systolic function is mildly decreased. -No significant valvular disease noted on this study. -Compared to the prior report from OSH scanned in media from 01/2021the biventricular systolic function has decreased mildly. LVEF was 60% and is now 45%. Assessment/Recommendations: Meryl Horn is a 37 y.o. male with a past medical history of paroxysmal atrial fibrillation ([id number]) not on anticoagulation, anxiety, who presents for symptomatic atrial fibrillation. He has had progressive paroxysmal atrial fibrillation over the past 6-12 months likely brought on by increasing stress in his life. He is open to the possibility of ablation (probably pulsed field) but understanding that this will not be a possibility for 2-3 months. We recommended 300mg dose of flecainide for which he converted without conversion pause. We will plan to discharge with flecainide 100mg bid and propranolol 60mg qd. If he has recurrent atrial fibrillation, he was instructed to attempt his usual methods of breaking (a light run) and if sustained for > 2 hours he should take an additional dose of 100mg flecainide. 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 We educated him that likely his systolic function will improve to normal and it enforces our decision to proceed with ablation. We will order the ablation and hopefully it will be scheduled in the next 1-2 months. Case discussed with Dr. Benson. Oliverio Nava MD Cardiovascular Medicine Fellow 06/20/2023 Associated attestation - Abel Benson MD - 06/22/2023 3:52 PM EST Cardiac Electrophysiology Attending Addendum: The patient was seen, interviewed and examined by me, and Dr. Flores's associated note was reviewed by me and agreed with., as it reflects our discussions. Meryl has recurrent symptomatic increasingly frequent paroxysmal atrial fibrillation. 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 Nonetheless, cydney since he converted w/ a single 300 mg dose of flecainide, I think it is reasonable for him to continue w/ flecainide 100 mg po BID until such time as he undergoes pulmonary vein isolation via pulsed field, which we shall schedule him for in the coming months. Rationalesfor, intended benefits and potential risk of planned procedures reviewed. The patient indicated understanding and agreement with the plan. Abel Benson MD, PhD, [facility] Cardiac Electrophysiology * ED Triage - Tamela Niño RN - 06/20/2023 3:52 AM EST Pt comes to ED for increased episodes of a-fib. States its about every other day this past month. Pt called Dr. Pierson and was told if his a-fib is >130 for more than 30 mins to go to ED for eval.Pt arrives, amb to ED. Denies chest pain, sob or other sx. Non-labored resp effort. Speaks clearly.NAD at this time. HPI (Adult) Stated Reason for Visit: I'm in A-fib and my doctor told me if I stayed in it more than 30 mins with it over 130 to come in and be seen. History Obtained From: patient Precipitating Event(s): other (see comments) Onset of Symptoms: constant documented in this encounter Plan of Treatment Upcoming Encounters Date Type Department Care Team (Late st Contact Info) Description 02/29/2024 7:30 PM EDT Procedure visit Sleep Center at [facility] [address] [place] [address] 04/11/2024 1:00 PM EST Office Visit Cardiology at [address] [place] [address] Gerardo Lobo MD [facility] [place] [address] documented as of this encounter Procedures Procedure Name Priority Date/Time Associated Diagnosis Comments ECHO COMPLETE W CONTRAST Routine 06/20/2023 1:07 PM EST Atrial fibrillation with RVR EKG 12-LEAD STAT 06/20/2023 12:13 PM EST HEMOGRAM STAT 06/20/2023 3:56 AM EST DIFFERENTIAL, AUTOMATED STAT 06/20/2023 3:56 AM EST GOLD TUBE HOLD STAT 06/20/2023 3:56 AM EST BLUE TUBE HOLD STAT 06/20/2023 3:56 AM EST CBC (WITH DIFF) STAT 06/20/2023 3:56 AM EST PRO-BRAIN NATRIURETIC PEPTIDE STAT 06/20/2023 3:56 AM EST MAGNESIUM STAT 06/20/2023 3:56 AM EST BASIC METABOLIC PANEL STAT 06/20/2023 3:56 AM EST EKG 12-LEAD STAT 06/20/2023 3:47 AM EST documented in this encounter Results * ECHO COMPLETE W CONTRAST (06/20/2023 1:07 PM EST) Anatomical Region Laterality Modality Cardiac Other 06/20/2023 12:1 2 PM EST Narrative 06/20/2023 1:34 PM EST [address] [place] [address] ? Echocardiogram Report Name: MERYL HORN ?Study Date: 06/20/2023 12:12 PMBP: 108/82 mmHg ? Patient Location: ED : 1985 ? Height: 196 cm ? Account: [id number] Age: 37 yrs ? Weight: 91 kg Gender: Male ?BSA: 2.2 m2 Ordering Physician: JJ CARD Referring Physician: NONE Performed By: Anjali Foss Reason For Study: Atrial fibrillation with RVR Exam Location: [facility]. Interpretation Summary -Left ventricular systolic function is mildly reduced. The left ventricular ejection fraction is 45% by Baldwin's biplane. Mild global hypokinesis. There is no left ventricular thrombus. There is Grade III LV diastolic dysfunction (restriction with markedly elevated left ventricular filling pressure). -The right ventricle is of normal size. Right ventricular systolic function is mildly decreased. -No significant valvular disease noted on this study. -Compared to the prior report from OS scanned in media from 01/2021the biventricular systolic function has decreased mildly. LVEF was 60% and is now 45%. Procedure Complete-[id number]. Image enhancement Optison was used for left ventricular opacification. Suboptimal quality. There is normal sinus rhythm. Left Ventricle Left ventricle is of normal size. Wall thickness is normal. There is no ventricular septal defect. A false tendon is identified. Left ventricular systolic function is mildly reduced. The left ventricular ejection fraction is 45% by Baldwin's biplane. Mild global hypokinesis. There is no left ventricular thrombus. Right Ventricle The right ventricle is of normal size. Right ventricular systolic function is mildly decreased. Left Atrium The left atrium is normal. There is no evidence for a patent foramen ovale. Right Atrium The right atrium is normal. Aortic Valve The aortic valve is tricuspid. There is no aortic stenosis. There is no aortic regurgitation. Mitral Valve The mitral valve is structurally and functionally normal. There is trace mitral regurgitation. Tricuspid Valve The tricuspid valve is structurally and functionally normal. There is trace tricuspid regurgitation. Pulmonic Valve The pulmonic valve appears to be structurally and functionally normal. There is trace pulmonic valve regurgitation. Great Arteries The diameter at the level of the sinuses of Valsalva is 3.5 cm. The maximum diameter of the proximal ascending aorta is 3.5 cm. No abnormalities of the pulmonary artery are identified. Venous Inferior vena cava is dilated. Inferior vena cava collapse greater than 50% with respiration. Pericardium/Pleural There is no pericardial effusion. A pericardial fat pad is present. Hemodynamics The peak right ventricular systolic pressure is 25.6 mmHg . Left ventricular diastolic function is abnormal. There is Grade III LV diastolic dysfunction (restriction with markedly elevated left ventricular filling pressure). Ejection Fraction ?2D Measurements ? Volumes EF(MOD-bp): 44.5 % ?IVSd: 1.1 cm ? LAV(MOD- bp) Indexed: ?LVIDd: 4.9 cm ?LVIDs: 3.7 cm ?24.1 ml/m2 ?LVPWd: 0.81 cm ? RA A4Cs_phl: 17.3 cm2 ? EDV(MOD-bp) Indexed: ?RWT: 0.33 {ratio} ?LV mass(C)d: 173.6 grams ? 77.2 ml/m2 ?LV mass(C)dI: 77.4 grams/m2 ?ESV(MOD- bp) Indexed: ?Ao root diam: 3.5 cm ? 42.8 ml/m2 ?Ao root diam index: 1.5 ?asc Aorta Diam: 3.5 cm ?LVOT diam: 2.4 cm ?TAPSE_phl: 1.7 cm Doppler MV E max braxton: 71.1 cm/sec MV A max braxton: 29.5 cm/sec MV E/A: 2.4 MV dec time: 0.14 sec Lat Peak E' Braxton: 13.6 cm/sec E/ e' (lat): 5.2 Med Peak E' Braxton: 9.3 cm/sec E/e' (med): 7.7 E/e' Average: 6.5 TR max braxton: 209.9 cm/sec RVSP(TR): 25.6 mmHg I ?WMSI = 2.00 ? % Normal = 0 ?Segments ??Size X - Cannot ?2 - ?4 - ?1-2 ? small Interpret ?1 - Normal ?? Hypokinetic 3 - Akinetic Dyskinetic ?? 3-5 ? moderate 5 - ? 6-14 ?large Aneurysmal ?15-16 ?? diffuse Procedure Note Luz Flor MD - 06/20/2023 [address] [place] [address] Echocardiogram Report Name: MERYL HORN Study Date: 412:12 PMBP: 108/82 mmHg Patient Location: ED : 1985 Height: 196 cm Account: [id number] Age: 37 yrs Weight: 91 kg Gender: Male BSA: 2.2 m2 Ordering Physician: JJ CARD Referring Physician: NONE Performed By: Anjali Foss Reason For Study: Atrial fibrillation with RVR Exam Location: [facility]. Interpretation Summary -Left ventricular systolic function is mildly reduced. The leftventricular ejection fraction is 45% by Baldwin's biplane. Mild global hypokinesis.There is no left ventricular thrombus. There is Grade III LV diastolicdysfunction (restriction with markedly elevated left ventricular filling pressure). -The right ventricle is of normal size. Right ventricular systolicfunction is mildly decreased. -No significant valvular disease noted on this study. -Compared to the prior report from [facility] scanned in [place] from 01/2021the biventricular systolic function has decreased mildly. LVEF was 60% and isnow 45%. Procedure Complete-[id number]. Image enhancement Optison was used for left ventricular opacification. Suboptimal quality. There is normal sinus rhythm. Left Ventricle Left ventricle is of normal size. Wall thickness is normal. There is no ventricular septal defect. A false tendon is identified. Left ventricularsystolic function is mildly reduced. The left ventricular ejection fraction is 45%by Baldwin's biplane. Mild global hypokinesis. There is no left ventricularthrombus. Right Ventricle The right ventricle is of normal size. Right ventricular systolic functionis mildly decreased. Left Atrium The left atrium is normal. There is no evidence for a patent foramenovale. Right Atrium The right atrium is normal. Aortic Valve The aortic valve is tricuspid. There is no aortic stenosis. There is noaortic regurgitation. Mitral Valve The mitral valve is structurally and functionally normal. There is tracemitral regurgitation. Tricuspid Valve The tricuspid valve is structurally and functionally normal. There istrace tricuspid regurgitation. Pulmonic Valve The pulmonic valve appears to be structurally and functionally normal.There is trace pulmonic valve regurgitation. Great Arteries The diameter at the level of the sinuses of Valsalva is 3.5 cm. Themaximum diameter of the proximal ascending aorta is 3.5 cm. No abnormalities ofthe pulmonary artery are identified. Venous Inferior vena cava is dilated. Inferior vena cava collapse greater than50% with respiration. Pericardium/Pleural There is no pericardial effusion. A pericardial fat pad is present. Hemodynamics The peak right ventricular systolic pressure is 25.6 mmHg . Leftventricular diastolic function is abnormal. There is Grade III LV diastolicdysfunction (restriction with markedly elevated left ventricular filling pressure). Ejection Fraction 2D Measurements Volumes EF(MOD-bp): 44.5 % IVSd: 1.1 cm LAV(MOD-bp)Indexed: LVIDd: 4.9 cm LVIDs: 3.7 cm 24.1 ml/m2 LVPWd: 0.81 cm RA A4Cs_phl: 17.3cm2 EDV(MOD-bp)Indexed: RWT: 0.33 {ratio} LV mass(C)d: 173.6 grams 77.2 ml/m2 LV mass(C)dI: 77.4 grams/m2 ESV(MOD-bp)Indexed: Ao root diam: 3.5 cm 42.8 ml/m2 Ao root diam index: 1.5 asc Aorta Diam: 3.5 cm LVOT diam: 2.4 cm TAPSE_phl: 1.7 cm Doppler MV E max braxton: 71.1 cm/sec MV A max braxton: 29.5 cm/sec MV E/A: 2.4 MV dec time: 0.14 sec Lat Peak E' Braxton: 13.6 cm/sec E/ e' (lat): 5.2 Med Peak E' Braxton: 9.3 cm/sec E/e' (med): 7.7 E/e' Average: 6.5 TR max braxton: 209.9 cm/sec RVSP(TR): 25.6 mmHg I WMSI = 2.00 % Normal = 0 SegmentsSize X - Cannot 2 - 4 - 1-2small Interpret 1 - Normal Hypokinetic 3 - Akinetic Dyskinetic 3-5moderate 5 - 6-14large Aneurysmal 15-16diffuse Jj Card MD ECHO ORDERABLES * EKG 12 Lead (06/20/2023 12:13 PM EST) Ventricular rate 67 BPM MUSE SYSTEM Atrial Rate 67 BPM MUSE SYSTEM P-R Interval 192 ms MUSE SYSTEM QRS Duration 102 ms MUSE SYSTEM Q-T Interval 402 ms MUSE SYSTEM QTC Calculated (Bezet) 424 ms MUSE SYSTEM Calculated P Isabella 80 degrees MUSE SYSTEM Calculated R Isabella 100 degrees MUSE SYSTEM Calculated T Isabella 71 degrees MUSE SYSTEM INTERPRETATION Normal sinus rhythm Rightward axis Early repolarization Borderline ECG When compared with ECG of 20-JUN-2023 03:47, (unconfirmed) Sinus rhythm has replaced Atrial fibrillation Vent. rate has decreased BY ??[address] elevation now present in Inferior leads Nonspecific T wave abnormality no longer evident in Inferior leads Nonspecific T wave abnormality no longer evident in Lateral leads Confirmed by MD Mariya, [facility] ([id number]) on 06/23/2023 3:26:28 PM MUSE SYSTEM 06/20/2023 12:1 3 PM EST 06/23/2023 3:26 PM EST Jj Card MD ECG ORDERABLES MUSE SYSTEM * Gold Tube HOLD (06/20/2023 3:56 AM EST) Pathologist [facility] Gold Hold Sample in lab. [facility] Blood Venous Draw / Unknown 06/20/2023 3:56 AM EST 06/20/2023 4:[address] Rom Cadena MD CHEMISTRY [place] [address] * Blue Tube HOLD (06/20/2023 3:56 AM EST) Blue Hold Sample in lab. [facility] Blood Venous Draw / Unknown 06/20/2023 3:56 AM EST 06/20/2023 4:[address] Rom Cadena MD HEMATOLOGY [place] [address] * (ABNORMAL) Differential, Automated (06/20/2023 3:56 AM EST) Neutrophil % 50.5 % [facility] Neutrophil Absolute 6.07 1.70 - 6.10 x10(3)/mc L [facility] Lymph % 32.8 % [facility] Lymphocytes Abs 4.0(H) 0.9 - 3.2 x10(3)/mc L [facility] Monocyte % 10.0 % [facility] Monocyte Abs 1.2(H) 0.3 - 0.9 x10(3)/mc L [facility] Eos % 5.8 % [facility] Eosinophils Abs 0.7(H) 0.0 - 0.4 x10(3)/mc L [facility] Basophil % 0.7 % [facility] Baso Absolute 0.1 0.0 - 0.1 x10(3)/mc L [facility] Immature Gran % 0.20 % [facility] Comment: Immature granulocytes(IG's)percentage and absolute count will include metamyelocytes, myelocytes, and promyelocytes. Blood smears from CBCs yielding IG's will be scanned manually for concordance. If this scan disagrees with the automated IG or if promyelocytes are noted, a manual differential will be performed. Immature Gran Absolute 0.03 0.00 - 0.04 x10(3)/mc L [facility] Blood 06/20/2023 3:56 AM EST 06/20/2023 4:04 AM EST Narrative Resulting Agency Comment Spec In Lab Nella Valentin MD HEMATOLOGY ORDERABLE S [facility] [place] [address] * (ABNORMAL) Hemogram (06/20/2023 3:56 AM EST) White Blood Cell 12.1(H) 4.0 - 9.5 x10(3)/mc L [facility] Red Blood Cell 5.03 4.58 - 5.54 x10(6)/mc L [facility] Hemoglobin 15.9 13.7 - 16.5 g/dL [facility] Hematocrit 47.1 40.5 - 48.5 % [facility] Mean Cell Volume 93.6(H) 82.9 - 93.1 fL [facility] Mean Cell Hemoglobin 31.6 27.5 - 32.1 pg [facility] Mean Cell Hemoglobin Concentration 33.8 32.0 - 35.7 g/dL [facility] Platelet 299 145 - 357 x10(3)/mc L [facility] RDW Standard Deviation 44.4 36.0 - 45.0 fL [facility] RDW coefficient of variation 13.0 11.4 - 13.8 % [facility] Mean Platelet Volume 8.9 7.6 - 12.9 fL [facility] NRBC% auto 0.0 % [facility] NRBC Absolute 0.000 0.000 - 0.000 x10(3)/mc L [facility] Blood 06/20/2023 3:56 AM EST 06/20/2023 4:04 AM EST Narrative Resulting Agency Comment Spec In Lab Nella Valentin MD HEMATOLOGY ORDERABLE S [facility] [place] [address] * (ABNORMAL) pro-Brain Natriuretic Peptide (06/20/2023 3:56 AM EST) NT-proBNP 266(H) <=124 pg/mL [facility] Blood 06/20/2023 3:56 AM EST 06/20/2023 4:04 AM EST Narrative Resulting Agency Comment Spec In Lab Carlota Naranjo MD CHEMISTRY ORDERABLE S Performing Organization Address City/[facility]/ZIP Co de Phone Number [facility] [place] [address] * Magnesium (06/20/2023 3:56 AM EST) Magnesium 0.92 0.69 - 1.07 mmol/L [facility] Blood 06/20/2023 3:56 AM EST 06/20/2023 4:04 AM EST Narrative Resulting Agency Comment Spec In Lab Carlota Naranjo MD CHEMISTRY ORDERABLE S Performing Organization Address [facility] de Phone Number [facility] [place] [address] * (ABNORMAL) Basic Metabolic Panel (non-fasting) (06/20/2023 3:56 AM EST) Glucose 126 65 - 199 mg/dL [facility] Comment:Diabetes: >=200 mg/d L plus symptoms Blood Urea Nitrogen 17 10 - 20 mg/dL [facility] Creatinine 0.93 0.80 - 1.50 mg/dL [facility] Sodium 144 135 - 145 mmol/L [facility] Potassium 3.9 3.5 - 5.0 mmol/L [facility] Comment: Please note: ??Patients with WBC >100,000 may have falsely elevated Potassium levels. ??For accurate Potassium quantification in these patients send serum separator tube (gold top) for subsequent determinations. ??Contact the Clinical Chemistry Laboratory if there are any questions. Chloride 108(H) 98 - 107 mmol/L [facility] Carbon Dioxide 25 22 - 31 mmol/L [facility] Anion Gap 11 5 - 15 mmol/L [facility] Calcium 9.5 8.5 - 10.5 mg/dL [facility] Est Glomerular Filtration Rate 108 >=60 mL/min/1. 73 m?? [facility] Comment: This patient's estimated GFR [...] and symptoms in addition to eGFR. Blood 06/20/2023 3:56 AM EST 06/20/2023 4:04 AM EST Narrative Resulting Agency Comment Spec In Lab Carlota Naranjo MD CHEMISTRY ORDERABLE S Performing Organization Address [facility] Co [place] [address] * EKG 12 Lead (06/20/2023 3:47 AM EST) Ventricular rate 127 BPM MUSE SYSTEM QRS Duration 88 ms MUSE SYSTEM Q-T Interval 292 ms MUSE SYSTEM QTC Calculated (Bezet) 424 ms MUSE SYSTEM Calculated R Isabella 90 degrees MUSE SYSTEM Calculated T Isabella 0 degrees MUSE SYSTEM INTERPRETATION Atrial fibrillation with rapid ventricular response Rightward axis Nonspecific ST and T wave abnormality Abnormal ECG No previous ECGs available I personally reviewed the tracing and edited the fellows interpretation Confirmed by fellow MD Elijah, Oliverio ([id number]) on 06/20/2023 3:28:54 PM Confirmed by MD Toy, Ruslan ([id number]) on 06/20/2023 6:18:18 PM MUSE SYSTEM 06/20/2023 3:47 AM EST 06/20/2023 6:18 PM EST Carlota Naranjo MD ECG ORDERABLES Performing Organization Address City/[facility] Co de Phone Number MUSE SYSTEM documented in this encounter Visit Diagnoses Diagnosis Atrial fibrillation with RVR Atrial fibrillation documented in this encounter Administered Medications Inactive Administered Medications - up to 3 most recent administrations Medication Order MAR Action Action Date Dose Rate Site flecainide (Tambocor) tablet 300 mg 300 mg, Oral, ONCE, 1 dose, On Sun06/20/23 at 0910, STAT Given 06/20/2023 9:48 AM EST 300 mg perflutren protein-A microsphers (Optison) (0.22 mg/mL) injection 0.5 mL 0.5 mL, Intravenous, ONCE PRN, 1 dose, Starting on Sun06/20/23 at 1307, Until Sun06/20/23 at 1308, for enhancement of sub-optimal echo images, Echo Lab (Intra-Procedure), Routine Given 06/20/2023 1:08 PM EST 1.8 mLs sodium chloride 0.9% 1,000 mL IV bolus at 250 mL/hr, Intravenous, ONCE, 1 dose, On Sun06/20/23 at 0910 New Bag 06/20/2023 9:49 AM EST 250 mL/hr documented in this encounter Active and Recently Administered Medications Times are shown in EST. Scheduled Medication Order 06/18/2023 06/19/2023 06/20/2023 flecainide (Tambocor) tablet 300 mg (COMPLETED) 300 mg, Oral, ONCE, 1 dose, On Sun06/20/23 at 0910, STAT 0948 (Given - Provid er: Moraima Peralta RN) sodium chloride 0.9% 1,000 mL IV bolus (COMPLETED) at 250 mL/hr, Intravenous, ONCE, 1 dose, On Sun06/20/23 at 0910 0949 (New Bag - Prov ider: Moraima Peralta RN)1349 (Stopped - Provider: Moraima Peralta RN) PRN Medication Order 06/18/2023 06/19/2023 06/20/2023 perflutren protein-A microsphers (Optison) (0.22 mg/mL) injection 0.5 mL (COMPLETED) 0.5 mL, Intravenous, ONCE PRN, 1 dose, Starting on Sun06/20/23 at 1307, Until Sun06/20/23 at 1308, for enhancement of sub-optimal echo images, Echo Lab (Intra-Procedure), Routine 1308 (Given - Provid er: Anjali Foss) documented in this encounter Care Teams [employer] Relationship Specialty Start Date End Date Sharri Rosario APRN [address] [place] [address] PCP - General Family Medicine 06/01/22 documented as of this encounter
--- OUTSIDE RECORDS SUMMARY | 2024-02-21 12:25 | XMS_ITS | Encounter Summary ---
[place] [address] Care Team Providers Care Applications Support Analyst Name Role Phone Sharri Rosario APRN Primary Care Provider [phone] Reason for Referral * Diagnostic Test (Routine) - Closed Specialty Diagnoses / Procedures Referred By Contac t Referred To Contact Cardiology Diagnoses PAF (paroxysmal atrial fibrillation) Procedures Transesophageal Echocardiogram (WARREN) Abel Benson MD [facility] [address] [place] [address] [facility] [place] [address] Referral ID Status Reason Start Date Expiration Date V isits Requested Visits Authorized [id number] Closed Specialty Service Requested 07/09/2023 07/08/2024 1 1 Reason for Visit * Auth/Cert (Routine) Specialty Diagnoses / Procedures Referred By Contac t Referred To Contact Diagnoses PAF (paroxysmal atrial fibrillation) PAF (paroxysmal atrial fibrillation) [I48.0] Procedures ELECTROPHYSIOLOGY PROCEDURE TRANSESOPHAGEAL ECHO DURING CATH/EP PROCEDURE Abel Benson MD [facility] [place] [address] [facility] Referral ID Status Reason Start Date Expiration Date Visits Re quested Visits Authorized [id number] 1 1 Encounter Details Date Type Department Care Team (Latest Contact Info) Description 07/16/2023 8:05 AM EDT - 07/17/2023 12:24 PM EDT Hospital Encounter Short Stay Unit at [facility] [place] [address] Abel Benson MD [facility] [place] [address] PAF (paroxysmal atrial fibrillation) Discharge Disposition: Home [...] Sign Reading Time Taken Comments Blood Pressure 118/59 07/17/2023 5:25 AM EDT Pulse 57 07/17/2023 5:25 AM EDT Temperature 36.9 ??C (98.4 ??F) 07/17/2023 5:25 AM ED T Respiratory Rate 20 07/17/2023 5:25 AM EDT Oxygen Saturation 96% 07/17/2023 5:25 AM EDT Inhaled Oxygen Concentration - - Weight 92.5 kg (203 lb 14.4 oz) 07/16/2023 9:06 AM EDT Height 195.6 cm (6' 5) 07/16/2023 9:06 AM EDT Body Mass Index 24.18 07/16/2023 9:06 AM EDT documented in this encounter Discharge Summaries * Gm Abad MD - 07/17/2023 8:27 AM EDT Cardiac Electrophysiology Discharge Summary Patient Name: Meryl Horn Patient Age: 37 y.o. Language: Guamanian Race: White Ethnicity: Not nor Admit date: 07/16/2023 Discharge date and time: 07/17/23 Attending Physician: Abel Benson MD Discharge Physician: Abel Benson MD Follow-up Recommendations for Providers: - s/p pulmonary vein isolation with pulsed wave ablation (electroporation) - Continue anticoagulation with apixaban for three months post procedure - Flecainide was discontinued. - Propranolol may be tapered off unless needed for anxiety or hypertension. 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 Discharge Diagnoses (Hospital Problems) and Secondary Diagnoses (Chronic Problems): Active Hospital Problems Diagnosis Paroxysmal atrial fibrillation Resolved Hospital Problems No resolved problems to display. 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 Hospital Course: See procedure note. Next day discharge. #Atrial fibrillation As noted elsewhere, the procedure was prolonged due to suspicion of left atrial thrombus on intracardiac echo which was determined to be artifact by WARREN. There was phrenic nerve capture during right sided pulse delivery. #Postop Pain He described a severe right sided flank pain provoked by speaking, deep breathing, or movement of his abdominal muscles, possibly due to stimulation of the diaphragm during the case. This was managedwith po and IV medications and improved rapidly. Vital Signs at Discharge: BP: 118/59, Heart Rate: 57, Temp: 36.9 ??C (98.4 ??F), Resp: 20, BMI (Calculated): 24.18 Height: 195.6 cm (6' 5) (07/16/23905) Weight: 92.5 kg (203 lb 14.4 oz) (07/16/23905) Admission Diagnoses: PAF (paroxysmal atrial fibrillation) [I48.0] Paroxysmal atrial fibrillation [I48.0] Discharge Diagnoses: PAF (paroxysmal atrial fibrillation) [I48.0] Paroxysmal atrial fibrillation [I48.0] Discharge Exam: Well appearing Clear lungs Regular S1/S2 Groin sites clean/dry, no hematoma Telemetry shows sinus rhythm throughout. Discharge to: home Updated Allergies/ADRs: Allergies Allergen Reactions Codeine Nausea Only Discharge Medications: Your Medications Continued medications, unchanged Dose Details apixaban 5 mg tablet Commonly known as: Eliquis Take 1 tablet by mouth 2 times daily for 90 days. 5 mg Refills: 0 LORazepam 0.5 mg tablet Commonly known as: Ativan 1-2 tabs TID PRN anxiety. Quantity: 30 tablet Refills: 2 traZODone 50 mg tablet Commonly known as: Desyrel 1/2 to 2 tabs HS as directed (I provided him a specific titration schedule.Please call our office if questions.) Quantity: 30 tablet Refills: 2 STOPPED Medications aspirin EC 81 mg EC (DR) tablet flecainide 100 mg tablet Commonly known as: Tambocor propranolol LA 60 mg ER 24 hr capsule Commonly known as: Inderal LA Instructions Given to Patient at Discharge: Patient Instructions DISCHARGE INSTRUCTIONS FOLLOWING YOUR ABLATION Catheter Insertion Area Care - You may [...] If there is rapid swelling with a ???black and blue?? color at the catheter insertion area, there [...] (or anything else out of the ordinary): Chest discomfort. Inflammation in the form of [...] it commonly responds well to anti-inflammatory medication. Fever or sweats, significant malaise. Possibly a [...] an urgent medical assessment should be obtained. This is not an exhaustive list. If the patient experiences anything out of the ordinary post-procedure, he/she is encouraged to contact his/her physician or the Cardiac Electrophysiology Service . General Instructions None Future Appointments and Orders Future Appointments and Orders Future Appointments Provider Department Dept Phone 07/18/2023 9:00 AM Diony Fernandes MD [facility] Arrive at: Home [phone] To view instructions for your video visit, click here, or visit this website: [email or web address] If you have not previously downloaded the [facility] patient portal software, [employer], or the [employer] clyde, please do so by clicking one of these links below or searching in your device's clyde store. For all desktops/laptops; for Android devices; for Apple/iOS devices Please test your camera and microphone prior to your video visit. FAQs: Join Video Visit button not connecting? - This may be due to pop-up blockers. - Click this link to see: How to Disable Pop-Up Block for [facility] Video Visits Zoom asking for a meeting password? - Exit out of the Zoom program and try the link again 09/12/2023 12:30 PM Gregoria Hsieh, [facility] Arrive at: [employer] [address] [phone] documented in this encounter Discharge Instructions * Patient Instructions* Gm Abad MD - 07/17/2023 10:59 AM EDT DISCHARGE INSTRUCTIONS FOLLOWING YOUR ABLATION Catheter Insertion Area Care - You may [...] If there is rapid swelling with a ???black and blue?? color at the catheter insertion area, there [...] (or anything else out of the ordinary): Chest discomfort. Inflammation in the form of [...] it commonly responds well to anti-inflammatory medication. Fever or sweats, significant malaise. Possibly a [...] an urgent medical assessment should be obtained. This is not an exhaustive list. If the patient experiences anything out of the ordinary post-procedure, he/she is encouraged to contact his/her physician or the Cardiac Electrophysiology Service . documented in this encounter Medications at Time of Discharge Medication Sig Dispensed Refills Start Date End Date traZODone (Desyrel) 50 mg tablet 1/2 to 2 tabs HS as directed (I provided him a specific titration schedule.Please call our office if questions.) 30 tablet 2 05/31/2023 apixaban (Eliquis) 5 mg tablet Take 1 tablet by mouth 2 times daily for 90 days. 07/17/2023 10/15/2023 LORazepam (Ativan) 0.5 mg tablet 1-2 tabs TID PRN anxiety. 30 tablet 2 07/03/2023 08/02/2023 documented as of this encounter Progress Notes * Yoseph Madison RN - 07/17/2023 11:56 AM EDT [facility] Short Stay Unit Discharge Note All relevant discharge milestones have been met by the patent. After Visit Summary and discharge teaching reviewed with the patient and a family member. IV access has been discontinued. All personal belongings have been returned to the patient/family upon their departure from the unit. Patient has been discharged to home The patient has been discharged without VNA services. * Gm Abad MD - 07/17/2023 11:33 AM EDT Cardiac Electrophysiology Progress Note Patient Name: Meryl Horn Patient Age: 37 y.o. Language: Guamanian Race: White Ethnicity: Not nor Admit date: 07/16/2023 Discharge date and time: 07/17/23 Attending Physician: Abel Benson MD Discharge Physician: Abel Benson MD Follow-up Recommendations for Providers: - s/p pulmonary vein isolation with pulsed wave ablation (electroporation) - Continue anticoagulation with apixaban for three months post procedure - Flecainide was discontinued. - Propranolol may be tapered off unless needed for anxiety or hypertension. 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 Discharge Diagnoses (Hospital Problems) and Secondary Diagnoses (Chronic Problems): Active Hospital Problems Diagnosis Paroxysmal atrial fibrillation Resolved Hospital Problems No resolved problems to display. 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 Hospital Course: See procedure note. Next day discharge. #Atrial fibrillation As noted elsewhere, the procedure was prolonged due to suspicion of left atrial thrombus on intracardiac echo which was determined to be artifact by WARREN. There was phrenic nerve capture during right sided pulse delivery. #Postop Pain He described a severe right sided flank pain provoked by speaking, deep breathing, or movement of his abdominal muscles, possibly due to stimulation of the diaphragm during the case. This was managedwith po and IV medications and improved rapidly. Vital Signs at Discharge: BP: 118/59, Heart Rate: 57, Temp: 36.9 ??C (98.4 ??F), Resp: 20, BMI (Calculated): 24.18 Height: 195.6 cm (6' 5) (07/16/23 0906) Weight: 92.5 kg (203 lb 14.4 oz) (07/16/23 09) Admission Diagnoses: PAF (paroxysmal atrial fibrillation) [I48.0] Paroxysmal atrial fibrillation [I48.0] Discharge Diagnoses: PAF (paroxysmal atrial fibrillation) [I48.0] Paroxysmal atrial fibrillation [I48.0] Discharge Exam: Well appearing Clear lungs Regular S1/S2 Groin sites clean/dry, no hematoma Telemetry shows sinus rhythm throughout. Discharge to: home Updated Allergies/ADRs: Allergies Allergen Reactions Codeine Nausea Only Discharge Medications: Your Medications Continued medications, unchanged Dose Details apixaban 5 mg tablet Commonly known as: Eliquis Take 1 tablet by mouth 2 times daily for 90 days. 5 mg Refills: 0 LORazepam 0.5 mg tablet Commonly known as: Ativan 1-2 tabs TID PRN anxiety. Quantity: 30 tablet Refills: 2 traZODone 50 mg tablet Commonly known as: Desyrel 1/2 to 2 tabs HS as directed (I provided him a specific titration schedule.Please call our office if questions.) Quantity: 30 tablet Refills: 2 STOPPED Medications aspirin EC 81 mg EC () tablet flecainide 100 mg tablet Commonly known as: Tambocor propranolol LA 60 mg ER 24 hr capsule Commonly known as: Inderal LA Instructions Given to Patient at Discharge: Patient Instructions DISCHARGE INSTRUCTIONS FOLLOWING YOUR ABLATION Catheter Insertion Area Care - You may [...] If there is rapid swelling with a ???black and blue?? color at the catheter insertion area, there [...] (or anything else out of the ordinary): Chest discomfort. Inflammation in the form of [...] it commonly responds well to anti-inflammatory medication. Fever or sweats, significant malaise. Possibly a [...] an urgent medical assessment should be obtained. This is not an exhaustive list. If the patient experiences anything out of the ordinary post-procedure, he/she is encouraged to contact his/her physician or the Cardiac Electrophysiology Service . General Instructions None Future Appointments and Orders Future Appointments and Orders Future Appointments Provider Department Dept Phone 07/18/2023 9:00 AM Diony Fernandes MD [facility] Arrive at: Home [phone] To view instructions for your video visit, click here, or visit this website: [email or web address] If you have not previously downloaded the [facility] patient portal software, [employer], or the [employer] clyde, please do so by clicking one of these links below or searching in your device's clyde store. For all desktops/laptops; for Android devices; for Apple/[employer] devices Please test your camera and microphone prior to your video visit. FAQs: Join Video Visit button not connecting? - This may be due to pop-up blockers. - Click this link to see: How to Disable Pop-Up Block for [employer] Video Visits Zoom asking for a meeting password? - Exit out of the Zoom program and try the link again 09/12/2023 12:30 PM Gregoria Hsieh, [facility] Center at [facility] Arrive at: [employer] [phone] Associated attestation - Abel Benson MD - 07/17/2023 4:20 PM EDT Cardiac Electrophysiology Attending Addendum: The patient was seen, interviewed and examined by me, and Dr. Hay's associated note was reviewedby me and agreed with. To summarize, Mr Horn is a 37 yo otherwise healthy man with highly symptomatic paroxysmal atrial fibrillation for which he underwent a pulsed field ablation on 07/16/23. Post-op course notable for some intermittent probable R hemidiaphragm spasm pain w/ referred pain to R shoulder, subsiding markedly by this morning. CXR finds no diaphragm paresis. Plan for clinical follow-up in 2-3 months. Exam: BP 118/59 Pulse 57 Temp 36.9 ??C (98.4 ??F) (Oral) Resp 20 Ht 195.6 cm (6' 5) Wt 92.5 kg(203 lb 14.4 oz) SpO2 96% BMI 24.18 kg/m?? A&O x 3. GENTILE, Anxious disposition at baseline Lungs clear to auscultation bilaterally Bilateral diaphragms move well to percussion Heart RRR S1 S2 no murmurs, rubs or gallops Extr - bilateral groins benign w/o hematomas, no edema Plan - DC flecainide, Clinical f/u in 2-3 months, earlier PRN. Continue apixiban. Abel Benson MD, PhD, [facility] Cardiac Electrophysiology * Shannan Garcia, RN - 07/16/2023 5:26 PM EDT 1700) Covering for dinner break. Arias PEARSON 1720) Handoff accepted and patient transported to [facility]. Arias PEARSON * Hannah Carroll RN - 07/16/2023 3:35 PM EDT Arrived from in bed. Attached to monitors and alarms set appropriately for patient. Right groin with cybeck and stop cock, left groin CDI documented in this encounter H&P Notes * Abel Benson MD - 07/16/2023 9:26 AM EDT Patient Name: Meryl Horn Patient Age: 37 y.o. Birthdate: 1985 Admit date: 07/16/2023 Attending Physician: Abel Benson MD See ED Consult of 06/20/22 for full details. Meryl Horn is a 37 y.o. male is a 37 yo seg[place] presenting for elective left atrial pulsed field ablation and contingent RA radiofrequency ablation (if atrial flutter is induced) for the treatment and management of highly symptomatic .paroxysmal atrial fibrillation. 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 EF 45% Patient Active Problem List Diagnosis Code PAF (paroxysmal atrial fibrillation) I48.0 Outpatient Medications Marked as Taking for the 07/16/23 encounter (Hospital Encounter) Medication Sig Dispense Refill LORazepam (Ativan) 0.5 mg tablet 1-2 tabs TID PRN anxiety. 30 tablet 2 apixaban (Eliquis) 5 mg tablet Take 1 tablet by mouth 2 times daily. 60 tablet 0 flecainide (Tambocor) 100 mg tablet Take 1 tablet by mouth 2 times daily. 60 tablet 0 propranoloL (Inderal LA) 60 mg ER 24 hr capsule Take 1 capsule by mouth daily. 90 capsule 3 traZODone (Desyrel) 50 mg tablet 1/2 to 2 tabs HS as directed (I provided him a specific titration schedule.Please call our office if questions.) 30 tablet 2 aspirin EC 81 mg Tablet, Delayed Release (E.C.) Take 81 mg by mouth daily. Allergies Allergen Reactions Codeine Nausea Only Exam: BP 137/83 (BP Location (NBP): Left arm) Pulse 72 Temp 36.4 ??C (97.5 ??F) (Temporal) Ht 195.6cm (6' 5) Wt 92.5 kg (203 lb 14.4 oz) SpO2 100% BMI 24.18 kg/m?? A&O x 3. Grossly nonfocal. Lungs clear to auscultation bilaterally Heart RRR S1 S2 no murmurs, rubs or gallops Abd : benign Extr no edema A/P: 37 yo man presenting for elective electrophysiology study and ablation for troublesome paroxysmal atrial fibrillation (and contingent atrial flutter ablation). He has held apixiban x 1 dose, propranolol x 2 doses and flecainide x no doses (took 100 mg po this AM). Has felt some PAF palpitations on/off , most recently nigh of -Sunday - he took 1 extra flecainide w/ termaination. Rationales for, intended benefits and potential risks (vascular, pericardial, myocardial, esophageal, nerves, cerebral of planned procedures reviewed. The patient indicated understanding and agreement with the plan. Informed consent for WARREN and EPS/ablation signed. Plan for [place], [place], overnight stay. Abel Benson MD, PhD, [facility] Cardiac Electrophysiology 07/16/2023 9:36 AM documented in this encounter Plan of Treatment Upcoming Encounters Date Type Department Care Team (Late st Contact Info) Description 02/29/2024 7:30 PM EDT Procedure visit Sleep Center at [facility] [address] [place] [address] 04/11/2024 1:00 PM EST Office Visit Cardiology at [address] [address] Gerardo Lobo MD [facility] [place] [address] documented as of this encounter Procedures Procedure Name Priority Date/Time Associated Diagnosis Comments XR CHEST ONE VIEW STAT 07/16/2023 5:0 5 PM EDT EKG 12-LEAD Routine 07/16/2023 4:20 PM EDT PAF (paroxysmal atrial fibrillation) WARREN W LMTD SPECTRAL DOPPLER COLOR DOPPLER Routine 07/16/2023 1:46 PM EDT PAF (paroxysmal atrial fibrillation) WARREN W LMTD SPECTRAL DOPPLER COLOR DOPPLER Routine 07/16/2023 10:41 AM EDT PAF (paroxysmal atrial fibrillation) ELECTROPHYSIOLOGY PROCEDURE Routine 07/16/2023 10:00 AM EDT PAF (paroxysmal atrial fibrillation) TRANSESOPHAGEAL ECHO DURING CATH/EP PROCEDURE 07/16/2023 9:49 AM EDT PAF (paroxysmal atrial fibrillation) ABORH RECHECK STATUS STAT 07/16/2023 8:18 AM EDT BMP W/FASTING GLUCOSE STAT 07/16/2023 8:18 AM EDT HEMOGRAM STAT 07/16/2023 8:18 AM EDT DIFFERENTIAL, AUTOMATED STAT 07/16/19 8:18 AM EDT CBC (WITH DIFF) STAT 07/16/2023 8:18 AM EDT TYPE AND SCREEN ([facility] [place] STAT 07/16/2023 8:18 AM EDT documented in this encounter Results * XR Chest One View (07/16/2023 5:05 PM EDT) Anatomical Region Laterality Modality Chest N/A Digital Radiogra phy Impressions 07/16/2023 5:08 PM EDT No acute pulmonary process. Thank you for letting us participate in the care of this patient. ??If you are a health care provider and have any questions regarding this report, please contact the number below. ??For patients who have questions please contact the health director of managed care that requested your imaging first. ? Electronically signed by: Mason Subramanian MD, [facility] ??([phone]), at 07/16/2023 5:08 PM Narrative 07/16/2023 5:08 PM EDT EXAMINATION: XR CHEST ONE VIEW CLINICAL HISTORY: R sided chest discomfort. A fib ablation this AM. ? PTX TECHNIQUE: 1 view of the chest COMPARISON: None FINDINGS: The lungs are clear. No airspace consolidation, pleural effusion, or pneumothorax. The cardiomediastinal silhouette and pulmonary vascularity are within normal limits. No acute osseous abnormality is seen. Suture anchors consistent with prior labral repair in the anterior left glenoid. Left shoulder joint osteoarthritis. Procedure Note Mason Subramanian MD - 07/16/2023 EXAMINATION: XR CHEST ONE VIEW CLINICAL HISTORY: R sided chest discomfort. A fib ablation this AM. ? PTX TECHNIQUE: 1 view of the chest COMPARISON: None FINDINGS: The lungs are clear. No airspace consolidation, pleural effusion, or pneumothorax. The cardiomediastinal silhouette and pulmonary vascularityare within normal limits. No acute osseous abnormality is seen. Sutureanchors consistent with prior labral repair in the anterior left glenoid. Leftshoulder joint osteoarthritis. IMPRESSION No acute pulmonary process. Thank you for letting us participate in the care of this patient. If youare a health care provider and have any questions regarding this report,please contact the number below. For patients who have questions please contactthe health director of managed care that requested your imaging first. Abel Benson MD IMG DX ORDERABLES * EKG 12 Lead (07/16/2023 4:20 PM EDT) Ventricular rate 62 BPM MUSE SYSTEM Atrial Rate 62 BPM MUSE SYSTEM P-R Interval 168 ms MUSE SYSTEM QRS Duration 96 ms MUSE SYSTEM Q-T Interval 420 ms MUSE SYSTEM QTC Calculated (Bezet) 426 ms MUSE SYSTEM Calculated P Cornell 72 degrees MUSE SYSTEM Calculated R Cornell 90 degrees MUSE SYSTEM Calculated T Cornell 65 degrees MUSE SYSTEM INTERPRETATION Normal sinus rhythm Rightward axis Nonspecific ST and T wave abnormality Abnormal ECG When compared with ECG of 20-JUN-2023 12:13, Nonspecific T wave abnormality now evident in Inferior leads Confirmed by MD LOO SALVATORE ([id number]) on 07/17/2023 1:30:24 PM MUSE SYSTEM 07/16/2023 4:20 PM EDT 07/17/2023 1:30 PM EDT Abel Benson MD ECG ORDERABLES MUSE SYSTEM * WARREN W LMTD SPECTRAL DOPPLER COLOR DOPPLER (07/16/2023 1:46 PM EDT) Anatomical Region Laterality Modality Cardiac Other 07/16/2023 1:16 PM EDT Narrative 07/16/2023 3:12 PM EDT ? Transesophageal Echocardiogram Report Name: MERYL HORN ?Study Date: 07/16/2023 01:16 PM ? Patient Location: EP EP04 A : 1985 ? Height: 196 cm ? Account: [id number] Age: 37 yrs ? Weight: 93 kg Gender: Male ?BSA: 2.3 m2 Ordering Physician: CRISTOPHER^F Referring Physician: NATANAEL Performed By: Gm Dixon MD Reason For Study: Atrial fibrillation Interpreting Fellow: Gm Dixon. Exam Location: [facility]. Interpretation Summary Limited WARREN performed in the EP on an urgent basis to rule out catheter related clot in the LA during the EP procedure. ICE images reviewed. There is a catheter that crosses the anteroseptum. There is no evidence of mass/thrombus on the catheter or in the left atrium. See full WARREN report from earlier today for other details. Procedure A limited transesophageal echocardiogram study was performed. Additional evaluation with color flow Doppler and limited spectral Doppler was performed. After suitable sedation by anesthesia, the probe was inserted without difficulty. Standard views were obtained in the transgastric, mid esophageal, and basal planes using a multiplane transesophageal echo probe. Additional evaluation with color flow Doppler and limited spectral Doppler was performed. There were no complications during the procedure. The study images were of technically excellent quality. Left Atrium There is no evidence of a mass or thrombus. There is a catheter that crosses the anteroseptum. There is no evidence of mass/thrombus on the catheter or in the left atrium. Aortic Valve The aortic valve is tricuspid. I ?WMSI = ? % Normal = ?Segments ??Size X - Cannot ?? 1 - Normal ?? 2 - ? 3 - Akinetic 4 - ?1-2 ? small Interpret ? Hypokinetic ?Dyskinetic ?? 3-5 ? moderate 5 - ? 6-14 ?large Aneurysmal ?15-16 ?? diffuse Procedure Note Ronnie Loo MD - 07/16/2023 Transesophageal Echocardiogram Report Name: MERYL HORN Study Date: 401:16 PM Patient Location: [address] : 1985 Height: 196 cm Account: [id number] Age: 37 yrs Weight: 93 kg Gender: Male BSA: 2.3 m2 Ordering Physician: CRISTOPHER^F Referring Physician: UNKNOWN Performed By: Gm Dixon MD Reason For Study: Atrial fibrillation Interpreting Fellow: Gm Dixon. Exam Location: [facility]. Interpretation Summary Limited WARREN performed in the EP on an urgent basis to rule out catheterrelated clot in the LA during the EP procedure. ICE images reviewed. There is a catheter that crosses the anteroseptum. There is no evidenceof mass/thrombus on the catheter or in the left atrium. See full WARREN report from earlier today for other details. Procedure A limited transesophageal echocardiogram study was performed. Additional evaluation with color flow Doppler and limited spectral Doppler wasperformed. After suitable sedation by anesthesia, the probe was inserted withoutdifficulty. Standard views were obtained in the transgastric, mid esophageal, andbasal planes using a multiplane transesophageal echo probe. Additional evaluation withcolor flow Doppler and limited spectral Doppler was performed. There were no complications during the procedure. The study images were of technicallyexcellent quality. Left Atrium There is no evidence of a mass or thrombus. There is a catheter thatcrosses the anteroseptum. There is no evidence of mass/thrombus on the catheter or inthe left atrium. Aortic Valve The aortic valve is tricuspid. I WMSI = ? % Normal = ? SegmentsSize X - Cannot 1 - Normal 2 - 3 - Akinetic 4 - 1-2small Interpret Hypokinetic Dyskinetic 3-5moderate 5 - 6-14large Aneurysmal 15-16diffuse Abel Benson MD ECHO ORDERABLES * WARREN W LMTD SPECTRAL DOPPLER COLOR DOPPLER (07/16/2023 10:41 AM EDT) [facility] EF 55 HEARTLAB SYSTEM Anatomical Region Laterality Modality Cardiac Other 07/16/2023 9:43 AM EDT Narrative 07/16/2023 11:18 AM EDT ? Transesophageal Echocardiogram Report Name: MERYL HORN ?Study Date: 07/16/2023 09:43 AM ? Patient Location: [place] [address] A : 1985 ? Height: 77 in ? Account: [id number] Age: 37 yrs ? Weight: 205 lb Gender: Male ?BSA: 2.3 m2 Ordering Physician: ABEL BENSON Referring Physician: ABEL BENSON Performed By: Gm Dixon MD Reason For Study: Atrial fibrillation Interpreting Fellow: Gm Dixon. Exam Location: [facility]. Interpretation Summary WARREN performed in the EP [...] HORN Study Date: 409:43 AM Patient Location: [address] : 1985 Height: 77 in Account: [id number] Age: 37 yrs Weight: 205 lb Gender: Male BSA: 2.3 m2 Ordering Physician: ABEL BENSON Referring Physician: ABEL BENSON Performed By: Gm Dixon MD Reason For Study: Atrial fibrillation Interpreting Fellow: Gm Dixon. Exam Location: [facility]. Interpretation Summary WARREN performed in the EP [...] Dyskinetic 3-5moderate 5 - 6-14large Aneurysmal 15-16diffuse Abel Benson MD ECHO ORDERABLES * ELECTROPHYSIOLOGY PROCEDURE (07/16/2023 10:00 AM EDT) Anatomical Region Laterality Modality Other Addenda Addendum by Abel Benson MD on 07/17/2023 7:52 AM EDT Table formatting from the original result was not included. Images from the original result were not included. Atrial Fibrillation Pulsed Field Ablation: Electrophysiology Study, Transseptal Left Atrial Access, Intracardiac Echo Imaging, 3-Dimensional Intracardiac Electroanatomic Mapping, Left Atrial Ablation Tape Rules Printing Machine Operator: Abel Benson MD PhD Fellow: Gm Abad MD Indication: Symptomatic paroxysmal atrial fibrillation Total Fluoroscopy Time: ??27.4 ??minutes. Total dose area product: 800 cGycm2. Background: 37 yo segura presenting for elective left atrial pulsed field ablation and contingent RA radiofrequency ablation (if atrial flutter is induced) for the treatment and management of highly symptomatic paroxysmal atrial fibrillation. The patient is anticoagulated with apixaban for jonah-procedural stroke prophylaxis. A WARREN performed in the EP lab confirmed absence of thrombus prior to the procedure. Method: ??After confirmation of informed consent, the patient was brought to the Electrophysiology Laboratory in the fasting state. A time out was performed. Continuous electrocardiographic monitoring was instituted. General anesthesia and airway were managed by the Anesthesiology Service. Both femoral regions were prepared and draped in the usual sterile manner. Local anesthesia was achieved with a 3:2 mixture of 2% lidocaine and 0.5% bupivacaine administered subcutaneously. Using ultrasound for guidance, the following hemostatic sheaths (all with sidearms and flushed) were inserted using a modified Seldinger micropuncture technique. Catheters were positioned under 3D electroanatomical mapping and fluoroscopic guidance as follows: Sheaths and Catheters: Sheath Catheter Insertion site Site 8-Fr short exchanged for 12-Fr ? 'FaraDrive' Steerable Sheath 7-Fr Pentaray mapping catheter OR 'FaraWave' ablation catheter Right femoral vein Left atrium 5-Fr short ??Placeholder Right femoral vein ?? 9-Fr long 8-Fr Soundstar intracardiac echo Left femoral vein Right atrium ?? 7-Fr long 6-Fr Decapolar Inquiry ??Left femoral vein Coronary sinus At the conclusion of the ablation procedure, prior to catheter removal, the pulmonary veins and the pericardial space were surveyed using intracardiac echocardiography, with no significant effusion identified (unchanged from initial ICE imaging). ?? Catheters and sheaths were removed, and hemostasis was achieved via manual compression (following administration of a total of 35 mg of protamine intravenously). A Figure of 8-stitch was used to close the left femoral 16 Fr ablation sheath access site as well. ?? The patient tolerated the procedure well, with no apparent acute complications and was transferred to the recovery area in stable condition. A single 'figure 8' suture was applied to the right femoral vein through a 3-way stopcock. Baseline Assessment and pre-ablation EPS: Baseline Intervals in sinus rhythm (presenting rhythm): ??SCL: 971 ms ??WY: ?? 195 ms ??AH: ?70 ms ?HV: ?65 ms ??QRS: ??115 ms ??QT: ?? 404 ms Pacing from the Coronary sinus: AV wenckebach : Not obtained RA ERP 600/300 AV Node ERP: </= AERP which was 600-230 Ventricular pacing not performed nor indicated.. Transeptal Access: We used Carto and the Pentaray mapping catheter to create matrix in the right atrium and coronary sinus ostium prior to trans-septal access. Carto-Sound was used to create left atrial contours (shell) and identify pulmonary vein ostia. The short 8 Libyan sheath in the right femoral vein was replaced with the FaraDrive steerable sheath placed over a 90 cm guidewire. An i.v. Heparin bolus of 12,000 units was administered followed by an infusion at 2600 units per hour. ??Periodic IV heparin boluses and the gtt were titrated to achieve an ACT target of 300-400 seconds was maintained for the procedure. One measurement post transeptal did measure 270 secs and was promptly corrected. The Bernadine RF transeptal access wire was placed into the FaraDrive sheath. The tip of the sheath was positioned at the anterior aspect of the foramen ovalis (with 'tenting of the fossa' seen) and the guidewire was advanced in the left atrium guided by ICE imaging, after a brief < 1 second application of radiofrequency energy and visualisation with ICE for left atrial entry. Catheter Exchange The Bernadine RF trans-septal access wire was advanced into the LUPV and the 'FaraDrive' sheath was advanced over the guidewire into the left atrium after appropriately de-airing the catheter and flushing thoroughly according to provided instructions. All side arms received a continuous infusion of heparinised saline. The RF guidewire was now replaced with a J-Tipped 0.035 Charlton guidewire placed through the FaraPulse catheter, for pulmonary vein positioning. Left Atrial Anatomy and Mapping: Geometry and a voltage map(s) during CS pacing were CARTO and the Pentaray multipolar diagnostic catheter. There were four main pulmonary veins. At one point in the procedure, an intracardiac echocardiographic density was noted concerning for potential left atrial thrombus (related to the sheath). Multiple ICE views, reviewed with Dr. Ronnie Loo, and repeat WARREN by Dr Loo confirmed the absence of thrombus, but rather echogenic artifact. This process, conducted for safety, did prolong the procedure duration from expected. Ablation in the Left Atrium: The left upper pulmonary vein was targeted for ablation first, followed by the LIPV, RIPV and RSPV. Limited electroanatomic mapping was performed in each of the veins which were then sampled for electrical signal with the FaraPulse mapping catheter. This catheter was manipulated into Basket, 'Flower' ,'Elwood and Biscuit configurations as appropriate. Lesion parameters were as follows Vein 'Basket' / number of lesions 'Flower'/ number of lesions Additional lesions Notes LUPV 4 4 4 in Elwood 4 reinforced posterior daniela ? LIPV 4 4 2 Posterior LLPV (Flower) ? RIPV 4 4 4 Biscuit ? RUPV 4 4 4 Flower (anterior) 2 Flower (septal) ? Other ? Left atrial dwell time: 180 minutes. ?? Total pulsed field applications: 40 Post Ablation Repeat mapping After completion of the ablation sets, the mapping catheter was once again used to perform a voltage map of the atrium and to confirm pulmonary vein isolation. Exit block was also confirmed either by pacing inside the veins or observation of spontaneous isolated firing within the veins which did not capture the atrium. The catheters were now returned to the right atrium and IV heparin discontinued. . The left atrium, PV ostia and pericardial space were reviewed with the intra cardiac ultrasound catheter, looking for pericardial effusion and thrombus, with no evidence for either Posterior projection of the left atrium voltage map at baseline. Posterior projection of the left atrium voltage map at baseline. Results: Successful PFA isolation of all 4 main pulmonary veins Normal conduction system with mild HV prolongation attributable to uninterrupted flecainide An atrial flutter (CL 230-270ms) was briefly induced but terminated prior to mapping. It was not able to be reinduced despite aggressive provocative programmed electrical stimulation Plan: Admit for observation Discontinue Flecainide at this time Consider continuing / down-titrating propranolol for now based on HR and BPs while awake in sinus rhythm. I served as the wooling machine operator for this entire procedure, was ??present for the entire procedure and personally edited this report. Abel Benson MD PhD Abel Benson MD EP PROCEDURE ORDERAB LES * [facility] Recheck Status (07/16/2023 8:18 AM EDT) Pathologist [facility] Recheck Order Order Placed [facility] AB[facility] Type Recheck Completed [facility] Blood 07/16/2023 8:18 AM EDT 07/16/2023 8:24 AM EDT Narrative Resulting Agency Comment Spec In Lab Abel Benson MD BLOOD BANK LAB ORDER ALVA [facility] [place] [address] * (ABNORMAL) Differential, Automated (07/16/2023 8:18 AM EDT) Neutrophil % 45.4 % [facility] Neutrophil Absolute 3.85 1.70 - 6.10 x10(3)/mc L [facility] Lymph % 35.6 % [facility] Lymphocytes Abs 3.0 0.9 - 3.2 x10(3)/mc L [facility] Monocyte % 9.5 % [facility] Monocyte Abs 0.8 0.3 - 0.9 x10(3)/mc L [facility] Eos % 8.2 % [facility] Eosinophils Abs 0.7(H) 0.0 - 0.4 x10(3)/mc L [facility] Basophil % 1.1 % [facility] Baso Absolute 0.1 0.0 - 0.1 x10(3)/ L [facility] Immature Gran % 0.20 % [facility] Comment: Immature granulocytes(IG's)percentage and absolute count will include metamyelocytes, myelocytes, and promyelocytes. Blood smears from CBCs yielding IG's will be scanned manually for concordance. If this scan disagrees with the automated IG or if promyelocytes are noted, a manual differential will be performed. Immature Gran Absolute 0.02 0.00 - 0.04 x10(3)/[facility] Blood 07/16/2023 8:18 AM EDT 07/16/2023 8:28 AM EDT Narrative Resulting Agency Comment Spec In Lab Abel Benson MD HEMATOLOGY ORDERABLE S Performing Organization Address City/State/[facility] Co de Phone Number [facility] [place] [address] * (ABNORMAL) Hemogram (07/16/2023 8:18 AM EDT) White Blood Cell 8.5 4.0 - 9.5 x10(3)/[facility] LABORATORY Red Blood Cell 5.16 4.58 - 5.54 x10(6)/[facility] Hemoglobin 16.2 13.7 - 16.5 g/dL [facility] Hematocrit 48.9(H) 40.5 - 48.5 % [facility] Mean Cell Volume 94.8(H) 82.9 - 93.1 fL [facility] Mean Cell Hemoglobin 31.4 27.5 - 32.1 pg [facility] Mean Cell Hemoglobin Concentration 33.1 32.0 - 35.7 g/dL [facility] Platelet 308 145 - 357 x10(3)/[facility] RDW Standard Deviation 45.1(H) 36.0 - 45.0 fL [facility] RDW coefficient of variation 12.9 11.4 - 13.8 % [facility] Mean Platelet Volume 8.9 7.6 - 12.9 fL [facility] NRBC% auto 0.0 % [facility] NRBC Absolute 0.000 0.000 - 0.000 x10(3)/mc L [facility] Blood 07/16/2023 8:18 AM EDT 07/16/2023 8:28 AM EDT Narrative Resulting Agency Comment Spec In Lab Abel Benson MD HEMATOLOGY ORDERABLE S Performing Organization Address City/State/[facility] Co de Phone Number [facility] [place] [address] * (ABNORMAL) BMP w/fasting Glucose (07/16/2023 8:18 AM EDT) Glucose Fasting 120(H) 65 - 99 mg/dL [facility] Comment: ?Fasting* Glucose Interpretive Criteria Normal ?65-99 mg/dL Impaired Fasting glucose ?100-125 mg/dL Consistent with Diabetes Mellitus ? >or= 126 mg/dL *Fasting is defined as no caloric intake for at least 8 hours In the absence of unequivocal hyperglycemia a plasma glucose value of >or= 126 mg/dL should be repeated on a subsequent day. Diagnosis and Classification of Diabetes Mellitus, Position Statement from the [place] [employer]. ??Diabetes Care, Volume 33, Supplement 1, Apr 2009 Blood Urea Nitrogen 14 10 - 20 mg/dL [facility] Creatinine 0.99 0.80 - 1.50 mg/dL [facility] Sodium 140 135 - 145 mmol/L [facility] Potassium 4.4 3.5 - 5.0 mmol/L [facility] Comment: Please note: ??Patients with WBC >100,000 may have falsely elevated Potassium levels. ??For accurate Potassium quantification in these patients send serum separator tube (gold top) for subsequent determinations. ??Contact the Clinical Chemistry Laboratory if there are any questions. Chloride 102 98 - 107 mmol/L [facility] Carbon Dioxide 30 22 - 31 mmol/L [facility] Anion Gap 8 5 - 15 mmol/L [facility] Calcium 9.7 8.5 - 10.5 mg/dL [facility] Est Glomerular Filtration Rate 100 >=60 mL/min/1. 73 m?? [facility] Comment: This patient's estimated GFR was [...] and symptoms in addition to eGFR. Blood 07/16/2023 8:18 AM EDT 07/16/2023 8:28 AM EDT Narrative Resulting Agency Comment Spec In Lab Abel Benson MD CHEMISTRY ORDERABLES Performing Organization Address City/[facility]/ZIP Co de Phone Number [facility] [place] [address] * Type and screen [place] [place] (07/16/2023 8:18 AM EDT) Pathologist [facility] Type A NEGATIVE [facility] Patient BB History Not Found [facility] Expires at 2352 on: 07-19-2023 [facility] Ab Screen Interp Negative [facility] Blood 07/16/2023 8:18 AM EDT 07/16/2023 8:18 AM EDT Narrative [facility] - 07/16/2023 8:18 AM EDT This Type and Screen result is only valid at the [facility] Resulting Agency Comment Spec In Lab Abel Benson MD BLOOD BANK LAB ORDER ALVA Performing Organization Address City/[facility]/ZIP Co de Phone Number [facility] [place] [address] documented in this encounter Visit Diagnoses Diagnosis Paroxysmal atrial fibrillation- Primary Atrial fibrillation PAF (paroxysmal atrial fibrillation) Atrial fibrillation PAF (paroxysmal atrial fibrillation) Atrial fibrillation documented in this encounter Admitting Diagnoses Diagnosis Paroxysmal atrial fibrillation Atrial fibrillation documented in this encounter Administered Medications Inactive Administered Medications - up to 3 most recent administrations Medication Order MAR Action Action Date Dose Rate Site acetaminophen (Tylenol) tablet 650 mg 650 mg, Oral, EVERY 4 HOURS PRN, Starting on Sun07/16/23 at 1544, Until Sun07/17/23 at 1424, Pain, Fever, Mild-moderate pain (1-6), Maximum dose of acetaminophen is 4000 mg from all sources in 24 hours. When ordered for pain, acetaminophen should be given even when other ordered pain medications are indicated., Recovery (Recovery-Hospital Unit), Routine Given 07/17/2023 5:23 AM EDT 650 mg Given 07/16/2023 3:50 PM EDT 650 mg acetaminophen (Tylenol) tablet 975 mg 975 mg, Oral, ONCE, 1 dose, On Sun07/16/23 at 0930, Administer with a SIP of water only. Maximum dose of acetaminophen is 4,000 mg from all sources in 24 hours., Day of Surgery (Day of Procedure), Routine Given 07/16/2023 9:44 AM EDT 975 mg apixaban (Eliquis) tablet 5 mg 5 mg, Oral, 2 TIMES DAILY, First dose on Sun07/16/23 at 2100, Until Discontinued, Anticoagulant, Routine, Restricted anticoagulant, choose the most appropriate response: Continuation of ongoing therapy Given 07/17/2023 7:46 AM EDT 5 mg Given 07/16/2023 9:08 PM EDT 5 mg BUpivacaine (pf) (Marcaine) (5 mg/mL) 0.5% injection 150 mg 150 mg (30 mL), Subcutaneous, ONCE, 1 dose, On Sun07/16/23 at 0945, EP (Intra-Procedure), Routine Given 07/16/2023 10:34 AM EDT 150 mg colchicine (Colcrys) tablet 0.6 mg 0.6 mg, Oral, 2 TIMES DAILY PRN, Starting on Sun07/16/23 at 1729, Until Sun07/17/23 at 1424, Pain, pleuritic chest pain, Maximum dose: 2.4 mg/ 24 hours. DO NOT SPLIT, CRUSH OR OPEN, Routine Given 07/16/2023 7:42 PM EDT 0.6 mg ketorolac (Toradol) (15 mg/mL) injection 30 mg 30 mg, Intravenous, EVERY 6 HOURS PRN, Starting on Sun07/16/23 at 1904, Until Sun07/17/23 at 1424, Pain, Routine Given 07/17/2023 5:22 AM EDT 30 mg Given 07/16/2023 7:45 PM EDT 30 mg lactated ringers infusion 1,000 mL, at 100 mL/hr, Intravenous, CONTINUOUS, Starting on Sun07/16/23 at 0930, Until Sun07/16/23 at 1726, Day of Surgery (Day of Procedure) New Bag 07/16/2023 3:14 PM EDT Restarted 07/16/2023 1:12 PM EDT New Bag 07/16/2023 9:45 AM EDT 1,000 mLs 100 mL/hr lidocaine (Xylocaine) (20 mg/mL) 2% injection 400 mg 400 mg (20 mL), Subcutaneous, ONCE, 1 dose, On Sun07/16/23 at 0945, EP (Intra-Procedure), Routine Given 07/16/2023 10:34 AM EDT 400 mg LORazepam (Ativan) (2 mg/mL) injection syringe 1 mg 1 mg, Intravenous, ONCE, 1 dose, On Sun07/16/23 at 1700, Routine Given 07/16/2023 4:43 PM EDT 1 mg LORazepam (Ativan) tablet 0.5 mg 0.5 mg, Oral, ONCE, 1 dose, On Sun07/17/23 at 0830, Routine Given 07/17/2023 9:40 AM EDT 0.5 mg melatonin tablet 3 mg 3 mg, Oral, NIGHTLY PRN, Starting on Sun07/16/23 at 1618, Until Sun07/17/23 at 1424, insomnia, Routine methocarbamoL (Robaxin) tablet 750 mg 750 mg, Oral, ONCE, 1 dose, On Sun07/16/23 at 2130, Routine Given 07/16/2023 9:08 PM EDT 750 mg pregabalin (Lyrica) capsule 50 mg 50 mg, Oral, ONCE, 1 dose, On Sun07/16/23 at 2000, Routine Given 07/16/2023 7:42 PM EDT 50 mg sodium chloride 0.9 % (flush) (BD PosiFlush Normal Saline 0.9) flush 5 mL 5 mL, Intravenous, 2 TIMES DAILY, First dose on Sun07/16/23 at 2100, Until Discontinued, Recovery (Recovery-Hospital Unit), Routine Given 07/16/2023 9:00 PM EDT 5 mLs documented in this encounter Active and Recently Administered Medications Times are shown in EDT. Scheduled Medication Order 07/15/2023 07/16/2023 07/17/2023 acetaminophen (Tylenol) tablet 975 mg (COMPLETED) 975 mg, Oral, ONCE, 1 dose, On Sun07/16/23 at 0930, Administer with a SIP of water only. Maximum dose of acetaminophen is 4,000 mg from all sources in 24 hours., Day of Surgery (Day of Procedure), Routine 0944 (Given - Provider: Miguel Paige RN) apixaban (Eliquis) tablet 5 mg 5 mg, Oral, 2 TIMES DAILY, First dose on Sun07/16/23 at 2100, Until Discontinued, Anticoagulant, Routine, Restricted anticoagulant, choose the most appropriate response: Continuation of ongoing therapy 2107 (Given - Provider: Jessica Espinal RN) 0746 (Given - Provider: Yoseph Madison RN)0900 (Not Given - Provider: Yoseph Madison RN - Reason: See comment - Comment: Given @ 0746) BUpivacaine (pf) (Marcaine) (5 mg/mL) 0.5% injection 150 mg (COMPLETED) 150 mg (30 mL), Subcutaneous, ONCE, 1 dose, On Sun07/16/23 at 0945, EP (Intra-Procedure), Routine 1034 (Given - Provider: Vesta Stanton RN) lidocaine (Xylocaine) (20 mg/mL) 2% injection 400 mg (COMPLETED) 400 mg (20 mL), Subcutaneous, ONCE, 1 dose, On Sun07/16/23 at 0945, EP (Intra-Procedure), Routine 1034 (Given - Provider: Vesta Stanton RN) LORazepam (Ativan) (2 mg/mL) injection syringe 1 mg (COMPLETED) 1 mg, Intravenous, ONCE, 1 dose, On Sun07/16/23 at 1700, Routine 1643 (Given - Provider: Hannah Carroll RN) LORazepam (Ativan) tablet 0.5 mg (COMPLETED) 0.5 mg, Oral, ONCE, 1 dose, On Sun07/17/23 at 0830, Routine 0940 (Given - Provid er: Yoseph Madison RN) methocarbamoL (Robaxin) tablet 750 mg (COMPLETED) 750 mg, Oral, ONCE, 1 dose, On Sun07/16/23 at 2130, Routine 2108 (Given - Provider: Jessica Espinal, MICHEL) pregabalin (Lyrica) capsule 50 mg (COMPLETED) 50 mg, Oral, ONCE, 1 dose, On Sun07/16/23 at 2000, Routine 1942 (Given - Provider: Jessica Espinal, MICHEL) sodium chloride 0.9 % (flush) (BD PosiFlush Normal Saline 0.9) flush 5 mL 5 mL, Intravenous, 2 TIMES DAILY, First dose on Sun07/16/23 at 2100, Until Discontinued, Recovery (Recovery-Hospital Unit), Routine 2100 (Given - Provider: Jessica Espinal RN) 0900 (Due) Continuous Medication Order 07/15/2023 07/16/2023 07/17/2023 lactated ringers infusion (CANCELED) 1,000 mL, at 100 mL/hr, Intravenous, CONTINUOUS, Starting on Sun07/16/23 at 0930, Until Sun07/16/23 at 1726, Day of Surgery (Day of Procedure) 0945 (New Bag - Provider: Annmarie Paige RN)1311 (Paused - Provider: Roland Sanders CRNA - Comment: Switch to gravity)1312 (Restarted - Provider: Roland Sanders CRNA)1514 (New Bag - Provider: Roland Sanders CRNA) PRN Medication Order 07/15/2023 07/16/2023 07/17/2023 acetaminophen (Tylenol) tablet 650 mg 650 mg, Oral, EVERY 4 HOURS PRN, Starting on Sun07/16/23 at 1544, Until Sun07/17/23 at 1424, Pain, Fever, Mild-moderate pain (1-6), Maximum dose of acetaminophen is 4000 mg from all sources in 24 hours. When ordered for pain, acetaminophen should be given even when other ordered pain medications are indicated., Recovery (Recovery-Hospital Unit), Routine 1550 (Given - Provider: Hannah Carroll RN) 0523 (Given - Provider: Jessica Espinal, MICHEL) colchicine (Colcrys) tablet 0.6 mg 0.6 mg, Oral, 2 TIMES DAILY PRN, Starting on Sun07/16/23 at 1729, Until Sun07/17/23 at 1424, Pain, pleuritic chest pain, Maximum dose: 2.4 mg/ 24 hours. DO NOT SPLIT, CRUSH OR OPEN, Routine 1941 (Given - Provider: Jessica Espinal, MICHEL) ketorolac (Toradol) (15 mg/mL) injection 30 mg 30 mg, Intravenous, EVERY 6 HOURS PRN, Starting on Sun07/16/23 at 1904, Until Sun07/17/23 at 1424, Pain, Routine 1944 (Given - Provider: Jessica Espinal, MICHEL) 05 (Given - Provider: Jessica Espinal, MICHEL) lidocaine (Xylocaine) 1% (10 mg/mL) injection 3 mg 3 mg (0.3 mL), Subcutaneous, ONCE PRN, 1 dose, Starting on Sun07/16/23 at 1544, Until Sun07/17/23 at 1424, for discomfort with PIV insertion, Recovery (Recovery-Hospital Unit), Routine melatonin tablet 3 mg 3 mg, Oral, NIGHTLY PRN, Starting on Sun07/16/23 at 1618, Until Sun07/17/23 at 1424, insomnia, Routine sodium chloride 0.9 % (flush) (BD PosiFlush Normal Saline 0.9) flush 5-20 mL 5-20 mL, Intravenous, EVERY 1 MIN PRN, Starting on Sun07/16/23 at 1544, Until Sun07/17/23 at 1424, flush, Flush pertains to all indwelling lines. Flush per protocol found in the job aid using the link provided on this medication record., Recovery (Recovery-Hospital Unit), Routine traZODone (Desyrel) tablet 50 mg 50 mg, Oral, NIGHTLY PRN, Starting on Sun07/16/23 at 1729, Until Sun07/17/23 at 1424, Sleep, Routine documented in this encounter Care Teams Applications Support Analyst Relationship Specialty Start Date End Date Sharri Rosario APRN [address] [place] [address] PCP - General Family Medicine 06/01/22 documented as of this encounter
--- OUTSIDE RECORDS SUMMARY | 2024-02-21 12:25 | XMS_ITS | Encounter Summary ---
Author Organization [facility] Address [facility] [place] [address] Care Team Providers Care Senior Business Objects Developer Name Role Phone Sharri Rosario APRN Primary Care Provider [phone] Encounter Details Date Type Department Care Team (Latest Contact Info) Description 05/01/2023 9:52 AM EST - 05/01/2023 11:59 PM EST Hospital [place] [address] Family history of genetic disorder Discharge Disposition: Home Social History Tobacco Use Types Packs/Day Years Used Date Smoking Tobacco: Former Cigarettes Passive Smoke Exposure: Past Sex and Gender Information Value Date Recorded Sex Assigned at Not on file Gender Identity Not on file Sexual Orientation Not on file documented as of this encounter Medications at Time of Discharge Medication Sig Dispensed Refills Start Date End Date propranoloL (Inderal LA) 160 mg ER 24 hr capsuleIndications:PAF (paroxysmal atrial fibrillation) Take 1 capsule by mouth daily. 90 capsule 3 03/24/2023 06/01/2023 aspirin EC 81 mg Tablet, Delayed Release (E.C.) Take 81 mg by mouth daily. 07/17/2021 07/16/2023 documented as of this encounter Plan of Treatment Upcoming Encounters Date Type Department Care Team (Late st Contact Info) Description 02/29/2024 7:30 PM EDT Procedure visit Sleep Center at [facility] [address] [place] [phone] 04/11/2024 1:00 PM EST Office Visit Cardiology at [address] [address] Gerardo Lobo MD [facility] [place] [address] documented as of this encounter Procedures Procedure Name Priority Date/Time Associated Diagnosis Comments MISCELLANEOUS LAB REQUEST Routine 05/01/2023 9:53 AM EST Family history of genetic disorder MISC SENDOUT Routine 05/01/2023 9:53 AM EST documented in this encounter Results * Misc Sendout (05/01/2023 9:53 AM EST) [facility] Note [facility] Comment: The ordered test is: Family History Testing [facility], [address] [place], [place] [id number] See Scanned Report. Saliva Other / Unknown 05/01/2023 9 :53 AM EST 05/24/2023 9:54 AM EST Kasey Vuong MD LAB SEND OUT [facility] [place] [address] * Miscellaneous Lab request (05/01/2023 9:53 AM EST) Label Request received in lab. [facility] Other 05/01/2023 9:53 AM EST 05/24/2023 9:55 AM EST Narrative Resulting Agency Comment Spec In Lab Kasey Vuong MD LAB SEND OUT [facility] [place] [address] documented in this encounter Visit Diagnoses Diagnosis Family history of genetic disorder Family history of other condition documented in this encounter Care Teams Senior Business Objects Developer Relationship Specialty Start Date End Date Sharri Rosario APRN [address] [place] [address] PCP - General Family Medicine 06/01/22 documented as of this encounter
--- OUTSIDE RECORDS SUMMARY | 2024-02-21 12:25 | XMS_ITS | Encounter Summary ---
[facility] [place] [address] Care Team Providers Care Kieselguhr Regenerator Operator Name Role Phone Sharri Rosario APRN Primary Care Provider [phone] Encounter Details Date Type Department Care Team (Late st Contact Info) Description 12/11/2022 Orders Only [place] [address] [facility] [place] [address] Family history of genetic disorder (Primary Dx) Social History Tobacco Use Types Packs/Day Years Used Date Smoking Tobacco: Former Cigarettes Passive Smoke Exposure: Past Sex and Gender Information Value Date Recorded Sex Assigned at Not on file Gender Identity Not on file Sexual Orientation Not on file documented as of this encounter Progress Notes * Rosalinda Kay [facility] - 12/11/2022 9:40 AM EDT This individual's son, Paul, was seen by Dr. Kasey Vuong for genetics consultation and we have been able to review the results of the genetic testing that was completed in Paul. 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 Jaxon reviewed that I would expect the HNRNPU variant to be absent in Roni's sample but detection of the other three variants is possible/expected in either Roni or his partner, Aydee. 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 Detection of one or both of the variants of uncertain significance would help support that these variants are benign. This testing will be completed at no cost via at-home buccal collection kits which will be sent to the home address from the [facility] lab. Upon receipt, results should take several weeks. We will follow-up with this patient after receipt of his results. Rosalinda Kay MS, [facility] Licensed Genetic Counselor [phone] documented in this encounter Plan of Treatment Upcoming Encounters Date Type Department Care Team (Late st Contact Info) Description 02/29/2024 7:30 PM EDT Procedure visit Sleep Center at [address] [phone] 04/11/2024 1:00 PM EST Office Visit Cardiology at [address] [address] Gerardo Lobo MD [facility] [place] [address] documented as of this encounter Results * Miscellaneous Lab request (05/01/2023 9:53 AM EST) Label Request received in lab. [facility] Other 05/01/2023 9:53 AM EST 05/24/2023 9:55 AM EST Narrative Resulting Agency Comment Spec In Lab Kasey Vuong MD LAB SEND OUT [facility] [address] documented in this encounter Visit Diagnoses Diagnosis Family history of genetic disorder- Primary Family history of other condition documented in this encounter Care Teams Kieselguhr Regenerator Operator Relationship Specialty Start Date End Date Sharri Rosario APRN [address] [place] [address] PCP - General Family Medicine 06/01/22 documented as of this encounter
--- OUTSIDE RECORDS SUMMARY | 2024-02-21 12:25 | XMS_ITS | Encounter Summary ---
Author Organization [facility] [place] [address] Care Team Providers Care Pipe Fitter Soft Copper Name Role Phone Sharri Rosario APRN Primary Care Provider [phone] Encounter Details Date Type Department Care Team (Late st Contact Info) Description 07/03/2023 Orders Only Cardiology at [address] [phone] Abel Benson MD [facility] [place] [address] Social History Tobacco Use Types Packs/Day Years [...] PM EDT Procedure visit Sleep Center at [facility] [address] [place] [address] 04/11/2024 1:00 PM EST Office Visit Cardiology at [address] [address] Gerardo Lobo MD [facility] [place] [address] documented as of this encounter Visit Diagnoses Not on filedocumented in this encounter Care Teams Pipe Fitter Soft Copper Relationship Specialty Start Date End Date Sharri Rosario APRN [address] [place] [address] PCP - General Family Medicine 06/01/22 documented as of this encounter
--- OUTSIDE RECORDS SUMMARY | 2024-02-21 12:25 | XMS_ITS | Encounter Summary ---
Author Organization [facility] [place] [address] Care Team Providers Care Mortgage Loan Counselor Name Role Phone Sharri Rosario APRN Primary Care Provider [phone] Encounter Details Date Type Department Care Team (Latest Contact Info) Description 06/22/2023 Travel Social History Tobacco Use Types Packs/Day [...] PM EDT Procedure visit Sleep Center at [place] [address] [place] [address] 04/11/2024 1:00 PM EST Office Visit Cardiology at [address] [phone] Gerardo Lobo MD [facility] [place] [address] documented as of this encounter Visit Diagnoses Not on filedocumented in this encounter Care Teams Mortgage Loan Counselor Relationship Specialty Start Date End Date Sharri Rosario APRN [address] [place] [address] PCP - General Family Medicine 06/01/22 documented as of this encounter
--- OUTSIDE RECORDS SUMMARY | 2024-02-21 12:25 | XMS_ITS | Encounter Summary ---
[place] [address] Care Team Providers Care Disease Case Manager Rn Name Role Phone Sharri Rosario APRN Primary Care Provider [phone] Reason for Visit * Auth/Cert (Routine) Specialty Diagnoses / Procedures Referred By Contac t Referred To Contact Diagnoses PAF (paroxysmal atrial fibrillation) PAF (paroxysmal atrial fibrillation) [I48.0] Procedures ELECTROPHYSIOLOGY PROCEDURE TRANSESOPHAGEAL ECHO DURING CATH/EP PROCEDURE Abel Benson MD [facility] [place] [address] [facility] Referral ID Status Reason Start Date Expiration Date Visits Re quested Visits Authorized [id number] 1 1 Encounter Details Date Type Department Care Team (Late st Contact Info) Description 07/16/2023 9:00 AM EDT - 07/16/2023 2:30 PM EDT Surgery Electrophys[place] [address] Abel Benson MD [facility] [place] [address] ELECTROPHYSIOLOGY PROCEDURE Social History Tobacco Use Types Packs/Day Years [...] Sign Reading Time Taken Comments Blood Pressure 137/83 07/16/2023 9:06 AM EDT Pulse 72 07/16/2023 9:06 AM EDT Temperature 36.4 ??C (97.5 ??F) 07/16/2023 9:06 AM ED T Respiratory Rate - - Oxygen Saturation 100% 07/16/2023 9:06 AM EDT Inhaled Oxygen Concentration - - Weight 92.5 kg (203 lb 14.4 oz) 07/16/2023 9:06 AM EDT Height 195.6 cm (6' 5) 07/16/2023 9:06 AM EDT Body Mass Index 24.18 07/16/2023 9:06 AM EDT documented in this encounter Discharge Summaries * Gm Abad MD - 07/17/2023 8:27 AM EDT Cardiac Electrophysiology Discharge Summary Patient Name: Meryl Horn Patient Age: 37 y.o. Language: Hungarian Race: White Ethnicity: Not nor Admit date: [...] Cardiac Electrophysiology - Weekends and holidays call [phone]; ask for counselor marriage and family carbon paste mixer operator. Discharge Diagnoses (Hospital Problems) and Secondary Diagnoses [...] Phone 07/18/2023 9:00 AM Diony Fernandes MD [facility] Arrive at: [place] [phone] To view instructions for your video visit, click here, or visit this website: [email or web address] If you have not previously downloaded the [facility] patient portal software, Plex Systems, or the komoot clyde, please do so by clicking one [...] see: How to Disable Pop-Up Block for [facility] Video Visits Zoom asking for a meeting password? - Exit out of the Zoom program and try the link again 09/12/2023 12:30 PM Gregoria Hsieh APRN [facility] Arrive at: [facility] Contact Representative [address] [place] [phone] documented in this encounter Discharge Instructions * [...] Madison RN - 07/17/2023 11:56 AM EDT [facility] Short Stay Unit Discharge Note All relevant [...] Meryl Horn Patient Age: 37 y.o. Language: Hungarian Race: White Ethnicity: Not nor Admit date: [...] Cardiac Electrophysiology - Weekends and holidays call [phone]; ask for counselor marriage and family carbon paste mixer operator. Discharge Diagnoses (Hospital Problems) and Secondary Diagnoses [...] Phone 07/18/2023 9:00 AM Diony Fernandes MD [facility] Arrive at: [place] [phone] To view instructions for your video visit, click here, or visit this website: [email or web address] If you have not previously downloaded the [facility] patient portal software, Plex Systems, or the komoot clyde, please do so by clicking one of these links below or searching in your device's clyde store. For all desktops/laptops; for Android devices; for Apple/FuelFilmS devices Please test your camera and microphone prior to your video visit. FAQs: Join Video Visit button not connecting? - This may be due to pop-up blockers. - Click this link to see: How to Disable Pop-Up Block for [facility] Video Visits Zoom asking for a meeting password? - Exit out of the Zoom program and try the link again 09/12/2023 12:30 PM [facility] at[facility] Contact [facility] [address] [place] [phone] Associated attestation - Abel Benson MD - [...] PRN. Continue apixiban. Abel Benson MD, PhD, [facility] Cardiac Electrophysiology * Shannan Garcia RN - 07/16/2023 5:26 PM EDT 1700) Covering for dinner break. Arias PEARSON 1720) Handoff accepted and patient transported to U #02. Arias RN * Hannah Carroll RN - 07/16/2023 3:35 [...] [place], overnight stay. Abel Benson MD, PhD, [facility] Cardiac Electrophysiology 07/16/2023 9:36 AM documented in this encounter Plan of Treatment Upcoming Encounters Date Type Department Care Team (Late st Contact Info) Description 02/29/2024 7:30 PM EDT Procedure visit [facility] [address] [place] [address] 04/11/2024 1:00 PM EST Office Visit Cardiology at [address] [address] Gerardo Lobo MD [facility] [place] [address] documented as of this encounter Procedures Procedure [...] 07/16/2023 8:18 AM EDT TYPE AND SCREEN ([facility]N) STAT 07/16/2023 8:18 AM EDT documented in [...] who have questions please contact the health assurance services manager health care that requested your imaging first. ? Electronically signed by: Mason Subramanian MD, [facility] ??([phone]), at 07/16/2023 5:08 PM Narrative 07/16/2023 5:08 [...] patients who have questions please contactthe health assurance services manager health care that requested your imaging first. Electronically signed by: Mason Subramanian MD, [facility]([phone]), at 07/16/2023 5:08 PM Abel Benson MD IMG DX ORDERABLES * EKG 12 Lead (07/16/2023 4:20 PM EDT) Ventricular rate 62 BPM MUSE SYSTEM Atrial Rate 62 BPM MUSE SYSTEM P-R Interval 168 ms MUSE SYSTEM QRS Duration 96 ms MUSE SYSTEM Q-T Interval 420 ms MUSE SYSTEM QTC Calculated (Bezet) 426 ms MUSE SYSTEM Calculated P Wentworth 72 degrees MUSE SYSTEM Calculated R [place]worth 90 degrees MUSE SYSTEM Calculated T Wentworth 65 degrees MUSE SYSTEM INTERPRETATION Normal sinus [...] 1985 ? Height: 196 cm ? Account: [id number] Age: 37 yrs ? Weight: 93 kg Gender: Male ?BSA: 2.3 m2 Ordering Physician: CRISTOPHER^Geni Referring Physician: NATANAEL Performed By: Gm Dixon MD Reason For Study: Atrial fibrillation Interpreting Fellow: Gm Dixon. Exam Location: [facility]. Interpretation Summary Limited WARREN performed in the [...] HORN Study Date: 401:16 PM Patient Location: [address] : 1985 Height: 196 cm Account: [id number] Age: 37 yrs Weight: 93 kg Gender: Male BSA: 2.3 m2 Ordering Physician: CRISTOPHER^F Referring Physician: NATANAEL Performed By: Gm Dixon MD Reason For Study: Atrial fibrillation Interpreting Fellow: Gm Dixon. Exam Location: [facility]. Interpretation Summary Limited WARREN performed in the [...] 1985 ? Height: 77 in ? Account: [id number] Age: 37 yrs ? Weight: 205 lb Gender: Male ?BSA: 2.3 m2 Ordering Physician: ABEL BENSON Referring Physician: ABEL BENSON Performed By: Gm Dixon MD Reason For Study: Atrial fibrillation Interpreting Fellow: Gm Dixon. Exam Location: [facility]. Interpretation Summary WARREN performed in the EP [...] HORN Study Date: 409:43 AM Patient Location: [address] : 1985 Height: 77 in Account: [id number] Age: 37 yrs Weight: 205 lb Gender: Male BSA: 2.3 m2 Ordering Physician: ABEL BENSON Referring Physician: ABEL BENSON Performed By: Gm Dixon MD Reason For Study: Atrial fibrillation Interpreting Fellow: Gm Dixon. Exam Location: [facility]. Interpretation Summary WARREN performed in the EP [...] 3-Dimensional Intracardiac Electroanatomic Mapping, Left Atrial Ablation Clinical Resource Coordinator: Abel Benson MD PhD Fellow: Gm Abad [...] sinus rhythm (presenting rhythm): ??SCL: 971 ms ??AL: ?? 195 ms ??AH: ?70 ms ?HV: [...] identify pulmonary vein ostia. The short 8 Comoran sheath in the right femoral vein was [...] This catheter was manipulated into Basket, 'Flower' ,'Hamel and Biscuit configurations as appropriate. Lesion parameters were as follows Vein 'Basket' / number of lesions 'Flower'/ number of lesions Additional lesions Notes LUPV 4 4 4 in Hamel 4 reinforced posterior daniela ? LIPV 4 [...] in sinus rhythm. I served as the radial saw operator for this entire procedure, was ??present for the entire procedure and personally edited this report. Abel Benson MD PhD Abel Benson MD EP PROCEDURE ORDERAB LES * [facility] Recheck Status (07/16/2023 8:18 AM EDT) [facility] Recheck Order Order Placed [facility] Type Recheck Completed [facility] Blood 07/16/2023 8:18 AM EDT 07/16/2023 8:24 AM EDT Narrative Resulting Agency Comment Spec In Lab Abel Benson MD BLOOD BANK LAB ORDER [facility] [place] [address] * (ABNORMAL) Differential, Automated (07/16/2023 8:18 AM EDT) Neutrophil % 45.4 % [facility] Neutrophil Absolute 3.85 1.70 - 6.10 x10(3)/mc L [facility] Lymph % 35.6 % [facility] Lymphocytes Abs 3.0 0.9 - 3.2 x10(3)/mc L [facility] Monocyte % 9.5 % [facility] Monocyte Abs 0.8 0.3 - 0.9 x10(3)/mc L [facility] Eos % 8.2 % [facility] Eosinophils Abs 0.7(H) 0.0 - 0.4 x10(3)/mc L [facility] Basophil % 1.1 % [facility] Baso Absolute 0.1 0.0 - 0.1 x10(3)/mc L [facility] Immature Gran % 0.20 % [facility] Comment: Immature granulocytes(IG's)percentage and absolute count will include metamyelocytes, myelocytes, and promyelocytes. Blood smears from CBCs yielding IG's will be scanned manually for concordance. If this scan disagrees with the automated IG or if promyelocytes are noted, a manual differential will be performed. Immature Gran Absolute 0.02 0.00 - 0.04 x10(3)/mc L [facility] Blood 07/16/2023 8:18 AM EDT 07/16/2023 8:28 AM EDT Narrative Resulting Agency Comment Spec In Lab Abel Benson MD HEMATOLOGY ORDERABLE S [facility] [place] [address] * (ABNORMAL) Hemogram (07/16/2023 8:18 AM EDT) White Blood Cell 8.5 4.0 - 9.5 x10(3)/mc L [facility] Red Blood Cell 5.16 4.58 - 5.54 x10(6)/mc L [facility] Hemoglobin 16.2 13.7 - 16.5 g/dL [facility] Hematocrit 48.9(H) 40.5 - 48.5 % [facility] Mean Cell Volume 94.8(H) 82.9 - 93.[address] [facility] Mean Cell Hemoglobin 31.4 27.5 - 32.[address] [facility] Mean Cell Hemoglobin Concentration 33.1 32.0 - 35.7 g/dL [facility] Platelet 308 145 - 357 x10(3)/mc L [facility] RDW Standard Deviation 45.1(H) 36.0 - 45.[address] [facility] RDW coefficient of variation 12.9 11.4 - 13.8 % [facility] Mean Platelet Volume 8.9 7.6 - 12.[address] [facility] NRBC% auto 0.0 % [facility] NRBC Absolute 0.000 0.000 - 0.000 x10(3)/ L [facility] Blood 07/16/2023 8:18 AM EDT 07/16/2023 8:28 AM EDT Narrative Resulting Agency Comment Spec In Lab Abel Benson MD HEMATOLOGY ORDERABLE S Performing Organization Address [facility]/ZIP Co de Phone Number [facility] [place] [address] * (ABNORMAL) BMP w/fasting Glucose (07/16/2023 8:18 AM EDT) Glucose Fasting 120(H) 65 - 99 mg/dL [facility] Comment: ?Fasting* Glucose Interpretive Criteria Normal [...] of Diabetes Mellitus, Position Statement from the [place] [employer]. ??Diabetes Care, Volume 33, Supplement 1, Apr 2009 Blood Urea Nitrogen 14 10 - 20 mg/dL [facility] Creatinine 0.99 0.80 - 1.50 mg/dL [facility] Sodium 140 135 - 145 mmol/L [facility] Potassium 4.4 3.5 - 5.0 mmol/L [facility] Comment: Please note: ??Patients with WBC >100,000 may have falsely elevated Potassium levels. ??For accurate Potassium quantification in these patients send serum separator tube (gold top) for subsequent determinations. ??Contact the Clinical Chemistry Laboratory if there are any questions. Chloride 102 98 - 107 mmol/L [facility] Carbon Dioxide 30 22 - 31 mmol/L [facility] Anion Gap 8 5 - 15 mmol/L [facility] Calcium 9.7 8.5 - 10.5 mg/dL [facility] Est Glomerular Filtration Rate 100 >=60 mL/min/1. 73 m?? [facility] Comment: This patient's estimated GFR was [...] Resulting Agency Comment Spec In Lab Abel F Marcelino MD CHEMISTRY ORDERABLES [facility] [place] [address] * Type and screen ([facility]CGP/YRN) (07/16/2023 8:18 AM EDT) [facility] Type A NEGATIVE [facility] Patient BB History Not Found [facility] Expires at 2359 on: 07-19-2023 [facility] Ab Screen Interp Negative [facility] Blood 07/16/2023 8:18 AM EDT 07/16/2023 8:[address] [facility] - 07/16/2023 8:18 AM EDT This Type and Screen result is only valid at the [facility] Resulting Agency Comment Spec In Lab Abel Benson MD BLOOD BANK LAB ORDER [facility] [place] [address] documented in this encounter Visit Diagnoses Diagnosis [...] Procedure), Routine 0944 (Given - Provider: Miguel Paige, MICHEL) apixaban (Eliquis) tablet 5 mg 5 mg, [...] 1 dose, On Sun07/16/23 at 2130, Routine 2107 (Given - Provider: Jessica Espinal RN) pregabalin (Lyrica) capsule 50 mg (COMPLETED) 50 mg, Oral, ONCE, 1 dose, On Sun07/16/23 at 2000, Routine 1942 (Given - Provider: Jessica Espinal RN) sodium chloride 0.9 % (flush) (BD PosiFlush Normal Saline 0.9) flush 5 mL 5 mL, Intravenous, 2 TIMES DAILY, First dose on Sun07/16/23 at 2100, Until Discontinued, Recovery (Recovery-Hospital Unit), Routine 2099 (Given - Provider: Jessica Espinal RN) 0900 [...] 1550 (Given - Provider: Hannah Carroll RN) 05 (Given - Provider: Jessica Espinal RN) colchicine (Colcrys) tablet 0.6 mg 0.6 mg, Oral, 2 TIMES DAILY PRN, Starting on Sun07/16/23 at 1729, Until Sun07/17/23 at 1424, Pain, pleuritic chest pain, Maximum dose: 2.4 mg/ 24 hours. DO NOT SPLIT, CRUSH OR OPEN, Routine 194 (Given - Provider: Jessica Espinal, MICHEL) ketorolac (Toradol) (15 mg/mL) injection 30 mg 30 mg, Intravenous, EVERY 6 HOURS PRN, Starting on Sun07/16/23 at 1904, Until Sun07/17/23 at 1424, Pain, Routine 1945 (Given - Provider: Jessica Espinal, MICHEL) 0522 (Given - Provider: Jessica Espinal RN) lidocaine (Xylocaine) 1% (10 mg/mL) injection 3 [...] Routine documented in this encounter Care Teams Disease Case Manager Rn Relationship Specialty Start Date End Date Sharri Rosario APRN [address] [place] [address] PCP - General Family Medicine 06/01/22 documented as of this encounter
--- OUTSIDE RECORDS SUMMARY | 2024-02-21 12:25 | XMS_ITS | Encounter Summary ---
Author Organization [facility]ly [facility] [place] [address] Care Team Providers Care Gauge And Weigh Machine Adjuster Name Role Phone Abraham Sharri CHEEK Primary Care Provider [phone] Reason for Visit * Reason Onset Date Comments Medication Refill 06/01/2023 Encounter Details Date Type Department Care Team (Late st Contact Info) Description 06/01/2023 [place] [id number] Danny Cherry Jr., MD [facility] [place] [address] Medication Refill Social History Tobacco Use Types [...] PM EDT Procedure visit [facility] Center at [facility] [address] [place] [address] 04/11/2024 1:00 PM EST Office Visit Cardiology at [address] [phone] Gerardo Lobo MD [facility] [place] [address] documented as of this encounter Visit Diagnoses Diagnosis PAF (paroxysmal atrial fibrillation) Atrial fibrillation documented in this encounter Care Teams Gauge And Weigh Machine Adjuster Relationship Specialty Start Date End Date Sharri Rosario APRN [address] [place] [address] PCP - General Family Medicine 06/01/22 documented as of this encounter
[2024-02-21 14:50] LABS: HCT 52.8 % (40.0-50.0); HGB 17.4 g/dL (13.5-17.5); MCH 31.7 pg (27.0-33.0); MCV 96 fL (80-95); MPV 8.9 fL (8.0-11.0); Platelet Count 339 10^3/uL (130-400); RBC 5.49 10^6/uL (4.36-5.78); RDW 12.4 % (11.8-14.1); RDW-SD 44.7 fL; WBC 7.19 10^3/uL (4.4-10.8)
[2024-02-21 15:12] LABS: ALT 43 U/L (16-63); AST 27 U/L (15-37); Albumin 4.2 g/dL (3.4-5.0); Alkaline Phosphatase 108 U/L (46-116); Anion Gap 4.7 mmol/L (3-11); BUN 16 mg/dL (7-18); CO2 32.3 mmol/L (21.0-32.0); CREATININE 1.1 mg/dL (0.70-1.30); Calcium 9.9 mg/dL (8.5-10.1); Calculated LDL 98 mg/dL (<100); Chloride 108 mmol/L (98-107); Cholesterol 167 mg/dL (<200); Estimated GFR 87.57 (mL/min/1.73m2); Glucose 114 mg/dL (74-106); HDL Cholesterol 58 mg/dL (40-60); Potassium 5.3 mmol/L (3.5-5.1); Sodium 145 mmol/L (136-145); Total Protein 7.2 g/dL (6.4-8.2); Triglyceride 56 mg/dL (<150)
[2024-02-21 15:45] LABS: Hemoglobin A1C 5.5 % (<5.7)
== END 2024-02-21 12:23 | disposition home or self-care (01) ==
LOC: NCHCN 12:22
PROVIDERS: PCP Nurse Practitioner Family; Visit Provider Nurse Practitioner Family
DX: Z00.00 Encounter for general adult medical examination without abnormal findings (principal); R73.9 Hyperglycemia, unspecified
CPT/HCPCS: 80053; 80061; 85027; 83036